=== PATIENT | female | born 1960 | race Caucasian/White ===

== ENCOUNTER → 2016-11-21 | Outpatient (CLI) | payer MEDICAID ==
[~2016-11-21] MED LIST: ALPRAZOLAM0.5 M3 PO; BENTYL10 M1 PO; CLARITHROMYCIN500 MG PO; KEFLEX500 M1 PO; MELOXICAM15 MG PO; MUCINEX600 M1 PO; NEURONTIN 300M300 MG PO; PANTOPRAZOLE SO40 MG PO; PERCOCET 10 MG1 EACH PO; PERCOCET 325 MG1 TA3 PO; PERCOCET 5/3251 EACH PO; PREDNISONE 10MG10 MG PO; PRILOSEC40 MG PO; VENTOLIN H0.09 MG/AC IH; VITAMIN D1000 IU PO; VOLTAREN75 MG OR; XANAX 1MG TABLET1 MG PO; ZANTAC 150150 MG PO; ZOFRAN ODT4 MG PO
--- NOTE | 2016-11-21 10:01 | RADIOLOGY REPORT PS360 ---
UGI SERIES W/ AIR HISTORY: Abdominal pain, left upper quadrant pain, history of ulcer, heartburn, chest pain, gastroesophageal reflux disease GERD ORDERING PHYSICIAN: ROHAN CORREIA PATIENT AGE: 56 years COMPARISON: None FINDINGS: The esophagus, stomach, and duodenum have an unremarkable appearance. There is no evidence of hiatal hernia. No ulcer or mass evident. No mucosal abnormalities apparent. There is normal peristalsis. The duodenal C-loop is nondisplaced. No hiatal hernia is evident. Reflux was not demonstrated during the exam. FLUOROSCOPY TIME : 1 minute and 34 seconds. IMPRESSION: Negative upper GI
== END ==
LOC: RAD 08:51
DX: K21.9 Gastro-esophageal reflux disease without esophagitis (principal)

== ENCOUNTER 2017-03-04 10:09 | Emergency (ER) | payer MEDICAID ==
[~2017-03-04] VITALS: Ht 177.8 cm; Wt 106.6 kg
[~2017-03-04 10:09] MED LIST changes: +NEXIUM20 MG PO; +TESSALON PERLE100 M1 PO
--- NOTE | 2017-03-04 10:38 | Emergency Room Report ---
History of Present Illness Time Seen by [id number] Presenting Problem in Triage Pt arrived:Walked Presenting Problem:PT C/O LEFT HEEL ,ANKLE AND LEG PAIN. DENIES ANY INJURY AND ADVISES IT HAS BEEN ONGOING FOR A COUPLE OF MONTHS Onset of symptoms date/time:/ or onset unknown for:MEDICAL HX UNKNOWN Treatment Prior to Arrival: TOEING STOCKINGS Provided by: Sepsis Risk Assessment: Temp: 98.2 B/P: MAP: Pulse: 73 Resp: 16 Recent fever? N Clinical Suspician of Infection? N Mental Status: 1 - Regular (Normal Baseline) Sepsis Risk:Low Sepsis Risk Have you (or family members/close friends) recently traveled outside the [place]? N If Yes, where/when: Have you had exposure to infectious disease within the past month? N TB? Other? Specify: Source patient, RN notes reviewed, RN/MD Exam Limitations no limitations Comment Patient presents to the emergency room with LEFT heel/LEFT foot pain for the past 2 months (December). Patient was unable to seek medical care over the past few months since her son has recently. ALLERGIES Coded Allergies: duloxetine (From CYMBALTA) (Mild, 06/08/15) pregabalin (From LYRICA) (Mild, 06/08/15) Home Medications Active Scripts Benzonatate (Tessalon Perle) 100 MG PO TID #15 SGL Prov: 01/20/17 Ondansetron (Zofran 4MG Odt) 4 MG PO Q6HP PRN NAUSEA AND VOMITING #10 ODT Prov: 10/08/16 DICYCLOMINE HCL (Bentyl) 10 MG PO TIDP PRN cramping #10 CAP Prov: 10/08/16 Oxycodone 10 Mg\[id number] (Oxycodone-Acetaminophen 10-325) 1 TAB PO QID PRN pain #120 TAB Prov: 06/05/15 Reported Medications Gabapentin (Neurontin 300MG) 300 MG PO BID Esomeprazole Magnesium (Nexium) 20 MG PO DAILY History Medical History General CAD? No Angina: No ID: No Hypertension? No Hyperlipidemia? No CHF? No DVT? No PE? No COPD? No Asthma? No Anemia? No GERD? No Gastric ulcers? No GI Bleed? No Hernia? No Thyroid Problems? No Hypothyroidism? No CVA? No Seizures? No Diabetes? No Renal Insuffiency? No End Stage Renal Disease? No UTI? No Stones? No BPH? No GB Disease: No Nephritic Syndrome? No Asplenia? No Hepatitis? No Sickle Cell Disease? No Arthritis? Yes Migraines? No Cataracts? No Glaucoma? No MRSA? No HIV? No TB? No Anxiety? No Depression? No Cancer? 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 No: respiratory distress. Lung Sounds bilateral: normal breath sounds, lungs clear. Cardiovascular normal exam, regular rate/rhythm, no peripheral edema, no gallop, no JVD, no murmur, no rub, normal peripheral pulses Extremities normal range of motion, normal inspection, left heel tender to palpation, left plantar web tender to palpation Neurologic alert, grape picker II-XII nml as tested, normal exam, oriented x 3 Skin intact, normal color, warm/dry Medical Decision Making LABS/Meds/Orders Pt receiving controlled substance in ED? No Comment Arrangements made for patient to see Dr. Russell today. Patient advised that she has a history of gastritis, refusing NSAIDs. Steroids would have the same risk with NSAIDs, prefer to refer patient to mds coordinator. Results/Orders Orders Procedure Date/time Status FOOT-RT-3 VIEWS 03/04 1019 Active FOOT-LT-3 VIEWS 03/04 101 Active ANKLE-RT-3 VIEWS 03/04 101 Active ANKLE-LT-3 VIEWS 03/04 101 Active XRAY/CT/US XRAY/CT/US XRAY x-rays LEFT foot negative, x-ray LEFT ankle negative exc left heel osteophite , x-ray LEFT ankle negative, x-ray RIGHT ankle negative Departure Departure Time of Disposition 1035 Disposition DC Home or Self Care(routine) Clinical Impression Primary Impression: Plantar fasciitis of left foot Condition STABLE Referrals AUGUSTIN RUSSELL DPM: Today after leaving ER at 3 pm Patient Instructions DI for Plantar Fasciitis Additional Instructions Please follow-up with Dr. Russell at 3pm, as scheduled from the emergency room. Discharge Counseling Counseled pt/family regarding diagnosis, test results, medications/RX, home care, follow up needs Comment Please follow-up with Dr. Russell at 3pm, as scheduled from the emergency room. ED Critical Care Critical Care No at 1106
--- NOTE | 2017-03-04 10:38 | Emergency Room Report ---
History of Present Illness Time Seen by [id number] Presenting Problem in Triage Pt arrived:Walked Presenting Problem:PT C/O LEFT HEEL ,ANKLE AND LEG PAIN. 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 N Clinical Suspician of Infection? N Mental Status: 1 - Regular (Normal Baseline) Sepsis Risk:Low Sepsis Risk Have you (or family members/close friends) recently traveled outside the [place]? N If Yes, where/when: Have you had exposure to infectious disease within the past month? N TB? Other? Specify: Source patient, RN notes reviewed, RN/MD Exam Limitations no limitations Comment Patient presents to the emergency room with LEFT heel/LEFT foot pain for the past 2 months (December). Patient was unable to seek medical care over the past few months since her son has recently. ALLERGIES Coded Allergies: duloxetine (From CYMBALTA) (Mild, 06/08/15) pregabalin (From LYRICA) (Mild, 06/08/15) Home Medications Active Scripts Benzonatate (Tessalon Perle) 100 MG PO TID #15 SGL Prov: 01/20/17 Ondansetron (Zofran 4MG Odt) 4 MG PO Q6HP PRN NAUSEA AND VOMITING #10 ODT Prov: 10/08/16 DICYCLOMINE HCL (Bentyl) 10 MG PO TIDP PRN cramping #10 CAP Prov: 10/08/16 Oxycodone 10 Mg\[id number] (Oxycodone-Acetaminophen 10-325) 1 TAB PO QID PRN pain #120 TAB Prov: 06/05/15 Reported Medications Gabapentin (Neurontin 300MG) 300 MG PO BID Esomeprazole Magnesium (Nexium) 20 MG PO DAILY History Medical History General CAD? No Angina: No [place]: No Hypertension? No Hyperlipidemia? No CHF? No DVT? No PE? No COPD? No Asthma? No Anemia? No GERD? No Gastric ulcers? No GI Bleed? No Hernia? No Thyroid Problems? No Hypothyroidism? No CVA? No Seizures? No Diabetes? No Renal Insuffiency? No End Stage Renal Disease? No UTI? No Stones? No BPH? No GB Disease: No Nephritic Syndrome? No Asplenia? No Hepatitis? No Sickle Cell Disease? No Arthritis? Yes Migraines? No Cataracts? No Glaucoma? No MRSA? No HIV? No TB? No Anxiety? No Depression? No Cancer? 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 No: respiratory distress. Lung Sounds bilateral: normal breath sounds, lungs clear. Cardiovascular normal exam, regular rate/rhythm, no peripheral edema, no gallop, no JVD, no murmur, no rub, normal peripheral pulses Extremities normal range of motion, normal inspection, left heel tender to palpation, left plantar web tender to palpation Neurologic alert, contact lens cutter II-XII nml as tested, normal exam, oriented x 3 Skin intact, normal color, warm/dry Medical Decision Making LABS/Meds/Orders Pt receiving controlled substance in ED? No Comment Arrangements made for patient to see Dr. Russell today. Patient advised that she has a history of gastritis, refusing NSAIDs. Steroids would have the same risk with NSAIDs, prefer to refer patient to leaf conditioner helper. Results/Orders Orders Procedure Date/time Status FOOT-RT-3 VIEWS 03/04 1019 Active FOOT-LT-3 VIEWS 03/04 101 Active ANKLE-RT-3 VIEWS 03/04 101 Active ANKLE-LT-3 VIEWS 03/04 101 Active XRAY/CT/US XRAY/CT/US XRAY x-rays LEFT foot negative, x-ray LEFT ankle negative exc left heel osteophite , x-ray LEFT ankle negative, x-ray RIGHT ankle negative Departure Departure Time of Disposition 1035 Disposition DC Home or Self Care(routine) Clinical Impression Primary Impression: Plantar fasciitis of left foot Condition STABLE Referrals AUGUSTIN RUSSELL DPM: Today after leaving ER at 3 pm Patient Instructions DI for Plantar Fasciitis Additional Instructions Please follow-up with Dr. Russell at 3pm, as scheduled from the emergency room. Discharge Counseling Counseled pt/family regarding diagnosis, test results, medications/RX, home care, follow up needs Comment Please follow-up with Dr. Russell at 3pm, as scheduled from the emergency room. ED Critical Care Critical Care No at 1102
--- OUTSIDE RECORDS SUMMARY | 2017-03-04 10:45 | External Medical Summary Rpt ---
Author Author , VERONICA Mccullough VERONICA Address Unknown Phone [email or web address] Care Team Providers Care Curer Foam Rubber Name Role Phone [employer] Unavailable Unavailable INC, [employer] Unavailable Unavailable INC, [employer] AFUSEH GÉNESIS, AFUSEH Unavailable Unavailable GÉNESIS DONNA OLVERA, Unavailable Unavailable ,PSC, DONNA OLVERA MD,PSC BESSON, BESSON Unavailable Unavailable HENSLEY, HENSLEY Unavailable Unavailable HENSLEY ALL, HENSLEY ALL Unavailable Unavailable BUX ANJ, BUX ANJ Unavailable Unavailable LEONARD, Unavailable Unavailable LEONARD COOK MARCOS, COOK MARCOS Unavailable Unavailable SCOTT JUDY, Unavailable Unavailable SCOTT JUDY DUFF JULIANNE, DUFF JULIANNE Unavailable Unavailable [facility] Unavailable Unavailable TRANSPORTATION SER, [facility] [employer] CHILO JUHI, CHILO Unavailable Unavailable JUHI GANZEL, GANZEL Unavailable Unavailable GANZEL SAMI, GANZEL Unavailable Unavailable SAMI SHRAVAN CRUZ MD, Unavailable Unavailable SHRAVAN CRUZ MD HARPEL PHILOMENA, HARPEL Unavailable Unavailable PHILOMENA [facility] Unavailable Unavailable INC, [facility] Unavailable Unavailable HOSPITAL P, [facility] P [facility], Unavailable Unavailable [facility] FELIX, FELIX Unavailable Unavailable [facility], [facility] MONISHA WOODS MD, MONISHA Unavailable Unavailable PEGGY SANCHEZ [facility]available [facility], [facility] PETTEY, PETTEY Unavailable Unavailable PETTEY JAM, PETTEY Unavailable Unavailable JAM PICKLYDIA JR IVY, Unavailable Unavailable PICKLYDIA JR IVY KASSI TOD, KASSI TOD Unavailable Unavailable [facility], [facility] MAKENNA SHE, Unavailable Unavailable MAKENNA SHE STONE, STONE Unavailable Unavailable STONE LALITA, STONE LALITA Unavailable Unavailable [facility], Unavailable Unavailable [facility] Purpose Continuity of Care Document - 11-18-2013 through 2016 Problems Code Diagnosis DOS Provider Status R0602 SHORTNESS 01-20-2017 [facility] M4726 OTH 12-20-2016 DONNA SPONDYLOSIS MD MAY,PSC W/RADICULOP ATHY LUMBAR REGION [id number] CORRECTION 12-20-2016 DONNA CURRENT USE MAY OF OPIATE ,PSC ANALGESIC M1712 UNILATERAL 11-28-2016 [facility] PRIMARY PHYSICIANS OSTEOARTHRI GROUP TIS LEFT KNEE K219 GASTRO-ESOP 11-21-2016 [facility] H RE[facility]UX [facility] DISEASE INC WITHOUT ESOPHAGITIS R1012 LEFT UPPER 11-21-2016 [facility] R12 HEARTBURN 11-21-2016 [facility] X61386 OTHER 11-15-2016 [facility] SPECIFIED [facility] ARTHRITIS INC LEFT SHOULDER M7542 IMPINGEMENT 11-15-2016 [facility] SYNDROME [facility] OF LEFT INC SHOULDER M170 BILATERAL 11-13-2016 [facility] PRIMARY PHYSICIANS OSTEOARTHRI GROUP TIS OF KNEE [id number] PRIMARY 11-13-2016 [facility] OSTEOARTHRI PHYSICIANS TIS GROUP UNSPECIFIED SHOULDER M129 ARTHROPATHY 11-07-2016 [facility] PHYSICIANS UNSPECIFIED GROUP R69 ILLNESS 10-28-2016 [facility] UNSPECIFIED TRANSPORTAT ION SER J80113 PRIMARY 10-24-2016 [facility] OSTEOAR[facility]ICAL TIS LEFT IMAGING ASS SHOULDER C02895 PAIN IN 10-24-2016 [facility] LEFT MEDICAL SHOULDER IMAGING ASS A084 VIRAL 10-08-2016 [facility] P UNSPECIFIED K529 NONINFECTIV 10-08-2016 [facility], GASTROENTER PLLC ITIS & COLITIS UNS K5790 DIVERTICULO 10-08-2016 [facility] SNYDER PART PHYSICIANS, UNS W/O PLLC PERF/ABSC W/O BLEED K6389 OTHER 10-08-2016 [facility] SPECIFIED [facility]ICAL DISEASES OF IMAGING ASS INTESTINE R0789 OTHER CHEST 10-08-2016 [facility]IN [facility] R1084 GENERALIZED 10-08-2016 [facility] ABDOMINAL [facility] PAIN [facility]ING [facility] R1110 VOMITING 10-08-2016 [facility] UNSPECIFIED [facility] IM[facility]ING ASS R911 SOLITARY 06-07-2016 [facility] PULMONARY [facility] NODULE INC R918 OTHER 06-07-2016 [facility] NONSPECIFIC MEDICAL ABNORMAL IMAGING ASS FINDING OF LUNG FIELD J40 BRONCHITIS 05-27-2016 [facility] NOT PHYSICIANS SPECIFIED GROUP ACUTE OR CHRONIC M5416 RADICULOPAT 04-30-[address] [facility] Z1231 ENCOUNTER 04-23-2016 [facility] SCREENING [facility]ICAL MAMMO MALIG IMAGING ASS NEOPLASM BREAST R05 COUGH 04-09-2016 [facility] M545 LOW BACK 04-05-2016 [facility]OM[facility]ON PAIN MD MAY,[facility] E06158 PAIN IN 03-22-2016 [facility] RIGHT KNEE PHYSICIANS GROUP W38850 PAIN IN 03-22-2016 [facility] LEFT KNEE [facility]ICAL [facility]ING [facility] J189 PNEUMONIA 12-04-2015 [facility] UNSPECIFIED [facility] ORGANISM INC R079 CHEST PAIN 12-04-2015 [facility] UNSPECIFIED [facility]ING ASS K828 OTHER 06-27-2015 [facility] SPECIFIED MEDICAL DISEASES OF IMAGING ASS GALLBLADDER N854 MALPOSITION 06-27-2015 [facility] OF [facility]US [facility]ICAL IM[facility] R102 PELVIC AND 06-27-2015 [facility] PERINEAL [facility] PAIN [facility] Z1212 ENCOUNTER 06-20-2015 SHRAVAN CRUZ MD MALIGNANT NEOPLASM RECTUM N926 IRREGULAR 06-14-2015 [facility] MENSTRUATIO [facility]ICAL N IMAGING ASS UNSPECIFIED R197 DIARRHEA 06-12-2015 [facility] UNSPECIFIED PHYSICIANS GROUP Z720 TOBACCO USE 06-08-2015 [facility] INC 7202 SACROILIITI 04-13-2015 [facility] S NOT [facility] ELSEWHERE INC CLASSIFIED 54701 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[facility] 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[facility] OSACRAL INC INTERVERTEB RAL DISC V571 OTHER 04-13-2015 [facility] PHYSICAL [facility] THERAPY INC 19771 PRIMARY 04-11-2015 [facility] LOCALIZED PHYSICIANS OSTEOARTHRO GROUP SIS LOWER LEG 8248 UNSPECIFIED 04-11-2015 [facility] CLOSED PHYSICIANS FRACTURE OF GROUP ANKLE V5416 AFTERCARE 04-11-2015 [facility] HEALING [facility] TRAUMATIC INC FRACTURE LOWER LEG V5419 AFTERCARE 04-11-2015 [facility] TRAUMATIC IMAGING ASS FRACTURE OTHER BONE 7213 LUMBOSACRAL 02-27-2015 [facility] SPONDYLOSIS IMAGING ASS WITHOUT MYELOPATHY 93800 DISPLCMT 02-27-2015 [facility] LUMBAR [facility]ICAL INTERVERT IMAGING ASS DISC W/O MYELOPATHY 68725 SPINAL STEN 02-27-2015 [facility] LUMB REG MEDICAL W/O IMAGING ASS NEUROGENIC CLAUDICATIO N 7243 SCIATICA 02-27-2015 [facility] INC 7265 ENTHESOPATH 11-14-2014 MONISHA Marsh OF HIP MD REGION 91039 11-03-2014 [facility] TRANSPORTAT ION SER 8240 CLOSED 11-03-2014 [facility] FRACTURE OF TECHNOLOGIE MEDIAL S INC MALLEOLUS 8242 CLOSED 11-03-2014 [facility] FRACTURE OF PHYSICIANS LATERAL GROUP MALLEOLUS 88600 PAIN IN 10-30-2014 [facility] JOINT, MEDICAL ANKLE AND IMAGING ASS FOOT 7295 PAIN IN 10-30-2014 [facility] SOFT MEDICAL TISSUES OF IMAGING ASS LIMB 08055 CLOSED 10-30-2014 [facility] FRACTURE OF TECHNOLOGIE S INC UNSPECIFIED PART OF FIBULA 490 BRONCHITIS 10-25-2014 [facility] NOT PHYSICIANS SPECIFIED GROUP ACUTE OR CHRONIC 7823 EDEMA 10-13-2014 [facility] PHYSICIANS GROUP 14975 PAIN IN 09-18-2014 [facility] JOINT [facility] PELVIC INC REGION AND THIGH 53412 PAIN IN 09-18-2014 [facility] JOINT, [facility] LOWER LEG INC 87395 OTHER ACUTE 09-09-2014 [facility] PAIN PHYSICIANS GROUP 69031 OTHER 09-09-2014 [facility] KERATOSIS 94037 OSTEOARTHRO 08-29-2014 [facility] S UNSPEC PHYSICIANS WHETHER GROUP GEN/LOC UNSPEC SITE 7242 LUMBAGO 08-29-2014 [facility] PHYSICIANS GROUP 82769 OSTEOARTHRO 08-17-2014 [facility] SIS UNSPEC [facility] WHETHER INC GEN/LOC LOWER LEG 72944 UNSPECIFIED 08-17-2014 [facility] PHYSICIANS ARTHROPATHY GROUP , LOWER LEG 24804 GENERALIZED 08-17-2014 [facility] PAIN [facility] INC 9233 CONTUSION 08-17-2014 [facility] PHYSICIANS GROUP 9599 INJURY 08-17-2014 [facility] OTHER AND MEM [facility]OS[facility] UNSPECIFIED INC UNSPECIFIED SITE 24488 DIVERTICULO 08-10-2014 [facility] SIS OF PHYSICIANS COLON GROUP 5641 IRRITABLE 08-10-2014 [facility] BOWEL PHYSICIANS SYNDROME GROUP 87236 ABDOMINAL 08-10-2014 [facility] PAIN OTHER PHYSICIANS SPECIFIED GROUP SITE V7651 SPECIAL 08-10-2014 [facility] SCREENING PHYSICIANS FOR GROUP MALIGNANT NEOPLASMS COLON V7231 ROUTINE 08-04-2014 [facility] AL EXAMINATION 51574 OTHER 07-28-2014 [facility] CHRONIC PHYSICIANS PAIN GROUP 5699 UNSPECIFIED 05-30-2014 [facility] DISORDER PHYSICIANS OF GROUP INTESTINE 7962 ELEVATED BP 05-30-2014 [facility] READING PHYSICIANS WITHOUT DX GROUP HYPERTENSIO N 8469 UNSPECIFIED 05-26-2014 [facility] SITE N EMERGENCY SACROILIAC PHYSI REGION SPRAIN&STRA IN E9288 OTHER 05-26-2014 [facility] ACCIDENT N EMERGENCY [facility] 67680 OTHER 03-24-2014 [facility] MALAISE AND [facility] FATIGUE INC 66696 ABDOMINAL 03-24-2014 [facility] PAIN RIGHT [facility] UPPER INC QUADRANT V7612 OTHER 03-24-2014 [facility] SCREENING [facility] MAMMOGRAM INC 23267 ESOPHAGEAL 03-15-2014 [facility] REFLUX PHYSICIANS GROUP 07409 SWELLING OF 03-01-2014 [facility] LIMB [facility] INC 462 ACUTE 01-24-2014 [facility] PHARYNGITIS N EMERGENCY PHYSI 71434 ACUTE 01-24-2014 [facility] LARYNGITIS, N EMERGENCY WITHOUT PHYSI MENTION OF OBSTRUCTIO 2689 UNSPECIFIED 11-23-2013 [facility] DEFICIENCY V5869 LONG-TERM 11-23-2013 [facility] USE OF OTHER MEDICATIONS Medications Na ND Rx Da Fi Fi Am Da Di Ph RX Ph St me C No te ll ll ou ys ag ar # ys at rm s nt no ma ic us Or Da si cy ia de te s n re d BE 67 07 08 15 5 00 CL Ac NZ 87 -0 -0 .0 00 IN ti ON 70 3- 4- 00 00 IC ve AT 10 20 20 43 AT 50 17 17 57 PH E 1 81 AR 10 MA 0 CY MG CA PS UL E AL 67 07 08 20 10 00 CL Ac DE 25 -0 -0 .0 00 IN ti AZ 30 5- 4- 00 00 IC ve OL 90 20 20 43 AM 11 17 17 59 PH 1 24 AR 0. MA 5 CY MG TA BL ET MU 63 07 08 20 10 00 CL Ac CI 82 -0 -0 .0 00 IN ti NE 40 5- 4- 00 00 IC ve X 05 20 20 43 DM 63 17 17 58 PH 2 09 AR ER MA CY 60 0- 30 MG TA BL ET OX 13 07 08 90 30 00 CL Ac YC 10 -1 -0 .0 00 IN ti OD 70 3- 4- 00 00 IC ve ON 04 20 20 43 E- 40 17 17 59 PH AC 1 28 AR ET MA AM CY IN OP HE N 5- 32 5 ME 59 07 08 21 6 00 CL Ac TH 74 -0 -0 .0 00 IN ti YL 60 5- 4- 00 00 IC ve DE 00 20 20 43 ED 10 17 17 58 PH NI 3 08 AR SO MA LO CY NE 4 MG DO SE PK AZ 59 07 08 3. 3 00 CL Ac IT 76 -0 -0 00 00 IN ti HR 23 5- 4- 0 00 IC ve OM 07 20 20 43 YC 00 17 17 58 PH IN 1 10 AR MA 50 CY 0 MG TA BL ET GA 68 07 08 12 30 00 CL Ac BA 38 -1 -0 0. 00 IN ti PE 20 0- 4- 00 00 IC ve NT 20 20 20 0 43 IN 40 17 17 32 PH 5 74 AR 60 MA 0 CY MG TA BL ET NE 00 07 08 28 28 00 CL Ac XI 57 -1 -0 .0 00 IN ti UM 32 0- 4- 00 00 IC ve 45 20 20 43 24 02 17 17 64 PH HR 8 98 AR MA 22 CY .3 MG CA PS UL E FL 68 07 08 3. 6 00 CL Ac UC 46 -1 -0 00 00 IN ti ON 20 4- 4- 0 00 IC ve AZ 10 20 20 43 OL 34 17 17 69 PH E 0 88 AR 15 MA 0 CY MG TA BL ET AL 67 06 07 30 10 00 CL Ac DE 25 -2 -2 .0 00 IN ti AZ 30 1- 1- 00 00 IC ve OL 90 20 20 43 AM 11 17 17 45 PH 1 96 AR 0. MA 5 CY MG TA BL ET TI 60 06 07 90 30 00 CL Ac ZA 50 -0 -0 .0 00 IN ti NI 50 7- 7- 00 00 IC ve DI 25 20 20 43 NE 20 17 17 32 PH 2 75 AR HC MA L CY 4 MG TA BL ET GA 68 06 07 12 30 00 CL Ac BA 38 -0 -0 0. 00 IN ti PE 20 7- 7- 00 00 IC ve NT 20 20 20 0 43 IN 40 17 17 32 PH 5 74 AR 60 MA 0 CY MG TA BL ET DI 00 06 07 12 30 00 CL Ac CY 59 -1 -0 0. 00 IN ti CL 10 3- 7- 00 00 IC ve OM 79 20 20 0 42 IN 51 17 17 80 PH E 0 27 AR 20 MA CY MG TA BL ET NE 00 06 07 28 28 00 CL Ac XI 57 -1 -0 .0 00 IN ti UM 32 3- 7- 00 00 IC ve 45 20 20 42 24 02 17 17 80 PH HR 8 24 AR MA 22 CY .3 MG CA PS UL E OX 13 06 07 90 30 00 CL Ac YC 10 -1 -0 .0 00 IN ti OD 70 3- 7- 00 00 IC ve ON 04 20 20 43 E- 40 17 17 32 PH AC 1 76 AR ET MA AM CY IN OP HE N 5- 32 5 OX 00 05 06 90 30 00 WA Ac YC 40 -1 -0 .0 00 L- ti OD 60 4- 2- 00 02 MA ve ON 51 20 20 24 RT E- 20 17 17 02 AC 1 77 PH ET AR AM MA IN CY OP HE #5 N 91 5- 32 5 NE 00 05 06 28 28 00 CL Ac XI 57 -1 -0 .0 00 IN ti UM 32 1- 2- 00 00 IC ve 45 20 20 42 24 02 17 17 80 PH HR 8 24 AR MA 22 CY .3 MG CA PS UL E DI 00 05 06 12 30 00 CL Ac CY 59 -1 -0 0. 00 IN ti CL 10 1- 2- 00 00 IC ve OM 79 20 20 0 42 IN 51 17 17 80 PH E 0 27 AR 20 MA CY MG TA BL ET GA 68 05 06 90 30 00 CL Ac BA 38 -1 -0 .0 00 IN ti PE 20 1- 2- 00 00 IC ve NT 20 20 20 42 IN 40 17 17 75 PH 5 98 AR 60 MA 0 CY MG TA BL ET TI 60 05 06 90 30 00 CL Ac ZA 50 -1 -0 .0 00 IN ti NI 50 1- 2- 00 00 IC ve DI 25 20 20 42 NE 20 17 17 75 PH 2 99 AR HC MA L CY 4 MG TA BL ET ON 00 04 05 24 8 00 CL Ac DA 78 -2 -1 .0 00 IN ti NS 15 7- 9- 00 00 IC ve ET 23 20 20 42 RO 96 17 17 94 PH N 4 49 AR OD MA T CY 8 MG TA BL ET NE 00 04 05 28 28 00 CL Ac XI 57 -1 -0 .0 00 IN ti UM 32 3- 5- 00 00 IC ve 45 20 20 42 24 02 17 17 80 PH HR 8 24 AR MA 22 CY .3 MG CA PS UL E BU 00 04 05 90 30 00 CL Ac SP 37 -1 -0 .0 00 IN ti IR 81 3- 5- 00 00 IC ve ON 20 20 42 E 00 17 17 80 PH HC 1 26 AR L MA 5 CY MG TA BL ET OX 13 04 05 90 30 00 CL Ac YC 10 -1 -0 .0 00 IN ti OD 70 4- 5- 00 00 IC ve ON 04 20 20 42 E- 40 17 17 80 PH AC 1 74 AR ET MA AM CY IN OP HE N 5- 32 5 GA 68 04 05 90 30 00 CL Ac BA 38 -1 -0 .0 00 IN ti PE 20 0- 5- 00 00 IC ve NT 20 20 20 42 IN 40 17 17 75 PH 5 98 AR 60 MA 0 CY MG TA BL ET TI 60 04 05 90 30 00 CL Ac ZA 50 -1 -0 .0 00 IN ti NI 50 0- 5- 00 00 IC ve DI 25 20 20 42 NE 20 17 17 75 PH 2 99 AR HC MA L CY 4 MG TA BL ET DI 00 04 05 12 30 00 CL Ac CY 59 -1 -0 0. 00 IN ti CL 10 3- 5- 00 00 IC ve OM 79 20 20 0 42 IN 51 17 17 80 PH E 0 27 AR 20 MA CY MG TA BL ET ON 00 03 04 10 3 00 CL Ac DA 78 -2 -1 .0 00 IN ti NS 15 1- 4- 00 00 IC ve ET 23 20 20 42 RO 86 17 17 59 PH N 4 04 AR OD MA T CY 4 MG TA BL ET DI 00 03 04 10 3 00 CL Ac CY 59 -2 -1 .0 00 IN ti CL 10 1- 4- 00 00 IC ve OM 79 20 20 42 IN 40 17 17 59 PH E 1 03 AR 10 MA CY MG CA PS UL E TI 60 03 04 90 30 00 CL Ac ZA 50 -1 -0 .0 00 IN ti NI 50 5- 7- 00 00 IC ve DI 25 20 20 42 NE 20 17 17 13 PH 2 20 AR HC MA L CY 4 MG TA BL ET OX 13 03 04 90 30 00 CL Ac YC 10 -1 -0 .0 00 IN ti OD 70 5- 7- 00 00 IC ve ON 04 20 20 42 E- 40 17 17 51 PH AC 1 94 AR ET MA AM CY IN OP HE N 5- 32 5 GA 68 03 04 90 30 00 CL Ac BA 38 -1 -0 .0 00 IN ti PE 20 5- 7- 00 00 IC ve NT 20 20 20 42 IN 40 17 17 13 PH 5 19 AR 60 MA 0 CY MG TA BL ET TI 60 02 03 90 30 00 CL Ac ZA 50 -1 -1 .0 00 IN ti NI 50 3- 0- 00 00 IC ve DI 25 20 20 42 NE 20 17 17 13 PH 2 20 AR HC MA L CY 4 MG TA BL ET GA 68 02 03 90 30 00 CL Ac BA 38 -1 -1 .0 00 IN ti PE 20 3- 0- 00 00 IC ve NT 20 20 20 42 IN 40 17 17 13 PH 5 19 AR 60 MA 0 CY MG TA BL ET OX 13 02 03 90 30 00 CL Ac YC 10 -1 -1 .0 00 IN ti OD 70 3- 0- 00 00 IC ve ON 04 20 20 42 E- 40 17 17 21 PH AC 1 06 AR ET MA AM CY IN OP HE N 5- 32 5 TI 57 01 02 90 30 00 CL Ac ZA 66 -1 -1 .0 00 IN ti NI 40 4- 0- 00 00 IC ve DI 50 20 20 41 NE 31 17 17 52 PH 8 86 AR HC MA L CY 4 MG TA BL ET GA 68 01 02 90 30 00 CL Ac BA 38 -1 -1 .0 00 IN ti PE 20 4- 0- 00 00 IC ve NT 20 20 20 41 IN 40 17 17 52 PH 5 85 AR 60 MA 0 CY MG TA BL ET OX 68 01 02 90 30 00 CL Ac YC 30 -1 -1 .0 00 IN ti OD 80 4- 0- 00 00 IC ve ON 84 20 20 41 E- 10 17 17 91 PH AC 1 60 AR ET MA AM CY IN OP HE N 5- 32 5 TI 57 12 01 90 30 00 CL Ac ZA 66 -1 -0 .0 00 IN ti NI 40 5- 9- 00 00 IC ve DI 50 20 20 41 NE 31 16 17 52 PH 8 86 AR HC MA L CY 4 MG TA BL ET GA 68 12 01 90 30 00 CL Ac BA 38 -1 -0 .0 00 IN ti PE 20 5- 9- 00 00 IC ve NT 20 20 20 41 IN 40 16 17 52 PH 5 85 AR 60 MA 0 CY MG TA BL ET OX 68 12 01 90 30 00 CL Ac YC 30 -1 -0 .0 00 IN ti OD 80 5- 9- 00 00 IC ve ON 84 20 20 41 E- 10 16 17 63 PH AC 1 74 AR ET MA AM CY IN OP HE N 5- 32 5 Procedures Procedure DOS Code Location Performer Comment RADIOLOGI 545[address] [facility] C EXAM 7 MEDICAL CHEST 2 IMAGING VIEWS ASS FRONTAL&L ATERAL DRUG TEST 06885 DONNA FARLEY PRSMV 7 SIOBHAN OLVERA MD,PSC CHEMISTRY ANALYZERS ARTHROCEN 67743 [facility] PETTEY TESIS 7 PHYSICIAN ASPIR&/IN S GROUP J MAJOR JT/BURSA W/O US HYALURONA J7321 [facility] PETTEY N/DERIV 7 PHYSICIAN HYALGAN/S S GROUP UPARTZ IA INJ PER DOSE RADEX 83522 [facility] UPPER GI 7 [facility] W/WO INC INC GLUCAGON/ DELAY IMAGES W/KUB RADEX 12317 OSMANJENNIFER AYDEN UPPER GI 7 MEDICAL W/WO IMAGING GLUCAGON/ ASS DELAY IMGES W/O KUB OCCUPATIO 62567 [facility] NAL 7 [facility] THERAPY INC INC EVAL LOW COMPLEX 30 MINS HYALURONA J7321 [facility] PETTEY N/DERIV 7 PHYSICIAN HYALGAN/S S GROUP UPARTZ IA INJ PER DOSE HYALURONA J7321 [facility] PETTEY N/DERIV 7 PHYSICIAN HYALGAN/S S GROUP UPARTZ IA INJ PER DOSE DRUG TEST 71009 DONNA ARNDT PRSMV 7 BLUE OLVERA MD,[facility] CHEMISTRY ANALYZERS NONEMER A0120 [facility] FED[facility]ATED TRNSPRT: 7 [facility] SER ATION SER AREA/OTH SYS ARTHROCEN 66507 [facility] PETTEY TESIS 7 PHYSICIAN ASPIR&/IN S GROUP J MAJOR JT/BURSA W/O US INJ J0702 [facility] PETTEY BETAMETHA 7 PHYSICIAN SONE S GROUP ACETATE & PHOSPHATE 3 MG RADEX 67232 [facility] SHOULDER 7 [facility] COMPLETE INC INC MINIMUM 2 VIEWS ECG 20739 [facility] HARRIS ROUTINE 7 [facility] W/LEAST P 12 LDS I&R ONLY RHYTHM 63583 [facility] ARCE ECG 1-3 7 [facility] LEADS INC INC TRACING ONLY W/O I&R RADIOLOGI 18676 [facility] C EXAM 7 [facility] CHEST 2 INC INC VIEWS FRONTAL&[place] [address] [facility] TROPONIN 7 [facility] QUANTITAT INC INC UZMA BLOOD 12470 [facility] COUNT 7 [facility] COMPLETE INC INC AUTO&AUTO DIFRNTL WBC CREATINE 63590 [facility] KINASE 7 [facility] TOTAL INC INC ECG 97657 [facility] ROUTINE 7 [facility] ECG INC INC W/LEAST 12 LDS TRCG ONLY W/O I&[place] [address] [facility] ABDOMEN & 7 [facility] PELVIS [place] [address] [facility] INFUSION 7 [facility] THERAPY/P INC INC ROPHYLAXI S /DX 1ST TO 1 HR THERAPEUT 49846 [facility] IC 7 [facility] INJECTION INC INC IV PUSH EACH NEW DRUG COMPREHEN 92963 [facility] SIVE 7 [facility] METABOLIC INC INC PANEL CREATINE 01055 [facility] KINASE MB 7 [facility] FRACTION INC INC ONLY DRUG TEST 51690 DONNA ARNDT PRSMV 7 BLUE OLVERA MD,PSC CHEMISTRY ANALYZERS NONEMERG A0120 FEDERATED FEDERATED TRNSPRT: 7 [facility] TRANSPORT TRANSPORT MTN ATION SER ATION SER AREA/OTH SYS NONEMERG A0120 FEDERATED FEDERATED TRNSPRT: 6 [facility] TRANSPORT TRANSPORT MTN ATION SER ATION SER AREA/OTH SYS DRUG TEST G0479 DONNA ARNDT 6 BLUE OLVERA PRESUMP;I ,PSC NSTRUMENT ED CHEMISTRY ANLYZER CT THORAX 30988 YAZ[facility] YAZMIN W/O 6 [facility] CONTRAST INC INC MATERIAL THERAPEUT 68180 [facility] STONE LALITA IC 6 PHYSICIAN PROPHYLAC S GROUP TIC/DX INJECTION SUBQ/IM INJECTION J1040 [facility] STONE LALITA 6 PHYSICIAN METHYLPRE S GROUP DNISOLONE ACETATE 80 MG INJECTION J0696 [facility] STONE LALITA 6 PHYSICIAN CEFTRIAXO S GROUP NE SODIUM PER 250 MG NJX 21359 DONNA FARLEY ANES&/STR 6 SAMI OLVERA W/LEONARDO SANCHEZ,PSC TFRML EDRL LMBR/SAC 1 LVL NJX 52110 DONNA FARLEY ANES&/STR 6 SAMI OLVERA W/LEONARDO SANCHEZ,[facility] TFRML EDRL LMBR/SAC EA LV DRUG TEST G0479 DONNA FRALEY 6 SAMI OLVERA;Svetlana SANCHEZ,[facility] NSTRUMENT ED CHEMISTRY ANLYZER NONEMERG A0120 FEDERATED FEDERATED TRNSPRT: 6 MINI-BUS TRANSPORT TRANSPORT [facility] SYS SCREENING G0202 [facility] ARCE 6 [facility] MAMMOGRAP INC INC HY PADMA INCL CAD WHEN PERFORMD COMPUTER- 44574 [facility] AIDED 6 [facility] DETECTION INC INC SCREENING MAMMOGRAP HY RADIOLOGI 23113 [facility] ARCE C EXAM 6 [facility] CHEST 2 INC INC VIEWS FRONTAL&L ATERAL NONEMERG A0120 FEDERATED FEDERATED TRNSPRT: 6 [facility]I-BUS TRANSPORT TRANSPORT [facility] SYS RADIOLOGI 87786 [facility] ALL C EXAM 6 MEDICAL KNEE IMAGING COMPLETE ASS 4/MORE VIEWS INJECTION J1885 [facility] CHILO 6 PHYSICIAN JUHI KETOROLAC S GROUP TROMETHAM INE PER 15 MG THERAPEUT 37528 [facility] CHILO IC 6 PHYSICIAN JUHI PROPHYLAC S GROUP TIC/DX INJECTION SUBQ/IM CV STRS 19743 [facility] KARISHMA MARCOS TST 6 PHYSICIAN XERS&/OR S GROUP RX CONT ECG W/O I&R CT THORAX 86719 Y[facility] ARCE W/O 6 [facility] CONTRAST INC INC MATERIAL RADIOLOGI 50176 [place] [facility] ALL C 6 MEDICAL EXAMINATI IMAGING ON CHEST ASS SINGLE VIEW FRONTAL RADIOLOGI 68673 YAZMIN ARCE C EXAM 6 [facility] CHEST 2 INC INC VIEWS FRONTAL&L ATERAL RADIOLOGI 01718 YAZMIN ARCE C EXAM 6 [facility] CHEST 2 INC INC VIEWS FRONTAL&L ATERAL THERAPEUT 70339 [facility] CHILO IC 6 PHYSICIAN JUHI PROPHYLAC S GROUP TIC/DX INJECTION SUBQ/IM INJECTION J0696 [facility] CHILO 6 PHYSICIAN JUHI CEFTRIAXO S GROUP NE SODIUM [place] [address] [place] [address] YAZMIN CALHOUNON ABDOMEN & 5 [facility] PELVIS INC INC W/CONTRAS T MATERIAL LOCM Q9967 YAZMIN ARCE 300-399 5 [facility] MG/ML INC INC IODINE CONCENTRA TION PER ML COLLECTIO 76908 YAZMIN CALHOUNON N VENOUS 5 [facility] BLOOD INC INC VENIPUNCT URE URINLS 84924 SHRAVAN CRUZ DIP 5 NANCY SANCHEZ PHILOMENA STICK/TAB LET REAGNT NON-AUTO MICRSCPY CARCINOEM 91785 YAZMIN ARCE BRYONIC 5 [facility] [place] [address] YAZMIN ARCE UREA 5 [facility] NITROGEN INC INC QUANTITAT UZMA IMMUNOASS 42672 YAZMIN ARCE AY TUMOR 5 [facility] ANTIGEN INC INC QUANTITAT UZMA CREATININ 61011 YAZMIN ARCE E BLOOD 5 [facility] INC INC BLOOD 98276 SHRAVAN CRUZ OCCULT 5 NANCY QUACH PEROXIDAS E ACTV QUAL FECES 1-3 [place] [address] YAZMIN ARCE TRANSVAGI 5 [facility] [place] [address] YAZMIN ARCE LIPASE 5 [facility] INC INC COMPREHEN 19488 [facility] SIVE 5 [facility] METABOLIC INC INC PANEL BLOOD 45835 [facility]MIN ARCE COUNT 5 [facility] COMPLETE INC INC AUTO&AUTO DIFRNTL WBC URNLS DIP 42690 [facility]CE 5 [facility] STICK/TAB INC INC [place] [address] YAZMIN ARCE AMYLASE 5 [facility] INC INC INJECTION J2405 [facility] ARCE 5 [facility] ONDANSETR INC INC ON HCL PER 1 [place] [address] YAZMIN ARCE INFUSION 5 [facility] THERAPY/P INC INC ROPHYLAXI S /DX 1ST TO 1 HR THERAPEUT 47105 [facility]MIN [facility]CE IC 5 [facility] INJECTION INC INC IV PUSH EACH NEW DRUG APPL 02942 YAZMIN ARCE MODALITY 5 [facility] 1/> AREAS INC INC ELEC STIMJ EA 15 MIN INJECTION J1030 [facility] ARCE 5 [facility] METHYLPRE INC INC DNISOL[place]ETATE 40 [place] IN[place] [address] DEENA JOSEPHMARK JULIANNE JOINT 5 MD PEGGY, ARTHRGRPH PSC Y&/ANES/S TEROID W/DICK AUTOLOGOU G0460 YAMZIN ARCE S 5 [facility] PLATELET- INC INC RICH PLASMA RADEX 16235 Y[facility]MIN [facility]CE ANKLE 5 [facility] COMPLETE INC INC MINIMUM 3 VIEWS RADEX 92736 [place] [facility] ALL ANKLE 5 MEDICAL COMPLETE IMAGING MINIMUM 3 [place] [address] YAZMIN ARCE SPINAL 5 [facility] CANAL INC INC LUMBAR W/O CONTRAST MATERIAL 3D 30415 [place]OTT RENDERING 5 MEDICAL JUDY W/INTERP IMAGING & ASS POSTPROCE SS SUPERVISI ON RADEX 57689 [facility]KLE 5 [facility] COMPLETE INC INC MINIMUM 3 VIEWS RADEX 73963 YAZMIN YAZMIN ANKLE 5 [facility] COMPLETE INC INC MINIMUM 3 VIEWS RADEX 95460 YAZMIN ARCE ANKLE 5 [facility] COMPLETE INC INC MINIMUM 3 VIEWS CLTX DSTL 77966 [facility] FIBULAR 5 PHYSICIAN SHARLENE FX LAT S GROUP MALLS W/O MANJ NONEMERG A0120 FEDERATED FEDERATED TRNSPRT: 5 MINI-BUS TRANSPORT TRANSPORT MTN ATION SER ATION SER AREA/OTH SYS WALKING L4360 ADVANCED ADVANCED BOOT 5 TECHNOLOG TECHNOLOG PNEUMATC IES INC IES INC &/ VACUUM PREFAB CUSTM FIT RADEX 74142 [place] [facility]OTT FOOT 5 MEDICAL JUDY COMPLETE IMAGING MINIMUM 3 ASS VIEWS RADEX 24350 [place] ANKLE 5 MEDICAL JUDY COMPLETE IMAGING MINIMUM 3 ASS VIEWS ANKLE L4350 ADVANCED ADVANCED CONTROL 5 TECHNOLOG TECHNOLOG ORTHOSIS IES INC IES INC STIRRUP STYL RIGID PREFAB FLUOR 20568 MADAR BUX BUX ANJ NEEDLE/CA 5 MD BIGGS SPINE/PAR ASPINAL DX/THER ADDON INJECTION J1030 [facility] ARCE 5 [facility] METHYLPRE INC INC DNISOLONE ACETATE 40 MG LOCM Q9967 YAZMIN ARCE 300-399 5 [facility] MG/ML INC INC IODINE CONCENTRA TION PER ML ARTHROCEN 10890 [facility] ARCE TESIS 5 [facility] ASPIR&/IN INC INC J MAJOR JT/[place] IN[place] [address] MADAR BUX BUX ANJ JOINT 5 ARTHRGRP Y&/ANES/S TEROID W/DICK INJ PROC G0260 [facility]CE SI 5 [facility] JNT;ANES INC INC STEROID&/ TX AGT&ARTHR OGRPH THERAPEUT 93803 YAZMIN ARCE IC PX 1/> 5 [facility] AREAS INC INC EACH 15 MIN EXERCISES APPLICATI 78854 [facility] ARCE ON 5 [facility] MODALITY INC INC 1/> AREAS HOT/COLD PACKS APPL 81120 Y[facility]MIN ARCE MODALITY 5 [facility] 1/> AREAS INC INC ULTRASOUN D EA 15 MIN MANUAL 00438 Y[facility] ARCE THERAPY 5 [facility] TQS 1/> INC INC REGIONS EACH 15 MINUTES APPL 61093 YAZMIN ARCE MODALITY 5 [facility] 1/> AREAS INC INC ELEC STIMJ UNATTENDE D THERAPEUT 61371 YAZMIN ARCE IC PX 1/> 5 [facility] AREAS INC INC EACH 15 MIN EXERCISES PHYSICAL 74899 Y[facility] ARCE THERAPY 5 [facility] [place] [address] [facility], PICKLESIM SURG 5 [facility] GROSS&JUHI ROSCOPIC EXAM EXC B9 30395 [facility] LESION 5 PHYSICIAN JUHI MRGN XCP S GROUP SK TG T/A/L 1.1-2.0 CM RADIOLOGI 52664 YAZMIN ARCE C EXAM 5 [facility] KNEE INC INC COMPLETE 4/MORE VIEWS RADEX 64581 YAZMIN ARCE FINGR 5 [facility] MINIMUM 2 INC INC VIEWS INJECTION J1040 [facility] CHILO 5 PHYSICIAN JUHI METHYLPRE S GROUP DNISOLONE ACETATE 80 MG INJECTION J1885 [facility] CHILO 5 PHYSICIAN JUHI KETOROLAC S GROUP TROMETHAM INE PER 15 MG THERAPEUT 91556 [facility] IC 5 PHYSICIAN JUHI PROPHYLAC S GROUP TIC/DX INJECTION SUBQ/IM CYTP C/V 18651 [facility], PICKLESIM AUTO THIN 5 LLC ER JR IVY LYR PREPJ SCR MNL RESCR PHYS SIGMOIDOS 91996 [facility] KASSI TOD COPY FLX 5 PHYSICIAN DX S GROUP W/COLLJ SPEC BR/WA IF PFRMD ANES 84120 [facility] 5 ANESTH SHE INTESTINE OF THE BLUE ENDOSCOPY DISTAL DUODENUM BASIC 70196 YAZMIN ARCE METABOLIC 5 [facility] PANEL INC INC CALCIUM TOTAL BLOOD 70062 YAZMIN ARCE COUNT 5 [facility] COMPLETE INC INC AUTO&AUTO DIFRNTL WBC THERAPEUT 36221 [facility] CH[facility] IC 4 PHYSICIAN JUHI PROPHYLAC S GROUP TIC/DX INJECTION SUBQ/IM INJECTION J1885 [facility] CHILO 4 PHYSICIAN JUHI KETOROLAC S GROUP TROMETHAM INE PER 15 MG THERAPEUT 55178 [facility] IC 4 PHYSICIAN JUHI PROPHYLAC S GROUP TIC/DX INJECTION SUBQ/IM INJECTION J1100 [facility] CHILO 4 PHYSICIAN JUHI DEXAMETHO S GROUP SONE SODIUM PHOSPHATE 1 MG HYALURONA J7325 [facility] N/DERIV 4 PHYSICIAN SHARLENE SYNVISC/S S GROUP YNVISC-ON E IA INJ 1 MG ARTHROCEN 44869 [facility] PETTESalma TESIS 4 PHYSICIAN SHARLENE ASPIR&/IN S GROUP J MAJOR JT/BUR[place] W/[place] [address] YAZMIN ARCE BLOOD/URI 4 [facility] C ACID INC INC ANTINUCLE 84090 Y[facility] ARCE AR 4 [facility] ANTIBODIE INC INC S MARIBELL GONADOTRO 85526 Y[facility]MIN ARCE PIN 4 [facility] FOLLICLE INC [place] [address] YAZMIN ARCE AMYLASE 4 [facility] [place] [address] YAZMIN ARCE ABDOMINAL 4 [facility] REAL INC INC TIME W/IMAGE LIMITED COMPUTER- 34656 YAZMIN ARCE AIDED 4 [facility] DETECTION INC INC SCREENING MAMMOGRAP HY GONADOTRO 82048 YAZMIN ARCE PIN 4 [facility] [place] [address] YAZMIN ARCE LIPASE 4 [facility] INC INC CYANOCOBA 66840 YAZMIN ARCE CARISA 4 [facility] VITAMIN INC INC B-12 HEPATITIS 54274 YAZMIN ARCE A 4 [facility] ANTIBODY INC INC HAAB RHEUMATOI 17575 YAZMIN Vivar FACTOR 4 [facility] QUANTITAT INC INC UZMA HEPATITIS 98867 Y[facility]MIN ARCE C 4 [facility] ANTIBODY INC INC SCREENING G0202 [facility]MIN ARCE 4 [facility] MAMMOGRAP INC INC HY PADMA INCL CAD WHEN PERFORMD SEDIMENTA 70175 YAZMIN ARCE TION RATE 4 [facility] RBC INC INC NON-AUTOM ATED IMMUNOASS 39243 YAZMIN ARCE AY NFCT 4 [facility] AGT ANTB INC INC QUAL/SEMI KATHY 1 STEP HEPATITIS 74123 YAZMIN ARCE B CORE 4 [facility] ANTIBODY INC INC HBCAB TOTAL HEPATITIS 19020 YAZMIN ARCE B SURF 4 [facility] [place] [address] YAZMIN ARCE HEPATITIS 4 [facility] B INC INC SURFACE ANTIGEN RADIOLOGI 98216 YAZMIN ARCE C EXAM 4 [facility] KNEE INC INC COMPLETE 4/MORE VIEWS GENERAL 56912 YAZMIN ARCE HEALTH 4 [facility] [place] [address] YAZMIN ARCE THYROXINE 4 [facility] TOTAL INC INC DUP-SCAN 25629 YAZMIN ARCE XTR VEINS 4 [facility] COMPLETE INC INC BILATERAL STUDY FIBRIN 92784 YAZMIN ARCE DGRADJ 4 [facility] PRODUCTS INC INC D-DIMER QUAL/SEMI KATHY HEMOGLOBI 01571 Y[facility]MIN ARCE N 4 [facility] GLYCOSYLA INC INC SHADY A1C URNLS DIP 65453 YAZMIN ARCE 4 [facility] STICK/TAB INC INC LET REAGENT AUTO MICROSCOP Y BLOOD 70431 YAZMIN ARCE COUNT 4 [facility] COMPLETE INC INC AUTO&AUTO DIFRNTL WBC RADIOLOGI 83948 YAZMIN ARCE C EXAM 4 [facility] CHEST 2 INC INC VIEWS FRONTAL&L ATERAL THERAPEUT 12205 YAZMIN YAZMIN IC 4 [facility] PROPHYLAC INC INC TIC/DX INJECTION SUBQ/[place] [address] [facility] THYROID 4 Y Y STIMULATI [facility] NG HORMONE TSH COMPREHEN 17625 [facility] SIVE 4 Y Y METABOLIC [facility] PANEL CYANOCOBA 94695 [facility] CARISA 4 Y Y VITAMIN [facility] B-12 25 04695 [facility] HYDROXY 4 Y Y INCLUDES HOSPITAL HOSPITAL FRACTIONS IF PERFORMED BLOOD 30863 [facility] COUNT 4 Y Y COMPLETE [facility] AUTOMATED HEMOGLOBI 75113 [facility] N 4 Y Y GLYCOSYLA [facility] SHADY A1C LIPID 67827 [facility] PANEL 4 Y Y HOSPITAL HOSPITAL Encounters Encounter Start End Date Code Location Performer Type Date OFFICE 17161 DONNA FARLEY OUTPATIEN 7 7 Elmira OLVERA MD,[facility] 25 MINUTES HOSPITAL YAZMIN - 7 7 [facility] OUTPATIEN [facility] YAZMIN - 7 7 [facility] OUTPATIEN INC T OFFICE 64619 DONNA ARNDT OUTPATIEN 7 7 BLUE OLVERA VISIT ,PSC 25 MINUTES OFFICE 40506 [facility] OUTPATIEN 7 7 PHYSICIAN T VISIT S GROUP 10 MINUTES HOSPITAL YAZMIN - 7 7 [facility] OUTPATIEN INC T [facility]OSP[facility] YAZMIN - 7 7 [facility] OUTPATIEN INC T OFFICE 78833 [facility] STONE OUTPATIEN 7 7 PHYSICIAN T VISIT S GROUP 25 MINUTES EMERGENCY 08219 ANDRA FELIX DEPT 7 7 PHYSICIAN VISIT S, [facility] HIGH SEVERITY& THREAT FUNJ EMERGENCY 00939 YAZMIN 7 7 [facility] DEPARTMEN INC T VISIT HIGH/URGE NT SEVERITY OFFICE 21362 DONNA ARNDT OUTPATIEN 6 6 BLUE OLVERA VISIT ,[facility] 25 MINUTES HOSPITAL YAZMIN - 6 6 [facility] OUTPATIEN INC T OFFICE 42617 [facility] STONE LALITA OUTPATIEN 6 6 PHYSICIAN T VISIT S GROUP 25 MINUTES HOSPITAL YAZMIN - 6 6 [facility] OUTPATIEN INC T OFFICE 01396 [facility] CHILO OUTPATIEN 6 6 PHYSICIAN JUHI T VISIT S GROUP 15 MINUTES HOSPITAL YAZMIN - 6 6 [facility] OUTPATIEN INC T OFFICE 07285 DONNA FARLEY OUTPATIEN 6 6 SAMI OLVERA MD,[facility] MINUTES OFFICE 86181 [facility] CHILO OUTPATIEN 6 6 PHYSICIAN JUHI T VISIT S GROUP 15 MINUTES OFFICE 16370 [facility] OUTPATIEN 6 6 PHYSICIAN JAM T VISIT S GROUP 15 MINUTES HOSPITAL YAZMIN - 6 6 [facility] OUTPATIEN INC T OFFICE 81148 [facility] OUTPATIEN 6 6 PHYSICIAN JUHI T VISIT S GROUP 15 MINUTES HOSPITAL YAZMIN - 6 6 [facility] OUTPATIEN INC T OFFICE 78815 [facility] OUTPATIEN 6 6 PHYSICIAN JUHI T VISIT S GROUP 10 MINUTES HOSPITAL YAZMIN - 6 6 [facility] OUTPATIEN INC T [facility]OSP[facility] YAZMIN - 6 6 [facility] OUTPATIEN INC T OFFICE 85500 [facility] CHILO OUTPATIEN 6 6 PHYSICIAN JUHI T VISIT S GROUP 10 MINUTES HOSPITAL YAZMIN - 5 5 [facility] OUTPATIEN INC T OFFICE 00221 [facility] OUTPATI[facility] 5 5 NANCY SANCHEZ [facility] 45 MINUTES [facility] YAZMIN - 5 5 [facility] OUTPATIEN INC T [facility]OSP[facility] YAZMIN - 5 5 [facility] OUTPATIEN INC T OFFICE 76824 [facility] 5 5 PHYSICIAN JUHI T VISIT S GROUP 15 MINUTES HOSPITAL YAZMIN - 5 5 [facility] OUTPATIEN INC T EMERGENCY 12598 YAZMIN 5 5 [facility] DEPARTMEN INC T VISIT HIGH/URGE NT SEVERITY [facility]OSPITAL Y[facility] - 5 5 [facility] OUTPATIEN INC T OFFICE 34708 [facility] OUTPATIEN 5 5 PHYSICIAN JAM T VISIT S GROUP 15 MINUTES HOSPITAL YAZMIN - 5 5 [facility] OUTPATIEN INC T OFFICE 04034 Y[facility]MIN OUTPATIEN 5 5 [facility] T VISIT INC 10 MINUTES [facility]OSPITAL YAZMIN - 5 5 [facility] OUTPATIEN INC T [facility] YAZMIN - 5 5 [facility] OUTPATIEN INC T OFFICE 54578 [facility] OUTPATIEN 5 5 PHYSICIAN JAM T VISIT S GROUP 10 MINUTES HOSPITAL YAZMIN - 5 5 [facility] OUTPATIEN INC [facility] Y[facility]MIN - 5 5 [facility] OUTPATIEN INC [facility] YAZMIN - 5 5 [facility] OUTPATIEN INC T OFFICE 09494 MONISHA BUX BUX ANJ OUTPATIEN 5 5 MD T VISIT 10 MINUTES HOSPITAL YAZMIN - 5 5 [facility] OUTPATIEN INC T OFFICE 94974 [facility] OUTPATIEN 5 5 PHYSICIAN JUHI T VISIT S GROUP 15 MINUTES OFFICE 09211 [facility] OUTPATIEN 5 5 PHYSICIAN JUHI T VISIT S GROUP 15 MINUTES OFFICE 84925 MONISHA GARCIAX BUX ANJ OUTPATIEN 5 5 MD T [facility] 30 MINUTES [facility] YAZMIN - 5 5 [facility] OUTPATIEN INC [facility] YAZMIN - 5 5 [facility] OUTPATIEN INC T OFFICE 87859 [facility]O OUTPATIEN 5 5 PHYSICIAN JUHI T VISIT S GROUP 10 MINUTES OFFICE 12800 [facility] OUTPATIEN 5 5 PHYSICIAN JAM T VISIT S GROUP 15 MINUTES HOSPITAL YAZMIN - 5 5 [facility] OUTPATIEN INC T OFFICE 27577 [facility] KASSI TOD OUTPATIEN 5 5 PHYSICIAN T VISIT S GROUP 15 MINUTES PERIODIC 16312 [facility] PREVENTIV 5 5 PHYSICIAN JUHI E MED EST S GROUP PATIENT 40-64YRS OFFICE 80079 [facility]ILO OUTPATIEN 5 5 PHYSICIAN JUHI T VISIT S GROUP 15 MINUTES HOSPITAL YAZMIN - 5 5 [facility] OUTPATIEN INC T OFFICE 92292 [facility] KASSI TOD CONSULTAT 4 4 PHYSICIAN ION S GROUP NEW/ESTAB PATIENT 40 MIN OFFICE 10197 [facility] OUTPATIEN 4 4 PHYSICIAN JUHI T VISIT S GROUP 10 MINUTES OFFICE 45348 [facility] OUTPATIEN 4 4 PHYSICIAN JUHI T VISIT S GROUP 15 MINUTES EMERGENCY 13085 [facility] 4 4 [facility] DEPART[facility] EMERGENCY T VISIT PHYSI HIGH/URGE NT SEVERITY [facility]OSPITAL Y[facility] - 4 4 [facility] OUTPATIEN [facility] T OFFICE 30292 [facility] OUTPATIEN 4 4 PHYSICIAN JAM T NEW 30 S GROUP MINUTES HOSPITAL YAZMIN - 4 4 [facility] OUTPATIEN [facility] T OFFICE 90179 [facility] OUTPATIEN 4 4 PHYSICIAN JUHI T VISIT S GROUP 15 MINUTES HOSPITAL YAZMIN - 4 4 [facility] OUTPATIEN INC T EMERGENCY 24164 [facility] 4 [address] [facility] LOW/MODER SEVERITY EMERGENCY 82576 [facility] 4 4 [facility] EMERGENCY T VISIT PHYSI PHYSI HIGH/URGE NT SEVERITY [facility]OSPITAL YAZMIN - 4 4 [facility] OUTPATIEN INC [facility] - 4 4 [facility] T OFFICE 00838 [facility] OUT[facility] 4 4 NURSE GÉNESIS T NEW 30 PRACTITIO MINUTES NER GR
--- OUTSIDE RECORDS SUMMARY | 2017-03-04 10:45 | External Medical Summary Rpt ---
Author Author , VERONICA Mccullough VERONICA Address Unknown Phone [email or web address] Care Team Providers Care Manager Of Program Name Role Phone [employer] Unavailable Unavailable [...] MD HARPEL PHILOMENA, HARPEL Unavailable Unavailable [facility] Unavailable Unavailable INC, [facility] Unavailable Unavailable HOSPITAL P, [facility], Unavailable Unavailable [facility] FELIX, FELIX Unavailable Unavailable [facility], [facility] MONISHA WOODS MD, MONISHA [...] [facility] Un[facility] Un[facility], [facility] MAKENNA SHE, Unavailable Unavailable MAKNENA SHE STONE, STONE Unavailable Unavailable [facility] LALITA, STONE LALITA Unavailable Unavailable [facility] Unavailable [facility], Unavailable Unavailable [facility] Purpose Continuity of Care Document - 11-18-2013 through 2016 Problems Code Diagnosis DOS Provider Status R0602 SHORTNESS 01-20-2017 [facility] [facility] M4726 OTH 12-20-2016 DONNA SPONDYLOSIS MD MAY,PSC W/RADICULOP ATHY LUMBAR REGION [id number] LONG-TERM 12-20-2016 DONNA CURRENT USE MAY OF OPIATE ,PSC ANALGESIC M1712 UNILATERAL 11-28-2016 [facility] PRIMARY [facility] OSTEOARTHRI GROUP TIS LEFT KNEE K219 GASTRO-ESOP 11-21-2016 [facility] H REFLUX [facility] DISEASE INC WITHOUT ESOPHAGITIS R1012 LEFT UPPER 11-21-2016 [facility] R12 HEARTBURN 11-21-2016 [facility] M21515 OTHER 11-15-2016 [facility] SPECIFIED [facility] ARTHRITIS INC LEFT SHOULDER M7542 IMPINGEMENT 11-15-2016 [facility] SYNDROME [facility] OF LEFT INC SHOULDER M170 BILATERAL 11-13-2016 [facility] PRIMARY [facility] OSTEOARTHRI GROUP TIS OF KNEE [id number] PRIMARY 11-13-2016 [facility] OSTEOARTHRI PHYSICIANS TIS GROUP UNSPECIFIED SHOULDER M129 ARTHROPATHY 11-07-2016 [facility] PHYSICIANS UNSPECIFIED GROUP R69 ILLNESS 10-28-2016 [facility] UNSPECIFIED TRANSPORTAT ION SER Q88669 PRIMARY 10-24-2016 [place] OSTEOARTHRI MEDICAL TIS LEFT IMAGING ASS SHOULDER J21839 PAIN IN 10-24-2016 [place] LEFT MEDICAL SHOULDER IMAGING ASS A084 VIRAL 10-08-2016 [facility] P UNSPECIFIED K529 NONINFECTIV 10-08-2016 [facility], GASTROENTER PLL[facility] ITIS & COLITIS UNS K5790 DIVERTICULO 10-08-2016 [facility] SNYDER PART PHYSICIANS, UNS W/O PLLC PERF/ABSC W/O BLEED K6389 OTHER 10-08-2016 [place] SPECIFIED MEDICAL DISEASES OF IMAGING ASS INTESTINE R0789 OTHER CHEST 10-08-2016 [facility] PAIN [facility] R1084 GENERALIZED 10-08-2016 [facility] ABDOMINAL [facility]ICAL PAIN [facility]ING [facility] R1110 VOMITING 10-08-2016 [facility] UNSPECIFIED [facility]ICAL IM[facility]ING ASS R911 SOLITARY 06-07-2016 [facility] PULMONARY [facility] NODULE INC R918 OTHER 06-07-2016 [place] NONSPECIFIC MEDICAL ABNORMAL IMAGING ASS FINDING OF LUNG FIELD J40 BRONCHITIS 05-27-2016 [facility] NOT PHYSICIANS SPECIFIED GROUP ACUTE OR CHRONIC M5416 RADICULOPAT 04-30-[address] [facility] Z1231 ENCOUNTER 04-23-2016 [place] SCREENING MEDICAL MAMMO MALIG IMAGING ASS NEOPLASM BREAST R05 COUGH 04-09-2016 [facility] M545 LOW BACK 04-05-2016 THOM[facility]ON PAIN MD MAY,[facility] M32891 PAIN IN 03-22-2016 [facility] RIGHT KNEE PHYSICIANS GROUP C16740 PAIN IN 03-22-2016 [facility] LEFT KNEE [facility]ICAL [facility]ING [facility] J189 PNEUMONIA 12-04-2015 [facility] UNSPECIFIED [facility] ORGANISM INC R079 CHEST PAIN 12-04-2015 [facility] UNSPECIFIED [facility]ICAL IMAGING ASS K828 OTHER 06-27-2015 [place] SPECIFIED MEDICAL DISEASES OF IMAGING ASS GALLBLADDER N854 MALPOSITION 06-27-2015 [place] OF UTERUS MEDICAL IMAGING ASS R102 PELVIC AND 06-27-2015 [facility] PERINEAL [facility]ICAL PAIN [facility]ING ASS Z1212 ENCOUNTER 06-20-2015 SHRAVAN CRUZ MD MALIGNANT NEOPLASM RECTUM N926 IRREGULAR 06-14-2015 [facility] MENSTRUATIO [facility] N IMAGING ASS UNSPECIFIED R197 DIARRHEA 06-12-2015 [facility] UNSPECIFIED PHYSICIANS GROUP Z720 TOBACCO USE 06-08-2015 [facility] INC 7202 SACROILIITI 04-13-2015 [facility] S NOT [facility] ELSEWHERE INC CLASSIFIED 84735 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[facility] 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[facility] OSACRAL INC INTERVERTEB RAL DISC V571 OTHER 04-13-2015 [facility] PHYSICAL [facility] THERAPY INC 25561 PRIMARY 04-11-2015 [facility] LOCALIZED PHYSICIANS OSTEOARTHRO GROUP SIS LOWER LEG 8248 UNSPECIFIED 04-11-2015 [facility] CLOSED PHYSICIANS FRACTURE OF GROUP ANKLE V5416 AFTERCARE 04-11-2015 [facility] HEALING [facility] TRAUMATIC INC FRACTURE LOWER LEG V5419 AFTERCARE 04-11-2015 [facility] TRAUMATIC IMAGING ASS FRACTURE OTHER BONE 7213 LUMBOSACRAL 02-27-2015 [facility] SPONDYLOSIS IMAGING ASS WITHOUT MYELOPATHY 13716 DISPLCMT 02-27-2015 [place] LUMBAR MEDICAL INTERVERT IMAGING ASS DISC W/O MYELOPATHY 77424 SPINAL STEN 02-27-2015 [place] LUMB REG MEDICAL W/O IMAGING ASS NEUROGENIC CLAUDICATIO N 7243 SCIATICA 02-27-2015 [facility] INC 7265 ENTHESOPATH 11-14-2014 MONISHA Marsh OF HIP MD REGION 19956 11-03-2014 [facility] TRANSPORTAT ION SER 8240 CLOSED 11-03-2014 [facility] FRACTURE OF TECHNOLOGIE MEDIAL S INC MALLEOLUS 8242 CLOSED 11-03-2014 [facility] FRACTURE OF PHYSICIANS LATERAL GROUP MALLEOLUS 49187 PAIN IN 10-30-2014 [place] JOINT, MEDICAL ANKLE AND IMAGING ASS FOOT 7295 PAIN IN 10-30-2014 [place] SOFT MEDICAL TISSUES OF IMAGING ASS LIMB 15417 CLOSED 10-30-2014 [facility] FRACTURE OF TECHNOLOGIE S INC UNSPECIFIED PART OF FIBULA 490 BRONCHITIS 10-25-2014 [facility] NOT PHYSICIANS SPECIFIED GROUP ACUTE OR CHRONIC 7823 EDEMA 10-13-2014 [facility] 63786 PAIN IN 09-18-2014 [facility] JOINT [facility] PELVIC INC REGION AND THIGH 88714 PAIN IN 09-18-2014 [facility] JOINT, [facility] LOWER LEG INC 25218 OTHER ACUTE 09-09-2014 [facility] PAIN PHYSICIANS GROUP 47078 OTHER 09-09-2014 [facility] KERATOSIS 15499 OSTEOARTHRO 08-29-2014 [facility] S UNSPEC PHYSICIANS WHETHER GROUP GEN/LOC UNSPEC SITE 7242 LUMBAGO 08-29-2014 [facility] 84285 OSTEOARTHRO 08-17-2014 [facility] SIS UNSPEC [facility] WHETHER INC GEN/LOC LOWER LEG 35562 UNSPECIFIED 08-17-2014 [facility] PHYSICIANS ARTHROPATHY GROUP , LOWER LEG 28512 GENERALIZED 08-17-2014 [facility] PAIN [facility] INC 9233 CONTUSION 08-17-2014 [facility] OF FINGER PHYSICIANS GROUP 9599 INJURY 08-17-2014 [facility] OTHER AND [facility] UNSPECIFIED INC UNSPECIFIED SITE 59281 DIVERTICULO 08-10-2014 [facility] SIS OF PHYSICIANS COLON GROUP 5641 IRRITABLE 08-10-2014 [facility] BOWEL PHYSICIANS SYNDROME GROUP 80112 ABDOMINAL 08-10-2014 [facility] PAIN OTHER PHYSICIANS SPECIFIED GROUP SITE V7651 SPECIAL 08-10-2014 [facility] SCREENING PHYSICIANS FOR GROUP MALIGNANT NEOPLASMS COLON V7231 ROUTINE 08-04-2014 [facility] AL EXAMINATION 20952 OTHER 07-28-2014 [facility] CHRONIC PHYSICIANS PAIN GROUP 5699 UNSPECIFIED 05-30-2014 [facility] DISORDER PHYSICIANS OF GROUP INTESTINE 7962 ELEVATED BP 05-30-2014 [facility] READING PHYSICIANS WITHOUT DX GROUP HYPERTENSIO N 8469 UNSPECIFIED 05-26-2014 [facility] S[facility] N EMERGENCY SACROILIAC PHYSI REGION SPRAIN&STRA IN E9288 OTHER 05-26-2014 [facility] ACCIDENT N EMERGENCY PHYSI 14161 OTHER 03-24-2014 [facility] MALAISE AND [facility] FATIGUE INC 49937 ABDOMINAL 03-24-2014 [facility] PAIN RIGHT [facility] UPPER INC QUADRANT V7612 OTHER 03-24-2014 [facility] SCREENING [facility] MAMMOGRAM INC 61911 ESOPHAGEAL 03-15-2014 [facility] REFLUX PHYSICIANS GROUP 70143 SWELLING OF 03-01-2014 [facility] LIMB [facility] INC 462 ACUTE 01-24-2014 [facility] PHARYNGITIS N EMERGENCY PHYSI 66144 ACUTE 01-24-2014 [facility] LARYNGITIS, N EMERGENCY WITHOUT PHYSI MENTION OF OBSTRUCTIO 2689 UNSPECIFIED 11-23-2013 [facility] DEFICIENCY V5869 LONG-TERM 11-23-2013 [place] (CURRENT) [facility] USE OF OTHER MEDICATIONS Medications Na ND [...] 07 08 20 10 00 CL Ac ND 25 -0 -0 .0 00 IN ti [...] 60 5- 4- 00 00 IC ve ND 00 20 20 43 ED 10 17 [...] 06 07 30 10 00 CL Ac ND 25 -2 -2 .0 00 IN ti [...] Procedure DOS Code Location Performer Comment RADIOLOGI 87725 [facility] C EXAM 7 MEDICAL CHEST 2 IMAGING VIEWS ASS FRONTAL&L ATERAL DRUG TEST 12777 DONNA FARLEY PRSMV 7 SIOBHAN OLVERA MD,PSC CHEMISTRY ANALYZERS ARTHROCEN 47620 [facility] TESIS 7 PHYSICIAN ASPIR&/IN S GROUP J MAJOR JT/BURSA W/O US HYALURONA J7321 [facility] N/DERIV 7 PHYSICIAN HYALGAN/S S GROUP UPARTZ IA INJ PER DOSE RADEX 13728 [facility] UPPER GI 7 [facility] W/WO INC INC GLUCAGON/ DELAY IMAGES W/KUB RADEX 41055 OSMANJENNIFER AYDEN UPPER GI 7 MEDICAL W/WO IMAGING GLUCAGON/ ASS DELAY IMGES W/O KUB OCCUPATIO 87290 [facility] NAL 7 [facility] THERAPY INC INC EVAL LOW COMPLEX 30 MINS HYALURONA J7321 [facility] N/DERIV 7 PHYSICIAN HYALGAN/S S GROUP UPARTZ IA INJ PER DOSE HYALURONA J7321 [facility] N/DERIV 7 PHYSICIAN HYALGAN/S S GROUP UPARTZ IA INJ PER DOSE DRUG TEST 58284 DONNA ARNDT PRSMV 7 BLUE OLVERA MD,[facility] CHEMISTRY ANALYZERS NONEMER A0120 [facility] FEDERATED TRNSPRT: 7 [facility] TRANSPORT TRANSPORT [facility] SER ATION SER AREA/OTH SYS ARTHROCEN 56134 [facility] TESIS 7 PHYSICIAN ASPIR&/IN S GROUP J MAJOR JT/BURSA W/O US INJ J0702 [facility] BETAMETHA 7 PHYSICIAN SONE S GROUP ACETATE & PHOSPHATE 3 MG RADEX 96953 [facility] ARCE SHOULDER 7 [facility] COMPLETE INC INC MINIMUM 2 VIEWS ECG 67592 [facility] [place] ROUTINE 7 [facility] W/LEAST P 12 LDS I&R ONLY RHYTHM 48240 [facility] ARCE ECG 1-3 7 [facility] LEADS INC INC TRACING ONLY W/O I&R RADIOLOGI 35413 [facility] ARCE C EXAM 7 [facility] CHEST 2 INC INC VIEWS FRONTAL&[place] [address] [facility] ARCE TROPONIN 7 [facility] QUANTITAT INC INC UZMA BLOOD 48146 [facility] AR[facility] COUNT 7 [facility] COMPLETE INC INC AUTO&AUTO DIFRNTL WBC CREATINE 72552 [facility] AR[facility] KINASE 7 [facility] TOTAL INC INC ECG 98904 [facility] AR[facility] ROUTINE 7 [facility] ECG INC INC W/LEAST 12 LDS TRCG ONLY W/O I&[place] [address] [facility] ARCE ABDOMEN & 7 [facility] PELVIS [place] [address] [facility] ARCE INFUSION 7 [facility] THERAPY/P INC INC ROPHYLAXI S /DX 1ST TO 1 HR THERAPEUT 19963 [facility] IC 7 [facility] INJECTION INC INC IV PUSH EACH NEW DRUG COMPREHEN 04099 [facility] SIVE 7 [facility] METABOLIC INC INC PANEL CREATINE 26721 [facility] AR[facility] KINASE MB 7 [facility] FRACTION INC INC ONLY DRUG TEST 82556 DONNA ARNDT PRSMV 7 BLUE OLVERA MD,PSC CHEMISTRY ANALYZERS NONEMERG A0120 FEDERATED FEDERATED TRNSPRT: 7 [facility]I-BUS TRANSPORT TRANSPORT MTN ATION SER ATION SER AREA/OTH SYS NONEMERG A0120 FED[facility] FEDERATED TRNSPRT: 6 [facility]I-BUS TRANSPORT TRANSPORT MTN ATION SER ATION SER AREA/OTH SYS DRUG TEST G0479 DONNA ARNDT 6 BLUE OLVERA PRESUMP;I ,PSC NSTRUMENT ED CHEMISTRY ANLYZER CT THORAX 72991 [facility] YAZMIN W/O 6 [facility] CONTRAST INC INC MATERIAL THERAPEUT 23239 [facility] STONE LALITA IC 6 PHYSICIAN PROPHYLAC S GROUP TIC/DX INJECTION SUBQ/IM INJECTION J1040 [facility] STONE LALITA 6 PHYSICIAN METHYLPRE S GROUP DNISOLONE ACETATE 80 MG INJECTION J0696 [facility] STONE LALITA 6 PHYSICIAN CEFTRIAXO S GROUP NE SODIUM PER 250 MG NJX 45725 DONNA FARLEY ANES&/STR 6 SAMI OLVERA W/LEONARDO SANCHEZ,PSC TFRML EDRL LMBR/SAC 1 LVL NJX 01539 DONNA FARLEY ANES&/STR 6 SAMI OLVERA W/LEONARDO SANCHEZ,[facility] TFRML EDRL LMBR/SAC EA LV DRUG TEST G0479 DONNA FARLEY 6 SAMI OLVERA;Svetlana SANCHEZ,[facility] NSTRUMENT ED CHEMISTRY ANLYZER NONEMERG A0120 FEDERATED FEDERATED TRNSPRT: 6 MINI-BUS TRANSPORT TRANSPORT [facility] SYS SCREENING G0202 [facility] ARCE 6 [facility] MAMMOGRAP INC INC HY PADMA INCL CAD WHEN PERFORMD COMPUTER- 69386 [facility] ARCE AIDED 6 [facility] DETECTION INC INC SCREENING MAMMOGRAP HY RADIOLOGI 89667 [facility] ARCE C EXAM 6 [facility] CHEST 2 INC INC VIEWS FRONTAL&L ATERAL NONEMERG A0120 [facility] FEDERATED TRNSPRT: 6 MINI-BUS TRANSPORT TRANSPORT [facility] SYS RADIOLOGI 74293 [facility] ALL C EXAM 6 MEDICAL KNEE IMAGING COMPLETE ASS 4/MORE VIEWS INJECTION J1885 [facility] CHILO 6 PHYSICIAN JUHI KETOROLAC S GROUP TROMETHAM INE PER 15 MG THERAPEUT 60886 [facility] CH[facility] IC 6 PHYSICIAN JUHI PROPHYLAC S GROUP TIC/DX INJECTION SUBQ/IM CV STRS 36031 [facility] KARISHMA MARCOS TST 6 PHYSICIAN XERS&/OR S GROUP RX CONT ECG W/O I&R CT THORAX 92915 [facility] AR[facility] W/O 6 [facility] CONTRAST INC INC MATERIAL RADIOLOGI 19361 [facility] ALL C 6 MEDICAL EXAMINATI IMAGING ON CHEST ASS SINGLE VIEW FRONTAL RADIOLOGI 70476 [facility] C EXAM 6 [facility] CHEST 2 INC INC VIEWS FRONTAL&L ATERAL RADIOLOGI 82370 [facility] ARCE C EXAM 6 [facility] CHEST 2 INC INC VIEWS FRONTAL&L ATERAL THERAPEUT 90237 [facility] CH[facility]O IC 6 PHYSICIAN JUHI PROPHYLAC S GROUP TIC/DX INJECTION SUBQ/IM INJECTION J0696 [facility] CHILO 6 PHYSICIAN JUHI CEFTRIAXO S GROUP NE SODIUM [place] [address] [place] [address] [facility] CALHOUNON ABDOMEN & 5 [facility] PELVIS INC INC W/CONTRAS T MATERIAL LOCM Q9967 [facility] ARCE 300-399 5 [facility] MG/ML INC INC IODINE CONCENTRA TION PER ML COLLECTIO 63962 [facility]IMN CALHOUNON N VENOUS 5 [facility] BLOOD INC INC VENIPUNCT URE URINLS 90819 SH[facility] CRUZ DIP 5 NANCY SANCHEZ PHILOMENA STICK/TAB LET REAGNT NON-AUTO MICRSCPY CARCINOEM 13044 [facility] ARCE BRYONIC 5 [facility] [address] [facility] ARCE UREA 5 [facility] NITROGEN INC INC QUANTITAT UZMA IMMUNOASS 81763 [facility] ARCE AY TUMOR 5 [facility] ANTIGEN INC INC QUANTITAT UZMA CREATININ 28498 [facility] E BLOOD 5 [facility] INC INC BLOOD 78579 SHRAVAN CRUZ OCCULT 5 NANCY QUACH PEROXIDAS E ACTV QUAL FECES 1-[place] [address] [facility] ARCE TRANSVAGI 5 [facility] [place] [place] [address] [facility] AR[facility] LIPASE 5 [facility] INC INC COMPREHEN 22723 [facility] SIVE 5 [facility] METABOLIC INC INC PANEL BLOOD 34592 [facility] COUNT 5 [facility] COMPLETE INC INC AUTO&AUTO DIFRNTL WBC URNLS DIP 46287 [facility] ARCE 5 [facility] STICK/TAB INC INC [place] [address] [facility] AR[facility] AMYLASE 5 [facility] INC INC INJECTION J2405 [facility] ARCE 5 [facility] ONDANSETR INC INC ON HCL PER 1 [place] [address] [facility] ARCE INFUSION 5 [facility] THERAPY/P INC INC ROPHYLAXI S /DX 1ST TO 1 HR THERAPEUT 05501 [facility] IC 5 [facility] INJECTION INC INC IV PUSH EACH NEW DRUG APPL 04743 [facility] AR[facility] MODALITY 5 [facility] 1/> AREAS INC INC ELEC STIMJ EA 15 MIN INJECTION J1030 [facility] ARCE 5 [facility] METHYLPRE INC INC DNISOLONE ACETATE 40 [place] IN[place] [address] DEENA JOSEPHMARK JULIANNE JOINT 5 MD PEGGY, ARTHRGRPH PSC Y&/ANES/S TEROID W/DICK AUTOLOGOU G0460 [facility] ARCE S 5 [facility] PLATELET- INC INC RICH PLASMA RADEX 64675 [facility] ANKLE 5 [facility] COMPLETE INC INC MINIMUM 3 VIEWS RADEX 26163 [facility] ALL ANKLE 5 MEDICAL COMPLETE IMAGING MINIMUM 3 ASS VIEWS MRI 49554 [facility] ARCE SPINAL 5 [facility] CANAL INC INC LUMBAR W/O CONTRAST MATERIAL 3D 44235 [facility] RENDERING 5 MEDICAL JUDY W/INTERP IMAGING & ASS POSTPROCE SS SUPERVISI ON RADEX 26667 [facility] ANKLE 5 [facility] COMPLETE INC INC MINIMUM 3 VIEWS RADEX 31179 [facility] YAZMIN ANKLE 5 [facility] COMPLETE INC INC MINIMUM 3 VIEWS RADEX 58934 [facility] ARCE ANKLE 5 [facility] COMPLETE INC INC MINIMUM 3 VIEWS CLTX DSTL 96249 [facility] FIBULAR 5 PHYSICIAN SHARLENE FX LAT S GROUP MALLS W/O MANJ NONEMERG A0120 [facility]ERATED FEDERATED TRNSPRT: 5 MINI-BUS TRANSPORT TRANSPORT MTN ATION SER ATION SER AREA/OTH SYS WALKING L4360 [facility] BOOT 5 TECHNOLOG TECHNOLOG PNEUMATC IES INC IES INC &/ VACUUM PREFAB CUSTM FIT RADEX 90600 [place] [facility] FOOT 5 MEDICAL JUDY COMPLETE IMAGING MINIMUM 3 ASS VIEWS RADEX 69363 [place] [facility] ANKLE 5 MEDICAL JUDY COMPLETE IMAGING MINIMUM 3 ASS VIEWS ANKLE L4350 [facility] CONTROL 5 TECHNOLOG TECHNOLOG ORTHOSIS IES INC IES INC STIRRUP STYL RIGID PREFAB FLUOR 46399 [facility]AD[facility] BUX BUX ANJ NEEDLE/CA 5 MD BIGGS SPINE/PAR ASPINAL DX/THER ADDON INJECTION J1030 [facility] ARCE 5 [facility] METHYLPRE INC INC DNISOLONE ACETATE 40 MG LOCM Q9967 [facility] ARCE 300-399 5 [facility] MG/ML INC INC IODINE CONCENTRA TION PER ML ARTHROCEN 15378 [facility] AR[facility] TESIS 5 [facility] ASPIR&/IN INC INC J MAJOR JT/BUR[place] [address] [facility] BUX BUX ANJ JOINT 5 ARTHRGRP Y&/ANES/S TEROID W/DICK INJ PROC G0260 [facility] SI 5 [facility] JNT;ANES INC INC STEROID&/ TX AGT&ARTHR OGRPH THERAPEUT 50364 [facility] ARCE IC PX 1/> 5 [facility] AREAS INC INC EACH 15 MIN EXERCISES APPLICATI 97568 [facility] AR[facility] ON 5 [facility] MODALITY INC INC 1/> AREAS HOT/COLD PACKS APPL 00315 [facility] ARCE MODALITY 5 [facility] 1/> AREAS INC INC ULTRASOUN D EA 15 MIN MANUAL 69329 [facility] AR[facility] THERAPY 5 [facility] TQS 1/> INC INC REGIONS EACH 15 MINUTES APPL 87902 [facility] AR[facility] MODALITY 5 [facility] 1/> AREAS INC INC ELEC STIMJ UNATTENDE D THERAPEUT 37770 [facility] ARCE IC PX 1/> 5 [facility] AREAS INC INC EACH 15 MIN EXERCISES PHYSICAL 14813 [facility] AR[facility] THERAPY 5 [facility] [place] [address] [facility]G [facility] ER [facility] PATHOLOGY GROSS&JUHI ROSCOPIC EXAM EXC B9 98453 [facility] LESION 5 PHYSICIAN JUHI MRGN XCP S GROUP SK TG T/A/L 1.1-2.0 CM RADIOLOGI 92475 [facility] ARCE C EXAM 5 [facility] KNEE INC INC COMPLETE 4/MORE VIEWS RADEX 64417 [facility] ARCE FINGR 5 [facility] MINIMUM 2 INC INC VIEWS INJECTION J1040 [facility] CHILO 5 PHYSICIAN JUHI METHYLPRE S GROUP DNISOLONE ACETATE 80 MG INJECTION J1885 [facility] CHILO 5 PHYSICIAN JUHI KETOROLAC S GROUP TROMETHAM INE PER 15 MG THERAPEUT 41953 [facility] CH[facility] IC 5 PHYSICIAN JUHI PROPHYLAC S GROUP TIC/DX INJECTION SUBQ/IM CYTP C/V 20625 [facility] AUTO THIN [facility] ER JR IVY LYR PREPJ SCR MNL RESCR PHYS SIGMOIDOS 91408 [facility] KASSI TOD COPY FLX 5 PHYSICIAN DX S GROUP W/COLLJ SPEC BR/WA IF PFRMD ANES 60021 [facility] 5 ANESTH SHE INTESTINE OF THE BLUE ENDOSCOPY DISTAL DUODENUM BASIC 83582 [facility] ARCE METABOLIC 5 [facility] PANEL INC INC CALCIUM TOTAL BLOOD 85429 [facility] ARCE COUNT 5 [facility] COMPLETE INC INC AUTO&AUTO DIFRNTL WBC THERAPEUT 05690 [facility] CH[facility] IC 4 PHYSICIAN JUHI PROPHYLAC S GROUP TIC/DX INJECTION SUBQ/IM INJECTION J1885 [facility] CHILO 4 PHYSICIAN JUHI KETOROLAC S GROUP TROMETHAM INE PER 15 MG THERAPEUT 79778 [facility] IC 4 PHYSICIAN JUHI PROPHYLAC S GROUP TIC/DX INJECTION SUBQ/IM INJECTION J1100 [facility] CHILO 4 PHYSICIAN JUHI DEXAMETHO S GROUP SONE SODIUM PHOSPHATE 1 MG HYALURONA J7325 [facility] N/DERIV 4 PHYSICIAN SHARLENE SYNVISC/S S GROUP YNVISC-ON E IA INJ 1 MG ARTHROCEN 81975 [facility] PETTESalma TESIS 4 PHYSICIAN SHARLENE ASPIR&/IN S GROUP J MAJOR JT/BUR[place] W/[place] [address] Y[facility] ARCE BLOOD/URI 4 [facility] C ACID INC INC ANTINUCLE 58007 [facility] ARCE AR 4 [facility] ANTIBODIE INC INC S MARIBELL GONADOTRO 19909 Y[facility] ARCE PIN 4 [facility] FOLLICLE [place] [address] Y[facility] ARCE AMYLASE 4 [facility] [place] [place] [address] [facility] AR[facility] ABDOMINAL 4 [facility] REAL INC INC TIME W/IMAGE LIMITED COMPUTER- 12405 YAZMIN ARCE AIDED 4 [facility] DETECTION INC INC SCREENING MAMMOGRAP HY GONADOTRO 18937 YAZMIN ARCE PIN 4 [facility] [place] [address] Y[facility]MIN ARCE LIPASE 4 [facility] INC INC CYANOCOBA 02634 YAZMIN ARCE CARISA 4 [facility] VITAMIN INC INC B-12 HEPATITIS 77181 [facility]MIN ARCE A 4 [facility] ANTIBODY INC INC HAAB RHEUMATOI 85656 YAZMIN Vivar FACTOR 4 [facility] QUANTITAT INC INC UZMA HEPATITIS 62841 YAZMIN ARCE C 4 [facility] ANTIBODY INC INC SCREENING G0202 [facility] ARCE 4 [facility] MAMMOGRAP INC INC HY PADMA INCL CAD WHEN PERFORMD SEDIMENTA 30328 YAZMIN [facility]CE TION RATE 4 [facility] RBC INC INC NON-AUTOM ATED IMMUNOASS 67016 Y[facility]CE AY NFCT 4 [facility] AGT ANTB INC INC QUAL/SEMI KATHY 1 STEP HEPATITIS 56436 Y[facility]CE B CORE 4 [facility] ANTIBODY INC INC HBCAB TOTAL HEPATITIS 38982 YAZMIN [facility]CE B SURF 4 [facility] [address] Y[facility]MIN [facility]CE HEPATITIS 4 [facility] B INC INC SURFACE ANTIGEN RADIOLOGI 11617 Y[facility]MIN [facility] C EXAM 4 [facility] KNEE INC INC COMPLETE 4/MORE VIEWS GENERAL 97926 YAZMIN [facility]CE HEALTH 4 [facility] [place] [address] YAZMIN ARCE THYROXINE 4 [facility] TOTAL INC INC DUP-SCAN 17695 YAZMIN ARCE XTR VEINS 4 [facility] COMPLETE INC INC BILATERAL STUDY FIBRIN 03919 Y[facility]CE DGRADJ 4 [facility] PRODUCTS INC INC D-DIMER QUAL/SEMI KATHY HEMOGLOBI 69587 [facility]CE N 4 [facility] GLYCOSYLA INC INC SHADY A1C URNLS DIP 75725 YAZMIN ARCE 4 [facility] STICK/TAB INC INC LET REAGENT AUTO MICROSCOP Y BLOOD 31807 YAZMIN ARCE COUNT 4 [facility] COMPLETE INC INC AUTO&AUTO DIFRNTL WBC RADIOLOGI 43677 YAZMIN ARCE C EXAM 4 [facility] CHEST 2 INC INC VIEWS FRONTAL&L ATERAL THERAPEUT 81119 YAZMIN YAZMIN IC 4 [facility] PROPHYLAC INC INC TIC/DX INJECTION SUBQ/[place] [address] [facility] THYROID 4 Y Y STIMULATI [facility] NG HORMONE TSH COMPREHEN [address] [facility] SIVE 4 Y Y METABOLIC [facility] PANEL CYANOCOBA 61222 [facility] UNIVERSIT CARISA 4 Y Y VITAMIN [facility] B-12 25 14313 [facility] UNIVERS HYDROXY 4 Y Y INCLUDES HOSPITAL HOSPITAL FRACTIONS IF PERFORMED BLOOD 66441 [facility] UNIVERSIT COUNT 4 Y Y COMPLETE [facility] AUTOMATED HEMOGLOBI 91709 [facility] UNIVERSIT N 4 Y Y GLYCOSYLA [facility] SHADY A1C LIPID [address] [facility] PANEL 4 Y Y HOSPITAL HOSPITAL Encounters Encounter Start End Date Code Location Performer Type Date OFFICE 33518 DONNA FARLEY OUTPATIEN 7 7 [place]ira OLVERA MD,[facility] 25 MINUTES [facility] YAZMIN - 7 7 [facility] OUTPATIEN [facility] YAZMIN - 7 7 [facility] OUTPATIEN INC T OFFICE 85411 DONNA ARNDT OUTPATIEN 7 7 BLUE [facility]A VISIT ,[facility] 25 MINUTES OFFICE [id number] [facility] OUTPATIEN 7 7 PHYSICIAN T VISIT S GROUP 10 MINUTES [facility] - [facility] 7 [facility] - 7 7 [facility] T OFFICE 12329 [facility] OUTPATIEN 7 7 PHYSICIAN T VISIT S GROUP 25 MINUTES EMERGENCY [id number] ANDRA FELIX DEPT 7 7 PHYSICIAN VISIT S, [facility] HIGH SEVERITY& THREAT FUNJ EMERGENCY 36609 [facility] 7 7 [facility] DEPARTMEN INC T VISIT HIGH/URGE NT SEVERITY OFFICE 47796 DONNA ARNDT OUTPATIEN 6 6 BLUE OLVERA VISIT ,[facility] 25 MINUTES [facility] - 6 6 [facility] T OFFICE 14948 [facility] LALITA OUTPATIEN 6 6 PHYSICIAN T VISIT S GROUP 25 MINUTES [facility] - 6 6 [facility] T OFFICE 84788 [facility] OUTPATIEN 6 6 PHYSICIAN JUHI T VISIT S GROUP 15 MINUTES [facility] - 6 6 [facility] T OFFICE 76846 DONNA FARLEY OUTPATIEN 6 6 SAMI OLVERA MD,[facility] MINUTES OFFICE 57703 [facility] OUTPATIEN 6 6 PHYSICIAN JUHI T VISIT S GROUP 15 MINUTES OFFICE 54668 [facility] OUTPATIEN 6 6 PHYSICIAN JAM T VISIT S GROUP 15 MINUTES [facility] - 6 6 [facility] INC T OFFICE 99101 [facility] OUTPATIEN 6 6 PHYSICIAN JUHI T VISIT S GROUP 15 MINUTES [facility] - 6 6 [facility] INC T OFFICE 88822 [facility] OUTPATIEN 6 6 PHYSICIAN JUHI T VISIT S GROUP 10 MINUTES [facility] - 6 6 [facility] T [facility] - 6 6 [facility] INC T OFFICE 87994 [facility] OUTPATIEN 6 6 PHYSICIAN JUHI T VISIT S GROUP 10 MINUTES [facility] - 5 5 [facility] T OFFICE 50219 [facility] CRUZ OUTPATIEN 5 5 [facility]ANCY SANCHE[facility] 45 MINUTES [facility] 5 [facility] T [facility] 5 5 [facility] 37143 [facility] PHYSICIAN JUHI T VISIT S GROUP 15 MINUTES [facility] 5 5 [facility] T EMERGENCY 42166 [facility] 5 5 [facility] DEPARTMEN INC T VISIT HIGH/URGE NT SEVERITY [facility] 5 5 [facility] T OFFICE 53815 [facility] OUTPATIEN 5 5 PHYSICIAN JAM T VISIT S GROUP 15 MINUTES [facility] - 5 5 [facility] T OFFICE 03727 [facility]IEN 5 5 [facility] T VISIT INC 10 MINUTES [facility] 5 5 [facility] 5 5 [facility] T OFFICE 97856 [facility] OUTPATIEN 5 5 PHYSICIAN JAM T VISIT S GROUP 10 MINUTES [facility] - 5 5 [facility] - 5 5 [facility] INC [facility] - 5 5 [facility] INC T OFFICE 92586 MONISHA BUX BUX ANJ OUTPATIEN 5 5 MD T VISIT 10 MINUTES [facility] - 5 5 [facility] T OFFICE 92349 [facility] OUTPATIEN 5 5 PHYSICIAN JUHI T VISIT S GROUP 15 MINUTES OFFICE 14413 [facility] OUTPATIEN 5 5 PHYSICIAN JUHI T VISIT S GROUP 15 MINUTES OFFICE 05917 MONISHA GARCIAX BUX ANJ OUTPATIEN 5 5 MD T [facility]ANNER 30 MINUTES [facility] 5 [facility] 5 5 [facility] T OFFICE 70786 [facility] OUTPATIEN 5 5 PHYSICIAN JUHI T VISIT S GROUP 10 MINUTES OFFICE 94035 [facility] OUTPATIEN 5 5 PHYSICIAN JAM T VISIT S GROUP 15 MINUTES [facility] 5 5 [facility] INC T OFFICE 43292 [facility] KASSI TOD OUTPATIEN 5 5 PHYSICIAN T VISIT S GROUP 15 MINUTES PERIODIC 76889 [facility] PREVENTIV 5 5 PHYSICIAN JUHI E MED EST S GROUP PATIENT 40-64YRS OFFICE 42179 [facility] OUTPATIEN 5 5 PHYSICIAN JUHI T VISIT S GROUP 15 MINUTES [facility] - 5 5 [facility] INC T OFFICE 09480 [facility] KASSI TOD CONSULTAT 4 4 PHYSICIAN ION S GROUP NEW/ESTAB PATIENT 40 MIN OFFICE 76288 [facility] OUTPATIEN 4 4 PHYSICIAN JUHI T VISIT S GROUP 10 MINUTES OFFICE 80375 [facility] OUTPATIEN 4 4 PHYSICIAN JUHI T VISIT S GROUP 15 MINUTES EMERGENCY 64724 [facility] 4 4 [facility] DEPARTMEN EMERGENCY T VISIT PHYSI HIGH/URGE NT SEVERITY [facility] - 4 4 [facility] T OFF[facility] 52696 [facility] OUTPATIEN 4 4 PHYSICIAN JAM T NEW 30 S GROUP MINUTES [facility] 4 4 [facility] T OFFICE 03976 [facility] OUTPATIEN 4 4 PHYSICIAN JUHI T VISIT S GROUP 15 MINUTES [facility] - 4 4 [facility] OUT[facility] INC T EMERGENCY 78779 [facility] 4 4 [facility] LOW/MODER SEVERITY EMERGENCY 68249 [facility] 4 4 [facility] EMERGENCY EMERGENCY T VISIT PHYSI PHYSI HIGH/URGE NT SEVERITY [facility] - 4 4 [facility] - 4 4 [facility] T OFF[facility] 41739 [facility] 4 4 NURSE GÉNESIS T NEW 30 PRACTITIO MINUTES NER GR
--- OUTSIDE RECORDS SUMMARY | 2017-03-04 10:51 | External Medical Summary Rpt ---
Author Author , VERONICA Organization VERONICA Address Unknown Phone [email or web address] Care Team Providers Care Scaffold Setter Name Role Phone [employer] Unavailable Unavailable INC, [employer] Unavailable Unavailable INC, [employer] AFUSEH GÉNESIS, AFUSEH Unavailable Unavailable GÉNESIS DONNA OLVERA, Unavailable Unavailable MD,PSC, DONNA OLVERA MD,PSC BEINEKE, BEINEKE Unavailable Unavailable BEINEKE D, BEINEKE D Unavailable Unavailable BEINEKE BERNADETTE, BEINEKE Unavailable Unavailable BERNADETTE BESSON, BESSON Unavailable Unavailable HENSLEY, HENSLEY Unavailable Unavailable HENSLEY ALL, HENSLEY ALL Unavailable Unavailable BUX ANJ, BUX ANJ Unavailable Unavailable LEONARD, Unavailable Unavailable LEONARD COOK MARCOS, COOK MARCOS Unavailable Unavailable SCOTT, SCOTT Unavailable Unavailable SCOTT JUDY, Unavailable Unavailable SCOTT JUDY DUFF JULIANNE, DUFF JULIANNE Unavailable Unavailable [facility] Unavailable Unavailable TRANSPORTATION SER, [facility] CHILO JUHI, CHLIO Unavailable Unavailable JUHI GANZEL, GANZEL Unavailable Unavailable GANZEL SAMI, GANZEL Unavailable Unavailable SAMI SHRAVAN CRUZ MD, Unavailable Unavailable SHRAVAN CRUZ PHILOMENA, HARPEL Unavailable Unavailable [facility] Unavailable Unavailable INC, [facility] Unavailable Unavailable HOSPITAL P, [facility], Unavailable Unavailable [facility] FLEIX, FELIX Unavailable Unavailable [facility], [facility] MONISHA WOODS MD, MONISHA Unavailable Unavailable PEGGY SANCHEZ [facility]available [facility], [facility] PETTEY, PETTEY Unavailable Unavailable PETTEY JAM, PETTEY Unavailable Unavailable JAM DENNYS HAYNES, Unavailable Unavailable DENNYS HAYNES KASSI TOD, KASSI TOD Unavailable Unavailable SOTINGEANU BERNADETTE, Unavailable Unavailable SOTINGEANU BERNADETTE [facility] Un[facility], [facility] MAKENNA SHE, Unavailable Unavailable MAKENNA SHE STONE, STONE Unavailable Unavailable STONE LALITA, STONE LALITA Unavailable Unavailable [facility], [facility], Unavailable Unavailable [facility] Purpose Continuity of Care Document - 11-18-2013 through 2016 Problems Code Diagnosis DOS Provider Status R0602 SHORTNESS 01-20-2017 [place] [facility] M4726 OTH 12-20-2016 DONNA SPONDYLOSIS MD MAY,PSC W/RADICULOP ATHY LUMBAR REGION H17513 MCC 12-20-2016 DONNA CURRENT USE JULIANA OLVERA OPIATE ,PSC ANALGESIC M1712 UNILATERAL 11-28-2016 [facility] OSTEOARTHRI GROUP TIS LEFT KNEE K219 GASTRO-ESOP 11-21-2016 [facility] H [facility]UX [facility] DISEASE INC WITHOUT ESOPHAGITIS R1012 LEFT UPPER 11-21-2016 [place] [facility] R12 HEARTBURN 11-21-2016 [facility] [id number] OTHER 11-15-2016 [facility] SPECIFIED [facility] ARTHRITIS INC LEFT SHOULDER M7542 IMPINGEMENT 11-15-2016 [facility] SYNDROME [facility] OF LEFT INC SHOULDER M170 BILATERAL 11-13-2016 [facility] OSTEOARTHRI GROUP TIS OF KNEE [id number] PRIMARY 11-13-2016 [facility] OSTEOARTHRI PHYSICIANS TIS GROUP UNSPECIFIED SHOULDER M129 ARTHROPATHY 11-07-2016 [facility] PHYSICIANS UNSPECIFIED GROUP R69 ILLNESS 10-28-2016 [facility] UNSPECIFIED TRANSPORTAT ION SER K05500 PRIMARY 10-24-2016 [place] OSTEOARTHRI MEDICAL TIS LEFT IMAGING ASS SHOULDER R15749 PAIN IN 10-24-2016 [place] LEFT MEDICAL SHOULDER IMAGING ASS A084 VIRAL 10-08-2016 [facility] P UNSPECIFIED K529 NONINFECTIV 10-08-2016 [facility], GASTROENTER PLLC ITIS & COLITIS UNS K5790 DIVERTICULO 10-08-2016 [facility] SNYDER PART PHYSICIANS, UNS W/O PLLC PERF/ABSC W/O BLEED K6389 OTHER 10-08-2016 [place] SPECIFIED MEDICAL DISEASES OF IMAGING ASS INTESTINE R0789 OTHER CHEST 10-08-2016 [place] PAIN [facility]ICAL [facility] R1084 GENERALIZED 10-08-2016 [place] ABDOMINAL MEDICAL PAIN IMAGING ASS R1110 VOMITING 10-08-2016 [place] UNSPECIFIED [facility]ICAL IMAGING ASS R911 SOLITARY 06-07-2016 [facility] PULMONARY [facility] NODULE INC R918 OTHER 06-07-2016 [place] NONSPECIFIC MEDICAL ABNORMAL IMAGING ASS FINDING OF LUNG FIELD J40 BRONCHITIS 05-27-2016 [facility] NOT PHYSICIANS SPECIFIED GROUP ACUTE OR CHRONIC M5416 RADICULOPAT 04-30-2016 [facility] Z1231 ENCOUNTER 04-23-2016 [place] SCREENING MEDICAL MAMMO MALIG IMAGING ASS NEOPLASM BREAST R05 COUGH 04-09-2016 [facility] M545 LOW BACK 04-05-2016 [facility] PAIN MD MAY,PSC [id number] PAIN IN 03-22-2016 [facility] RIGHT KNEE PHYSICIANS GROUP S76421 PAIN IN 03-22-2016 [place] LEFT KNEE MEDICAL IMAGING ASS J189 PNEUMONIA 12-04-2015 [facility] UNSPECIFIED [facility] ORGANISM INC R079 CHEST PAIN 12-04-2015 [place] UNSPECIFIED [facility]ICAL IMAGING ASS K828 OTHER 06-27-2015 [place] SPECIFIED MEDICAL DISEASES OF IMAGING ASS GALLBLADDER N854 MALPOSITION 06-27-2015 [place] OF UTERUS MEDICAL IMAGING ASS R102 PELVIC AND 06-27-2015 [place] PERINEAL MEDICAL PAIN IMAGING ASS Z1212 ENCOUNTER 06-20-2015 SHRAVAN CRUZ MD MALIGNANT NEOPLASM RECTUM N926 IRREGULAR 06-14-2015 [place] MENSTRUATIO MEDICAL N IMAGING ASS UNSPECIFIED R197 DIARRHEA 06-12-2015 [facility] UNSPECIFIED PHYSICIANS GROUP Z720 TOBACCO USE 06-08-2015 [facility] INC 7202 SACROILIITI 04-13-2015 [facility] S NOT [facility] ELSEWHERE INC CLASSIFIED 38256 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[facility] 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[facility] OSACRAL INC INTERVERTEB RAL DISC V571 OTHER 04-13-2015 [facility] PHYSICAL [facility] THERAPY INC 92433 PRIMARY 04-11-2015 [facility] LOCALIZED PHYSICIANS OSTEOARTHRO GROUP SIS LOWER LEG 8248 UNSPECIFIED 04-11-2015 [facility] CLOSED PHYSICIANS FRACTURE OF GROUP ANKLE V5416 AFTERCARE 04-11-2015 [facility] TRAUMATIC INC FRACTURE LOWER LEG V5419 AFTERCARE 04-11-2015 [place] [facility] TRAUMATIC IMAGING ASS FRACTURE OTHER BONE 7213 LUMBOSACRAL 02-27-2015 [place] [facility] SPONDYLOSIS IMAGING ASS WITHOUT MYELOPATHY 29254 DISPLCMT 02-27-2015 [place] LUMBAR MEDICAL INTERVERT IMAGING ASS DISC W/O MYELOPATHY 37632 SPINAL STEN 02-27-2015 [place] LUMB REG MEDICAL W/O IMAGING ASS NEUROGENIC CLAUDICATIO N 7243 SCIATICA 02-27-2015 [facility] INC 7265 ENTHESOPATH 11-14-2014 MONISHA WOODS Y OF HIP MD REGION 40363 11-03-2014 [facility] TRANSPORTAT ION SER 8240 CLOSED 11-03-2014 [facility] FRACTURE OF TECHNOLOGIE MEDIAL S INC MALLEOLUS 8242 CLOSED 11-03-2014 [facility] FRACTURE OF PHYSICIANS LATERAL GROUP MALLEOLUS 19214 PAIN IN 10-30-2014 [place] JOINT, MEDICAL ANKLE AND IMAGING ASS FOOT 7295 PAIN IN 10-30-2014 [place] SOFT MEDICAL TISSUES OF IMAGING ASS LIMB 32040 CLOSED 10-30-2014 [facility] FRACTURE OF TECHNOLOGIE S INC UNSPECIFIED PART OF FIBULA 490 BRONCHITIS 10-25-2014 [facility] NOT PHYSICIANS SPECIFIED GROUP ACUTE OR CHRONIC 7823 EDEMA 10-13-2014 [facility] PHYSICIANS GROUP 80176 PAIN IN 09-18-2014 [facility] JOINT [facility] PELVIC INC REGION AND THIGH 35377 PAIN IN 09-18-2014 [facility] JOINT, [facility] LOWER LEG INC 42008 OTHER ACUTE 09-09-2014 [facility] PAIN PHYSICIANS GROUP 10430 OTHER 09-09-2014 [facility] KERATOSIS 97340 OSTEOARTHRO 08-29-2014 [facility] S UNSPEC PHYSICIANS WHETHER GROUP GEN/LOC UNSPEC SITE 7242 LUMBAGO 08-29-2014 [facility] 17840 OSTEOARTHRO 08-17-2014 [facility] SIS UNSPEC [facility] WHETHER INC GEN/LOC LOWER LEG 89971 UNSPECIFIED 08-17-2014 [facility] PHYSICIANS ARTHROPATHY GROUP , LOWER LEG 92022 GENERALIZED 08-17-2014 [facility] PAIN [facility] INC 9233 CONTUSION 08-17-2014 [facility] GROUP 9599 INJURY 08-17-2014 [facility] OTHER AND [facility] UNSPECIFIED INC UNSPECIFIED SITE 25400 DIVERTICULO 08-10-2014 [facility] SIS OF PHYSICIANS COLON GROUP 5641 IRRITABLE 08-10-2014 [facility] BOWEL PHYSICIANS SYNDROME GROUP 54672 ABDOMINAL 08-10-2014 [facility] PAIN OTHER PHYSICIANS SPECIFIED GROUP SITE V7651 SPECIAL 08-10-2014 [facility] SCREENING PHYSICIANS FOR GROUP MALIGNANT NEOPLASMS COLON V7231 ROUTINE 08-04-2014 [facility] AL EXAMINATION 18598 OTHER 07-28-2014 [facility] CHRONIC PHYSICIANS PAIN GROUP 5699 UNSPECIFIED 05-30-2014 [facility] DISORDER PHYSICIANS OF GROUP INTESTINE 7962 ELEVATED BP 05-30-2014 [facility] READING PHYSICIANS WITHOUT DX GROUP HYPERTENSIO N 8469 UNSPECIFIED 05-26-2014 [facility] SITE N EMERGENCY SACROILIAC PHYSI REGION SPRAIN&STRA IN E9288 OTHER 05-26-2014 [facility] ACCIDENT N EMERGENCY PHYSI 73117 OTHER 03-24-2014 [facility] AND [facility] FATIGUE INC 05816 ABDOMINAL 03-24-2014 [facility] PAIN RIGHT [facility] UPPER INC QUADRANT V7612 OTHER 03-24-2014 [facility] SCREENING [facility] MAMMOGRAM INC 05059 ESOPHAGEAL 03-15-2014 [facility] REFLUX PHYSICIANS GROUP 25129 SWELLING OF 03-01-2014 [facility] LIMB [facility] INC 462 ACUTE 01-24-2014 [facility] PHARYNGITIS N EMERGENCY PHYSI 22634 ACUTE 01-24-2014 [facility] LARYNGITIS, N EMERGENCY WITHOUT PHYSI MENTION OF OBSTRUCTIO 2689 UNSPECIFIED 11-23-2013 [facility] DEFICIENCY V5869 LONG-TERM 11-23-2013 [facility] USE OF OTHER MEDICATIONS Medications Na ND Rx Da Fi Fi Am Da Di Ph RX Ph St me C No te ll ll ou ys ag ar # ys at rm s nt no ma ic us Or Da si cy ia de te s n re d ME 59 07 08 21 6 00 CL Ac TH 74 -0 -0 .0 00 IN ti YL 60 5- 4- 00 00 IC ve SD 00 20 20 43 ED 10 17 [...] 50 CY 0 MG TA BL ET BE 67 07 08 15 5 00 CL Ac NZ 87 -0 -0 .0 00 IN ti ON 70 3- 4- 00 00 IC ve AT 10 20 20 43 AT 50 17 17 57 PH E 1 81 AR 10 MA 0 CY MG CA PS UL E AL 67 07 08 20 10 00 CL Ac SD 25 -0 -0 .0 00 IN ti [...] 60 0- 30 MG TA BL ET GA 68 07 [...] CY MG TA BL ET OX 13 07 08 90 30 00 CL Ac YC 10 -1 -0 .0 00 IN ti OD 70 3- 4- 00 00 IC ve ON 04 20 20 43 E- 40 17 17 59 PH AC 1 28 AR ET MA AM CY IN OP HE N 5- 32 5 AL 67 06 07 30 10 00 CL Ac SD 25 -2 -2 .0 00 IN ti [...] T CY 8 MG TA BL ET GA 68 04 05 90 30 00 [...] CY MG TA BL ET NE 00 04 [...] 3- 5- 00 00 IC ve ON 14 20 20 42 E 00 17 17 80 PH HC 1 26 AR L MA 5 CY MG TA BL ET OX 13 04 05 90 30 00 CL Ac YC 10 -1 -0 .0 00 IN ti OD 70 4- 5- 00 00 IC ve ON 20 20 42 E- 40 17 17 80 PH AC 1 74 AR ET MA AM CY IN OP HE N 5- 32 5 ON 00 03 04 10 3 00 [...] 5- 7- 00 00 IC ve ON 20 20 42 E- 40 17 17 [...] OP HE N 5- 32 5 OX 68 12 01 90 30 00 CL Ac YC 30 -1 -0 .0 00 IN ti OD 80 5- 9- 00 00 IC ve ON 84 20 20 41 E- 10 16 17 63 PH AC 1 74 AR ET MA AM CY IN OP HE N 5- 32 5 GA 68 12 01 90 30 00 CL Ac BA 38 -1 -0 .0 00 IN ti PE 20 5- 9- 00 00 IC ve NT 20 20 20 41 IN 40 16 17 52 PH 5 85 AR 60 MA 0 CY MG TA BL ET TI 57 12 01 90 30 00 CL Ac ZA 66 -1 -0 .0 00 IN ti NI 40 5- 9- 00 00 IC ve DI 50 20 20 41 NE 31 16 17 52 PH 8 86 AR HC MA L CY 4 MG TA BL ET Procedures Procedure DOS Code Location Performer Comment RADIOLOGI 39327 [facility] EXAM 7 MEDICAL CHEST 2 IMAGING VIEWS ASS FRONTAL&L ATERAL DRUG TEST 62008 DONNA FARLEY PRSMV 7 SIOBHAN OLVERA MD,[facility] CHEMISTRY ANALYZERS HYALURONA J7321 [facility] N/DERIV 7 PHYSICIAN HYALGAN/S S GROUP UPARTZ IA INJ PER DOSE ARTHROCEN 06778 [facility] TESIS 7 PHYSICIAN ASPIR&/IN S GROUP J MAJOR JT/BURSA W/O US RADEX 50826 [facility] UPPER GI 7 [facility] W/WO INC INC GLUCAGON/ DELAY IMAGES W/KUB RADEX 19057 [facility] UPPER GI 7 MEDICAL W/WO IMAGING GLUCAGON/ ASS DELAY IMGES W/O KUB OCCUPATIO 65794 [facility] ARCE NAL 7 [facility] THERAPY INC INC EVAL LOW COMPLEX 30 MINS HYALURONA J7321 [facility] N/DERIV 7 PHYSICIAN HYALGAN/S S GROUP UPARTZ IA INJ PER DOSE HYALURONA J7321 [facility] N/DERIV 7 PHYSICIAN HYALGAN/S S GROUP UPARTZ IA INJ PER DOSE DRUG TEST 49760 DONNA ARNDT PRSMV 7 BLUE OLVERA MD,[facility] CHEMISTRY ANALYZERS NONEMER A0120 [facility] FEDERATED TRNSPRT: 7 MINI-BUS TRANSPORT TRANSPORT MTN [facility]/OTH SYS RADEX 84273 [place] [facility]OTT SHOULDER 7 MEDICAL COMPLETE IMAGING MINIMUM 2 ASS VIEWS INJ J0702 [facility] BETAMETHA 7 PHYSICIAN SONE S GROUP ACETATE & PHOSPHATE 3 MG ARTHROCEN 72735 [facility] TESIS 7 PHYSICIAN ASPIR&/IN S GROUP J MAJOR JT/BUR[place] W/[place] [address] [facility] ARCE TROPONIN 7 [facility] QUANTITAT INC INC UZMA BLOOD 48724 [facility] COUNT 7 [facility] COMPLETE INC INC AUTO&AUTO DIFRNTL WBC RADIOLOGI 93925 [place] [facility] EXAM 7 MEDICAL CHEST 2 IMAGING VIEWS ASS FRONTAL&[place] [address] GREGORY VASQUEZUTCHER ABDOMEN & 7 MEDICAL PELVIS IMAGING W/O ASS CONTRAST MATERIAL ECG 80830 [facility] ARCE ROUTINE 7 [facility] ECG INC INC W/LEAST 12 LDS TRCG ONLY W/O I&R CREATINE 78835 [facility] KINASE 7 [facility] TOTAL INC INC COMPREHEN 56711 [facility] SIVE 7 [facility] METABOLIC INC INC PANEL CREATINE 07513 [facility] ARCE KINASE MB 7 [facility] FRACTION INC INC ONLY ECG 43233 [facility] ROUTINE 7 [facility] W/LEAST P 12 LDS I&R ONLY RHYTHM 51886 [facility] ARCE ECG 1-3 7 [facility] LEADS INC INC TRACING ONLY W/[place] [address] [facility] ARCE INFUSION 7 [facility] THERAPY/P INC INC ROPHYLAXI S /DX 1ST TO 1 HR THERAPEUT 96119 [facility] ARCE IC 7 [facility] INJECTION INC INC IV PUSH EACH NEW DRUG DRUG TEST 36152 DONNA ARNDT PRSMV 7 BLUE OLVERA INSTRMNElmira SANCHEZ,PSC CHEMISTRY ANALYZERS NONEMERG A0120 FEDERATED FEDERATED TRNSPRT: 7 MINI-BUS TRANSPORT TRANSPORT MTN ATION SER ATION SER AREA/OTH SYS NONEMERG A0120 FEDERATED FEDERATED TRNSPRT: 6 MINI-BUS TRANSPORT TRANSPORT MTN ATION SER ATION SER AREA/OTH SYS DRUG TEST G0479 DONNA ARNDT 6 BLUE OLVERA PRESUMP;I ,PSC NSTRUMENT ED CHEMISTRY ANLYZER CT THORAX 60903 GREGORY CINTRON W/O 6 MEDICAL CONTRAST IMAGING MATERIAL ASS INJECTION J0696 [facility] STONE LALITA 6 PHYSICIAN CEFTRIAXO S GROUP NE SODIUM PER 250 MG INJECTION J1040 [facility] STONE LALITA 6 PHYSICIAN METHYLPRE S GROUP DNISOLONE ACETATE 80 MG THERAPEUT 75984 [facility] STONE LALITA IC 6 PHYSICIAN PROPHYLAC S GROUP TIC/DX INJECTION SUBQ/IM NJX 94094 DONNA FARLEY ANES&/STR 6 SAMI OLVERA W/LEONARDO SANCHEZ,[facility] TFRML EDRL LMBR/SAC 1 LVL NJX 26217 DONNA FARLEY ANES&/STR 6 SAMI OLVERA W/LEONARDO SANCHEZ,PSC TFRML EDRL LMBR/SAC EA LV DRUG TEST G0479 DONNA FARLEY 6 SAMI OLVERA;Svetlana SANCHEZ,[facility] NSTRUMENT ED CHEMISTRY ANLYZER NONEMERG A0120 FEDERATED FEDERATED TRNSPRT: 6 MINI-BUS TRANSPORT TRANSPORT MTN ATION SER ATION SER AREA/OT SYS SCREENING G0202 [facility] 6 MEDICAL MAMMOGRAP IMAGING HY PADMA ASS INCL CAD WHEN PERFORMD COMPUTER- 15186 [facility] AIDED 6 MEDICAL DETECTION IMAGING ASS SCREENING MAMMOGRAP HY RADIOLOGI 94643 [facility] ARCE C EXAM 6 [facility] CHEST 2 INC INC VIEWS FRONTAL&L ATERAL NONEMERG A0120 [facility]ATED FEDERATED TRNSPRT: 6 MINI-BUS TRANSPORT TRANSPORT MTN ATION SER ATION SER AREA/OT SYS RADIOLOGI 57613 [facility] ARCE C EXAM 6 [facility] KNEE INC INC COMPLETE 4/MORE VIEWS INJECTION J1885 [facility] CHILO 6 PHYSICIAN JUHI KETOROLAC S GROUP TROMETHAM INE PER 15 MG THERAPEUT 21107 [facility] CH[facility]O IC 6 PHYSICIAN JUHI PROPHYLAC S GROUP TIC/DX INJECTION SUBQ/IM CV STRS 09677 [facility] KARISHMA MARCOS TST 6 PHYSICIAN XERS&/OR S GROUP RX CONT ECG W/O I&R CT THORAX 19366 [place] [facility] ALL W/O 6 MEDICAL CONTRAST IMAGING MATERIAL ASS RADIOLOGI 07826 [place] [facility] C 6 MEDICAL EXAMINATI IMAGING ON CHEST ASS SINGLE VIEW FRONTAL RADIOLOGI 63712 [place] SCOTT C EXAM 6 MEDICAL JUDY CHEST 2 IMAGING VIEWS ASS FRONTAL&L ATERAL RADIOLOGI 44074 [facility] ARCE C EXAM 6 [facility] CHEST 2 INC INC VIEWS FRONTAL&L ATERAL THERAPEUT 05272 [facility] CHILO IC 6 PHYSICIAN JUHI PROPHYLAC S GROUP TIC/DX INJECTION SUBQ/IM INJECTION J0696 [facility] CHILO 6 PHYSICIAN JUHI CEFTRIAXO S GROUP NE SODIUM PER 250 MG LOCM Q9967 Y[facility] ARCE 300-399 5 [facility] MG/ML INC [place] [address] [facility] ABDOMEN & 5 MEDICAL BERNADETTE PELVIS IMAGING W/CONTRAS ASS T MATERIAL BLOOD 56171 SHRAVAN CRUZ OCCULT 5 NANCY SANCHEZ PHILOMENA PEROXIDAS E ACTV QUAL FECES 1-3 SPEC COLLECTIO 29929 [facility] AREC N VENOUS 5 [facility] BLOOD INC INC VENIPUNCT URE CREATININ 46104 [facility] ARCE E BLOOD 5 [facility] INC INC URINLS 40227 SHRAVAN CRUZ DIP 5 NANCY SANCHEZ PHILOMENA STICK/TAB LET REAGNT NON-AUTO MICRSCPY CARCINOEM 16833 [facility] ARCE BRYONIC 5 [facility] [place] [address] [facility] ARCE UREA 5 [facility] NITROGEN INC INC QUANTITAT UZMA IMMUNOASS 29731 [facility] ARCE AY TUMOR 5 [facility] [address] [place] [facility] TRANSVAGI 5 [place] [address] [facility] ARCE AMYLASE 5 [facility] INC INC URNLS DIP 06010 [facility] ARCE 5 [facility] STICK/TAB INC [place] [address] [facility] ARCE INFUSION 5 [facility] THERAPY/P INC INC ROPHYLAXI S /DX 1ST TO 1 HR THERAPEUT 06494 [facility]CE IC 5 [facility] INJECTION INC INC IV PUSH EACH NEW DRUG COMPREHEN 19986 [facility] SIVE 5 [facility] [address] [facility] ARCE LIPASE 5 [facility] INC INC BLOOD 22789 [facility] ARCE COUNT 5 [facility] COMPLETE INC INC AUTO&AUTO DIFRNTL WBC INJECTION J2405 [facility] ARCE 5 [facility] ONDANSETR INC INC ON HCL PER 1 MG INJECTION J1030 [facility] ARCE 5 [facility] METHYLPRE INC INC DNISOLONE ACETATE 40 MG AUTOLOGOU G0460 [facility] S 5 [facility] PLATELET- [place] [address] DEENA CHILDERS JULIANNE JOINT 5 MD PEGGY, ARTHRGRP PSC Y&/ANES/S TEROID W/DCIK APPL 27453 [facility] ARCE MODALITY 5 [facility] 1/> AREAS INC INC ELEC STIMJ EA 15 MIN RADEX 24392 [place] BEINEKE ANKLE 5 MEDICAL BERNADETTE COMPLETE IMAGING MINIMUM 3 ASS VIEWS RADEX 08660 [place] [facility] ALL ANKLE 5 MEDICAL COMPLETE IMAGING MINIMUM 3 ASS VIEWS MRI 01639 [place] [facility] SPINAL 5 MEDICAL JUDY CANAL IMAGING LUMBAR ASS W/O CONTRAST MATERIAL 3D 77159 [place] [facility] RENDERING 5 MEDICAL JUDY W/INTERP IMAGING & ASS POSTPROCE SS SUPERVISI ON RADEX 73614 [place] [facility] ANKLE 5 MEDICAL JUDY COMPLETE IMAGING MINIMUM 3 ASS VIEWS RADEX 25674 [place] [facility] ALL ANKLE 5 MEDICAL COMPLETE IMAGING MINIMUM 3 ASS VIEWS RADEX 68920 [place] [facility] ANKLE 5 MEDICAL JUDY COMPLETE IMAGING MINIMUM 3 ASS VIEWS WALKING L4360 [facility] BOOT 5 TECHNOLOG TECHNOLOG PNEUMATC IES INC IES INC &/ VACUUM PREFAB CUSTM FIT CLTX DSTL 93152 [facility] FIBULAR 5 PHYSICIAN JAM FX LAT S GROUP MALLS W/O MANJ NONEMERG A0120 FEDERATED FEDERATED TRNSPRT: 5 MINI-BUS TRANSPORT TRANSPORT MTN ATION SER ATION SER AREA/OTH SYS ANKLE L4350 [facility] CONTROL 5 TECHNOLOG TECHNOLOG ORTHOSIS IES INC IES INC STIRRUP STYL RIGID PREFAB RADEX 77198 [facility] SCOTT ANKLE 5 MEDICAL JUDY COMPLETE IMAGING MINIMUM 3 ASS VIEWS RADEX 22658 [facility] FOOT 5 MEDICAL JUDY COMPLETE IMAGING MINIMUM 3 [place] [address] MADAR BUX BUX ANJ JOINT 5 MD ARTHRGRPH Y&/ANES/S TEROID W/DICK INJECTION J1030 [facility] ARCE 5 [facility] METHYLPRE INC INC DNISOLONE ACETATE 40 MG LOCM Q9967 [facility] ARCE 300-399 5 [facility] MG/ML INC INC IODINE CONCENTRA TION PER ML INJ PROC G0260 [facility] SI 5 [facility] JNT;ANES INC INC STEROID&/ TX AGT&ARTHR OGRPH FLUOR 09300 MADAR BUX BUX ANJ NEEDLE/CA 5 SPINE/PAR ASPINAL DX/THER ADDON ARTHROCEN 22359 MAD[facility] BUX BUX ANJ TESIS 5 ASPIR&/IN J MAJOR JT/BURSA W/O US APPL 87567 [facility] ARCE MODALITY 5 [facility] 1/> AREAS INC INC ELEC STIMJ UNATTENDE D APPLICATI 07926 [facility] ARCE ON 5 [facility] MODALITY INC INC /> AREAS HOT/COLD PACKS APPL 29017 [facility] MODALITY 5 [facility] 1/> AREAS INC INC ULTRASOUN D EA 15 MIN MANUAL 60734 [facility] ARCE THERAPY 5 [facility] TQS 1/> INC INC REGIONS EACH 15 MINUTES THERAPEUT 89916 [facility] ARCE IC PX 1/> 5 [facility] AREAS INC INC EACH 15 MIN EXERCISES THERAPEUT 19195 [facility] ARCE IC PX 1/> 5 [facility] AREAS INC INC EACH 15 MIN EXERCISES PHYSICAL 86588 [facility] ARCE THERAPY 5 [facility] EVALUATIO INC INC N EXC B9 49059 [facility] CHILO LESION 5 PHYSICIAN JUHI MRGN XCP S GROUP SK TG T/A/L 1.1-2[place] [address] [facility], [facility] SURG 5 [facility] PATHOLOGY GROSS&JUHI ROSCOPIC EXAM RADEX 31602 [facility] FINGR 5 [facility] MINIMUM 2 INC INC VIEWS RADIOLOGI 20840 [facility] C EXAM 5 [facility] KNEE INC INC COMPLETE 4/MORE VIEWS THERAPEUT 16699 [facility] IC 5 PHYSICIAN JUHI PROPHYLAC S GROUP TIC/DX INJECTION SUBQ/IM INJECTION J1885 [facility] 5 PHYSICIAN JUHI KETOROLAC S GROUP TROMETHAM INE PER 15 MG CYTP C/V 47713 [facility], [facility] AUTO THIN 5 [facility] LYR PREPJ SCR MNL RESCR PHYS INJECTION J1040 [facility] 5 PHYSICIAN JUHI METHYLPRE S GROUP DNISOLONE ACETATE 80 MG ANES 99477 [facility] 5 ANESTH SHE INTESTINE OF THE BLUE ENDOSCOPY DISTAL DUODENUM SIGMOIDOS 51292 [facility] KASSI TOD COPY FLX 5 PHYSICIAN DX S GROUP W/COLLJ SPEC BR/WA IF PFRMD BASIC 41533 [facility] METABOLIC 5 [facility] PANEL INC INC CALCIUM TOTAL BLOOD 16737 [facility] COUNT 5 [facility] COMPLETE INC INC AUTO&AUTO DIFRNTL WBC INJECTION J1885 [facility] 4 PHYSICIAN JUHI KETOROLAC S GROUP TROMETHAM INE PER 15 MG THERAPEUT 27468 [facility] IC 4 PHYSICIAN JUHI PROPHYLAC S GROUP TIC/DX INJECTION SUBQ/IM THERAPEUT 91888 [facility] IC 4 PHYSICIAN JUHI PROPHYLAC S GROUP TIC/DX INJECTION SUBQ/IM INJECTION J1100 [facility] 4 PHYSICIAN JUHI DEXAMETHO S GROUP SONE SODIUM PHOSPHATE 1 MG HYALURONA J7325 [facility] PETTEY N/DERIV 4 PHYSICIAN JAM SYNVISC/S S GROUP YNVISC-ON E IA INJ 1 MG ARTHROCEN 45528 [facility] HIRAL COLLIER 4 PHYSICIAN JAM ASPIR&/IN S GROUP J MAJOR JT/BURSA W/O US HEPATITIS 50418 [facility] A 4 [facility] ANTIBODY INC INC HAAB RHEUMATOI 51123 [facility] AR[facility] D FACTOR 4 [facility] QUANTITAT INC INC UZMA HEPATITIS 79749 [facility] C 4 [facility] [place] [address] [facility] BLOOD/URI 4 [facility] C ACID INC INC ANTINUCLE 35203 [facility] AR 4 [facility] ANTIBODIE INC INC S MARIBELL SEDIMENTA 39280 [facility] TION RATE 4 [facility] RBC INC INC NON-AUTOM ATED IMMUNOASS 38336 [facility] AY NFCT 4 [facility] AGT ANTB INC INC QUAL/SEMI KATHY 1 STEP HEPATITIS 39169 [facility] Briones CORE 4 [facility] ANTIBODY INC INC HBCAB TOTAL HEPATITIS 69721 [facility] B SURF 4 [facility] [place] [address] [facility] ARCE HEPATITIS 4 [facility] B INC INC SURFACE ANTIGEN GONADOTRO 41216 [facility] PIN [facility] [place] [address] [facility] ABDOMINAL 4 [facility] REAL INC [place] TIME W/[place] [address] [facility] AMYLASE 4 [facility] INC INC SCREENING G0202 BEINEKE D BEINEKE D 4 MAMMOGRAP HY PADMA INCL CAD WHEN PERFORMD COMPUTER- 30256 [facility] AIDED 4 [facility] DETECTION INC INC SCREENING MAMMOGRAP HY GONADOTRO 21852 [facility] AR[facility] PIN 4 [facility] LUTEINIZI INC INC NG HORMONE [place] OF [id number] [facility] INC INC CYANOCOBA 17564 [facility]CE CARISA 4 [facility] VITAMIN INC INC B-12 RADIOLOGI 88530 Y[facility] C EXAM 4 [facility] KNEE INC INC COMPLETE 4/MORE VIEWS URNLS DIP 32090 [facility]CE [facility] ST[facility]/TAB INC INC LET REAGENT AUTO MICROSCOP Y HEMOGLOBI 50027 [facility]CE N 4 [facility] GLYCOSYLA INC INC SHADY A1C GENERAL 75516 [facility]CE HEALTH 4 [facility] PANEL INC INC DUP-SCAN 65471 SCOTT SCOTT XTR VEINS 4 JUDY [place] [address] [facility] THYROXINE 4 [facility] TOTAL INC INC FIBRIN 24745 [facility]CE DGRADJ 4 [facility] PRODUCTS INC INC D-DIMER QUAL/SEMI KATHY THERAPEUT 59674 [facility] IC 4 [facility] PROPHYLAC INC INC TIC/DX INJECTION SUBQ/IM BLOOD 20519 [facility] COUNT 4 [facility] COMPLETE INC INC AUTO&AUTO DIFRNTL WBC RADIOLOGI 92043 Y[facility]MIN C EXAM 4 [facility] CHEST 2 INC INC VIEWS FRONTAL&L ATERAL CYANOCOBA 18487 [facility] UNIVERSIT CARISA 4 Y Y VITAMIN [facility] B-12 25 95838 [facility] HYDROXY 4 Y Y INCLUDES HOSPITAL HOSPITAL FRACTIONS IF PERFORMED HEMOGLOBI 21244 [facility] UNIVERSIT N 4 Y Y GLYCOSYLA [facility] SAHDY A1C LIPID 68131 [facility] UNIVERSIT PANEL 4 Y Y HOSPITAL [facility] COMPREHEN 81835 [facility] SIVE 4 Y Y METABOLIC [facility] PANEL BLOOD 88153 [facility] UNIVERSIT COUNT 4 Y Y COMPLETE [facility] [place] [address] [facility] THYROID 4 Y Y [facility] Encounters Encounter Start End Date Code Location Performer Type Date OFFICE 43055 DONNA FARLEY OUTPATIEN 7 7 Elmira OLVERA MD,[facility] 25 MINUTES [facility] - [facility] 7 7 [facility] T OFFICE 64030 DONNA ARNDT OUTPATIEN 7 7 BLUE OLVERA VISIT ,[facility] 25 MINUTES [facility] - 7 7 [facility] T OFFICE 04855 [facility] 7 7 PHYSICIAN T VISIT S GROUP 10 MINUTES EMERGENCY 20988 [facility] 7 7 [facility] HIGH/URGE NT SEVERITY EMERGENCY 30078 ANDRA FELIX DEPT 7 7 PHYSICIAN VISIT S, [facility] HIGH SEVERITY& THREAT FUNJ OFFICE 30680 [facility] OUTPATIEN 7 7 PHYSICIAN T VISIT S GROUP 25 MINUTES [facility]OSPITAL [facility] - 7 7 [facility] INC T OFFICE 63456 DONNA ARNDT OUTPATIEN 6 6 BLUE OLVERA VISIT ,[facility] 25 MINUTES HOSPITAL [facility] - 6 6 [facility] INC T OFFICE 02803 [facility] LALITA OUTPATIEN 6 6 PHYSICIAN T VISIT S GROUP 25 MINUTES [facility] - 6 6 [facility] INC [facility] - 6 6 [facility] INC T OFFICE 82828 [facility] OUTPATIEN 6 6 PHYSICIAN JUHI T VISIT S GROUP 15 MINUTES OFFICE 51381 DONNA FARLEY OUTPATIEN 6 6 SAMI OLVERA MD,[facility] MINUTES OFFICE 58236 [facility] OUTPATIEN 6 6 PHYSICIAN JUHI T VISIT S GROUP 15 MINUTES [facility] - 6 6 [facility] T OFFICE 36837 [facility] OUTPAT[facility] 6 6 PHYSICIAN JAM T VISIT S GROUP 15 MINUTES OFFICE 75363 [facility] OUTPAT[facility] 6 6 PHYSICIAN JUHI T VISIT S GROUP 15 MINUTES [facility]PITAL [facility] - 6 6 [facility] INC T OFFICE 57227 [facility] OUTPATI[facility] 6 6 PHYSICIAN JUHI T VISIT S GROUP 10 MINUTES [facility] - 6 6 [facility] T [facility] - 6 6 [facility] INC T OFFICE 35435 [facility] OUT[facility] 6 6 PHYSICIAN JUHI T VISIT S GROUP 10 MINUTES [facility]OSPITAL [facility] - 5 5 [facility] YAZMIN - 5 5 [facility] OUTPAT[facility] INC T OFFICE 16827 [facility] OUTPATIEN 5 5 [facility] 45 MINUTES [facility] - 5 5 [facility] INC T OFFICE 81557 [facility] OUTPAT[facility] 5 5 PHYSICIAN JUHI T VISIT S GROUP 15 MINUTES [facility]PITAL [facility] - 5 5 [facility] INC T EMERGENCY 58872 ANDRA JOYNER 5 5 PHYSICIAN Shima LACY S, [facility] T VISIT HIGH/URGE NT SEVERITY [facility]OSP[facility] - 5 5 [facility] - 5 5 [facility] INC T OFFICE 67670 [facility] 5 5 PHYSICIAN JAM T VISIT S GROUP 15 MINUTES [facility] - 5 5 [facility]PAT[facility] INC T OFFICE 03588 [facility] OUTPATIEN 5 5 [facility] T VISIT INC 10 MINUTES HOSPITAL [facility] - 5 5 [facility] INC T OFFICE 17809 [facility] OUT[facility] 5 5 PHYSICIAN JAM T VISIT S GROUP 10 MINUTES [facility]OSPITAL [facility] - 5 5 [facility] T [facility] - 5 5 [facility] - 5 5 [facility] INC T OFFICE 67002 [facility] ANJ OUTPATIEN 5 5 MD T VISIT 10 MINUTES [facility]OSP[facility] - 5 5 [facility] T OFFICE 20676 [facility] OUTPAT[facility] 5 5 PHYSICIAN JUHI T VISIT S GROUP 15 MINUTES OFFICE 19767 [facility] 5 5 PHYSICIAN JUHI T VISIT S GROUP 15 MINUTES OFFICE 62996 MONISHA [facility] ANJ OUTPATIEN 5 5 MD T [facility] - 5 5 [facility]PAT[facility] INC [facility] - 5 5 [facility] INC T OFFICE 58898 [facility] 5 5 PHYSICIAN JUHI T VISIT S GROUP 10 MINUTES [facility]PITAL [facility] - 5 5 [facility] INC T OFFICE 71281 [facility] OUT[facility] 5 5 PHYSICIAN JAM T VISIT S GROUP 15 MINUTES OFFICE 39541 [facility] K[facility] TOD OUTPATIEN 5 5 PHYSICIAN T VISIT S GROUP 15 MINUTES PERIODIC 29418 [facility] PREVENTIV 5 5 PHYSICIAN JUHI E MED EST S GROUP PATIENT 40-64YRS OFFICE 30685 [facility] OUTPATIEN 5 5 PHYSICIAN JUHI T VISIT S GROUP 15 MINUTES [facility] - 5 5 [facility] INC T OFFICE 86323 [facility] KASSI TOD CONSULTAT 4 4 PHYSICIAN ION S GROUP NEW/ESTAB PATIENT 40 MIN OFFICE 56566 [facility] OUT[facility] 4 4 PHYSICIAN JUHI T VISIT S GROUP 10 MINUTES OFFICE 24288 [facility] 4 4 PHYSICIAN JUHI T VISIT S GROUP 15 MINUTES EMERGENCY 43861 [facility] 4 4 RAMU JUHI DEPARTMEN EMERGENCY T VISIT PHYSI HIGH/URGE NT SEVERITY [facility] - 4 4 [facility] OUTPATIEN [facility] T OFFICE 49899 [facility] OUTPAT[facility] 4 4 PHYSICIAN JAM T NEW 30 S GROUP MINUTES [facility]OSPITAL [facility] - 4 4 [facility] OUTPAT[facility]EN [facility] T OFFICE 64318 [facility] 4 4 PHYSICIAN JUHI T VISIT S GROUP 15 MINUT[facility] HOSPITAL Y[facility] - 4 4 [facility]EN [facility] YAZMIN - 4 4 [facility] OUTPATIEN [facility] T EMERGENCY 09674 [facility] 4 4 RAMU RAMU DEPARTMEN EMERGENCY EMERGENCY T VISIT PHYSI PHYSI HIGH/URGE NT SEVERITY EMERGENCY 34965 [facility] 4 4 [facility] DEPARTMEN INC T VISIT LOW/MODER SEVERITY [facility]OSPITAL UNIVERSIT - 4 4 [facility] T OFFICE 14361 [facility] OUTPATIEN 4 4 NURSE GÉNESIS T NEW 30 PRACTITIO MINUTES NER GR
--- OUTSIDE RECORDS SUMMARY | 2017-03-04 10:51 | External Medical Summary Rpt ---
Author Author , VERONICA Organization VERONICA Address Unknown Phone [email or web address] Care Team Providers Care [employer] Foreman Name Role Phone [employer] Unavailable Unavailable [...] SHRAVAN CRUZ PHILOMENA, HARPEL Unavailable Unavailable [facility]OMENA [facility] Unavailable Unavailable INC, [facility] Unavailable Unavailable [facility] P, [facility], Unavailable Unavailable [facility] FELIX, FELIX Unavailable Unavailable [facility] Un[facility] Un[facility] MONISHA WOODS MD, MONISHA [...] [facility], [facility] MAKENNA SHE, Unavailable Unavailable MAKENNA SHE STONE, STONE Unavailable Unavailable ST[facility] LALITA, STONE LALITA Unavailable Unavailable [facility], Unavailable Unavailable [facility] Purpose Continuity of Care Document - 11-18-2013 through 2016 Problems Code Diagnosis DOS Provider Status R0602 SHORTNESS 01-20-2017 [facility] OF [facility] M4726 OTH 12-20-2016 DONNA SPONDYLOSIS MD MAY,PSC W/RADICULOP ATHY LUMBAR REGION L54204 FCI 12-20-2016 DONNA CURRENT USE JULIANA OLVERA OPIATE ,PSC ANALGESIC M1712 UNILATERAL 11-28-2016 [facility] OSTEOARTHRI GROUP TIS LEFT KNEE K219 GASTRO-ESOP 11-21-2016 [facility] H [facility]UX [facility] DISEASE INC WITHOUT ESOPHAGITIS R1012 LEFT UPPER 11-21-2016 [facility] QUADRANT [facility] PAIN IMAGING ASS R12 HEARTBURN 11-21-2016 [facility] A16770 OTHER 11-15-2016 [facility] SPECIFIED [facility] ARTHRITIS INC LEFT SHOULDER M7542 IMPINGEMENT 11-15-2016 [facility] SYNDROME [facility] OF LEFT INC SHOULDER M170 BILATERAL 11-13-2016 [facility]YS[facility]ANS OSTEOARTHRI GROUP TIS OF KNEE [id number] PRIMARY 11-13-2016 [facility] OSTEOARTHRI PHYSICIANS TIS GROUP UNSPECIFIED SHOULDER M129 ARTHROPATHY 11-07-2016 [facility] PHYSICIANS UNSPECIFIED GROUP R69 ILLNESS 10-28-2016 [facility] UNSPECIFIED TRANSPORTAT ION SER P86427 PRIMARY 10-24-2016 [facility] OSTEOARTHRI MEDICAL TIS LEFT IMAGING ASS SHOULDER [id number] PAIN IN 10-24-2016 [facility] LEFT MEDICAL SHOULDER IMAGING ASS A084 VIRAL 10-08-2016 [facility] P UNSPECIFIED K529 NONINFECTIV 10-08-2016 [facility], GASTROENTER PLLC ITIS & COLITIS UNS K5790 DIVERTICULO 10-08-2016 [facility] SNYDER PART PHYSICIANS, UNS W/O PLLC PERF/ABSC W/O BLEED K6389 OTHER 10-08-2016 [facility] SPECIFIED MEDICAL DISEASES OF IMAGING ASS INTESTINE R0789 OTHER CHEST 10-08-2016 [facility] PAIN [facility] R1084 GENERALIZED 10-08-2016 [facility] ABDOMINAL [facility]ICAL PAIN [facility]ING ASS R1110 VOMITING 10-08-2016 [facility] UNSPECIFIED [facility]ICAL IMAGING ASS R911 SOLITARY 06-07-2016 [facility] PULMONARY [facility] NODULE INC R918 OTHER 06-07-2016 [facility] NONSPECIFIC MEDICAL ABNORMAL IMAGING ASS FINDING OF LUNG FIELD J40 BRONCHITIS 05-27-2016 [facility] NOT PHYSICIANS SPECIFIED GROUP ACUTE OR CHRONIC M5416 RADICULOPAT 04-30-2016 [facility] Z1231 ENCOUNTER 04-23-2016 [facility] SCREENING MEDICAL MAMMO MALIG IMAGING ASS NEOPLASM BREAST R05 COUGH 04-09-2016 [facility] M545 LOW BACK 04-05-2016 THOMPSON PAIN MD MAY,PSC I76191 PAIN IN 03-22-2016 [facility] RIGHT KNEE PHYSICIANS GROUP S31037 PAIN IN 03-22-2016 [facility] LEFT KNEE MEDICAL IMAGING ASS J189 PNEUMONIA 12-04-2015 [facility] UNSPECIFIED [facility] ORGANISM INC R079 CHEST PAIN 12-04-2015 [facility] UNSPECIFIED [facility]ICAL IMAGING ASS K828 OTHER 06-27-2015 [facility] SPECIFIED MEDICAL DISEASES OF IMAGING ASS GALLBLADDER N854 MALPOSITION 06-27-2015 [facility] OF UTERUS MEDICAL IMAGING ASS R102 PELVIC AND 06-27-2015 [facility] PERINEAL [facility]ICAL PAIN IMAGING ASS Z1212 ENCOUNTER 06-20-2015 SHRAVAN CRUZ MD MALIGNANT NEOPLASM RECTUM N926 IRREGULAR 06-14-2015 [facility] MENSTRUATIO MEDICAL N IMAGING ASS UNSPECIFIED R197 DIARRHEA 06-12-2015 [facility] UNSPECIFIED PHYSICIANS GROUP Z720 TOBACCO USE 06-08-2015 [facility] INC 7202 SACROILIITI 04-13-2015 [facility] S NOT [facility] ELSEWHERE INC CLASSIFIED 16192 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[facility] 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[facility] OSACRAL INC INTERVERTEB RAL DISC V571 OTHER 04-13-2015 [facility] PHYSICAL [facility] THERAPY INC 05889 PRIMARY 04-11-2015 [facility] LOCALIZED PHYSICIANS OSTEOARTHRO GROUP SIS LOWER LEG 8248 UNSPECIFIED 04-11-2015 [facility] CLOSED PHYSICIANS FRACTURE OF GROUP ANKLE V5416 AFTERCARE 04-11-2015 [facility] TRAUMATIC INC FRACTURE LOWER LEG V5419 AFTERCARE 04-11-2015 [facility] TRAUMATIC IMAGING ASS FRACTURE OTHER BONE 7213 LUMBOSACRAL 02-27-2015 [facility] SPONDYLOSIS IMAGING ASS WITHOUT MYELOPATHY 24214 DISPLCMT 02-27-2015 [facility] LUMBAR MEDICAL INTERVERT IMAGING ASS DISC W/O MYELOPATHY 82335 SPINAL STEN 02-27-2015 [facility] LUMB REG MEDICAL W/O IMAGING ASS NEUROGENIC CLAUDICATIO N 7243 SCIATICA 02-27-2015 [facility] INC 7265 ENTHESOPATH 11-14-2014 MONISHA WOODS Y OF HIP MD REGION 13352 11-03-2014 [facility] TRANSPORTAT ION SER 8240 CLOSED 11-03-2014 [facility] FRACTURE OF TECHNOLOGIE MEDIAL S INC MALLEOLUS 8242 CLOSED 11-03-2014 [facility] FRACTURE OF PHYSICIANS LATERAL GROUP MALLEOLUS 45793 PAIN IN 10-30-2014 [facility] JOINT, MEDICAL ANKLE AND IMAGING ASS FOOT 7295 PAIN IN 10-30-2014 [facility] SOFT MEDICAL TISSUES OF IMAGING ASS LIMB 33374 CLOSED 10-30-2014 [facility] FRACTURE OF TECHNOLOGIE S INC UNSPECIFIED PART OF FIBULA 490 BRONCHITIS 10-25-2014 [facility] NOT PHYSICIANS SPECIFIED GROUP ACUTE OR CHRONIC 7823 EDEMA 10-13-2014 [facility] PHYSICIANS GROUP 96972 PAIN IN 09-18-2014 [facility] JOINT [facility] PELVIC INC REGION AND THIGH 54227 PAIN IN 09-18-2014 [facility] JOINT, [facility] LOWER LEG INC 79276 OTHER ACUTE 09-09-2014 [facility] PAIN PHYSICIANS GROUP 01686 OTHER 09-09-2014 [facility] KERATOSIS 15561 OSTEOARTHRO 08-29-2014 [facility] S UNSPEC PHYSICIANS WHETHER GROUP GEN/LOC UNSPEC SITE 7242 LUMBAGO 08-29-2014 [facility] PHYSICIANS GROUP 85170 OSTEOARTHRO 08-17-2014 [facility] SIS UNSPEC [facility] WHETHER INC GEN/LOC LOWER LEG 75680 UNSPECIFIED 08-17-2014 [facility] PHYSICIANS ARTHROPATHY GROUP , LOWER LEG 89528 GENERALIZED 08-17-2014 [facility] PAIN [facility] INC 9233 CONTUSION 08-17-2014 [facility] OF FINGER PHYSICIANS GROUP 9599 INJURY 08-17-2014 [facility] OTHER AND [facility] UNSPECIFIED INC UNSPECIFIED SITE 85555 DIVERTICULO 08-10-2014 [facility] SIS OF PHYSICIANS COLON GROUP 5641 IRRITABLE 08-10-2014 [facility] BOWEL PHYSICIANS SYNDROME GROUP 87788 ABDOMINAL 08-10-2014 [facility] PAIN OTHER PHYSICIANS SPECIFIED GROUP SITE V7651 SPECIAL 08-10-2014 [facility] SCREENING PHYSICIANS FOR GROUP MALIGNANT NEOPLASMS COLON V7231 ROUTINE 08-04-2014 [facility] AL EXAMINATION 45705 OTHER 07-28-2014 [facility] CHRONIC PHYSICIANS PAIN GROUP 5699 UNSPECIFIED 05-30-2014 [facility] DISORDER PHYSICIANS OF GROUP INTESTINE 7962 ELEVATED BP 05-30-2014 [facility] READING PHYSICIANS WITHOUT DX GROUP HYPERTENSIO N 8469 UNSPECIFIED 05-26-2014 [facility] SITE N EMERGENCY SACROILIAC PHYSI REGION SPRAIN&STRA IN E9288 OTHER 05-26-2014 [facility] ACCIDENT N EMERGENCY PHYSI 68858 OTHER 03-24-2014 [facility] MALAISE AND [facility] FATIGUE INC 92621 ABDOMINAL 03-24-2014 [facility] PAIN RIGHT [facility] UPPER INC QUADRANT V7612 OTHER 03-24-2014 [facility] SCREENING [facility] MAMMOGRAM INC 79842 ESOPHAGEAL 03-15-2014 [facility] REFLUX PHYSICIANS GROUP 05701 SWELLING OF 03-01-2014 [facility] LIMB [facility] INC 462 ACUTE 01-24-2014 [facility] PHARYNGITIS N EMERGENCY PHYSI 20484 ACUTE 01-24-2014 [facility] LARYNGITIS, N EMERGENCY WITHOUT PHYSI MENTION OF OBSTRUCTIO 2689 UNSPECIFIED 11-23-2013 [facility] DEFICIENCY V5869 LONG-TERM 11-23-2013 [facility] USE OF OTHER MEDICATIONS Medications [...] 60 5- 4- 00 00 IC ve CO 00 20 20 43 ED 10 17 [...] 07 08 20 10 00 CL Ac CO 25 -0 -0 .0 00 IN ti [...] 06 07 30 10 00 CL Ac CO 25 -2 -2 .0 00 IN ti [...] Procedure DOS Code Location Performer Comment RADIOLOGI 85871 [facility] EXAM 7 MEDICAL CHEST 2 IMAGING VIEWS ASS FRONTAL&L ATERAL DRUG TEST 21556 DONNA FARLEY PRSMV 7 SIOBHAN OLVERA MD,[facility] CHEMISTRY ANALYZERS HYALURONA J7321 [facility] N/DERIV 7 PHYSICIAN HYALGAN/S S GROUP UPARTZ IA INJ PER DOSE ARTHROCEN 78524 [facility] TESIS 7 PHYSICIAN ASPIR&/IN S GROUP J MAJOR JT/BURSA W/O US RADEX 30376 [facility] UPPER GI 7 [facility] W/WO INC INC GLUCAGON/ DELAY IMAGES W/KUB RADEX 68937 [facility] UPPER GI 7 MEDICAL W/WO IMAGING GLUCAGON/ ASS DELAY IMGES W/O KUB OCCUPATIO 68333 [facility] ARCE NAL 7 [facility] THERAPY INC INC EVAL LOW COMPLEX 30 MINS HYALURONA J7321 [facility] N/DERIV 7 PHYSICIAN HYALGAN/S S GROUP UPARTZ IA INJ PER DOSE HYALURONA J7321 [facility] N/DERIV 7 PHYSICIAN HYALGAN/S S GROUP UPARTZ IA INJ PER DOSE DRUG TEST 12497 DONNA ARNDT PRSMV 7 BLUE OLVERA MD,[facility] CHEMISTRY ANALYZERS NONEMER A0120 [facility] FEDERATED TRNSPRT: 7 MINI-BUS TRANSPORT TRANSPORT MTN [facility] SER ATFORMERLY [facility] SER AREA/OTH SYS RADEX 95746 [facility] [facility] SHOULDER 7 MEDICAL COMPLETE IMAGING MINIMUM 2 ASS VIEWS INJ J0702 [facility] BETAMETHA 7 PHYSICIAN SONE S GROUP ACETATE & PHOSPHATE 3 MG ARTHROCEN 23723 [facility] TESIS 7 PHYSICIAN ASPIR&/IN S GROUP J MAJOR JT/BUR[place] W/[place] [address] [facility] ARCE TROPONIN 7 [facility] QUANTITAT INC INC UZMA BLOOD 36109 [facility] ARCE COUNT 7 [facility] COMPLETE INC INC AUTO&AUTO DIFRNTL WBC RADIOLOGI 13083 [place] [facility] EXAM 7 MEDICAL CHEST 2 IMAGING VIEWS ASS FRONTAL&[place] [address] GREGORY VASQUEZUTCHER ABDOMEN & 7 MEDICAL PELVIS IMAGING W/O ASS CONTRAST MATERIAL ECG 56822 [facility] ROUTINE 7 [facility] ECG INC INC W/LEAST 12 LDS TRCG ONLY W/O I&R CREATINE 72042 [facility] KINASE 7 [facility] TOTAL INC INC COMPREHEN 67664 [facility] SIVE 7 [facility] METABOLIC INC INC PANEL CREATINE 44416 [facility] ARCE KINASE MB 7 [facility] FRACTION INC INC ONLY ECG 65241 [facility]ARRIS ROUTINE 7 [facility], INC W/LEAST P 12 LDS I&R ONLY RHYTHM 40916 [facility] ARCE ECG 1-3 7 [facility] LEADS INC INC TRACING ONLY W/O [place] [address] [facility] ARCE INFUSION 7 [facility] THERAPY/P INC INC ROPHYLAXI S /DX 1ST TO 1 HR THERAPEUT 96523 [facility] IC 7 [facility] INJECTION INC INC IV PUSH EACH NEW DRUG DRUG TEST 14061 DONNA ARNDT PRSMV 7 BLUE OLVERA INSTRMNElmira SANCHEZ,PSC CHEMISTRY ANALYZERS NONEMERG A0120 FEDERATED FEDERATED TRNSPRT: 7 MINI-BUS TRANSPORT TRANSPORT MTN ATION SER ATION SER AREA/OTH SYS NONEMERG A0120 FEDERATED FEDERATED TRNSPRT: 6 MINI-BUS TRANSPORT TRANSPORT MTN ATION SER ATION SER AREA/OTH SYS DRUG TEST G0479 DONNA ARNDT 6 BLUE OLVERA PRESUMP;I ,PSC NSTRUMENT ED CHEMISTRY ANLYZER CT THORAX 56142 GREGORY CINTRON W/O 6 MEDICAL CONTRAST IMAGING MATERIAL ASS INJECTION J0696 [facility] STONE LALITA 6 PHYSICIAN CEFTRIAXO S GROUP NE SODIUM PER 250 MG INJECTION J1040 [facility] STONE LALITA 6 PHYSICIAN METHYLPRE S GROUP DNISOLONE ACETATE 80 MG THERAPEUT 50577 [facility] STONE LALITA IC 6 PHYSICIAN PROPHYLAC S GROUP TIC/DX INJECTION SUBQ/IM NJX 73922 DONNA FARLEY ANES&/STR 6 SAMI OLVERA W/LEONARDO SANCHEZ,[facility] TFRML EDRL LMBR/SAC 1 LVL NJX 15981 DONNA FARLEY ANES&/STR 6 SAMI OLVERA W/LEONARDO SANCHEZ,PSC TFRML EDRL LMBR/SAC EA LV DRUG TEST G0479 DONNA FALREY 6 SAMI OLVERA;Svetlana SANCHEZ,[facility] NSTRUMENT ED CHEMISTRY ANLYZER NONEMERG A0120 FEDERATED FEDERATED TRNSPRT: 6 MINI-BUS TRANSPORT TRANSPORT MTN ATION SER ATION SER AREA/OT SYS SCREENING G0202 [facility] 6 MEDICAL MAMMOGRAP IMAGING HY PADMA ASS INCL CAD WHEN PERFORMD COMPUTER- 06530 [facility] AIDED 6 MEDICAL DETECTION IMAGING ASS SCREENING MAMMOGRAP HY RADIOLOGI 07430 [facility] ARCE C EXAM 6 [facility] CHEST 2 INC INC VIEWS FRONTAL&L ATERAL NONEMERG A0120 FEDERATED FEDERATED TRNSPRT: 6 MINI-BUS TRANSPORT TRANSPORT MTN ATION SER ATION SER AREA/OT SYS RADIOLOGI 93098 [facility] ARCE C EXAM 6 [facility] KNEE INC INC COMPLETE 4/MORE VIEWS INJECTION J1885 [facility] CHILO 6 PHYSICIAN JUHI KETOROLAC S GROUP TROMETHAM INE PER 15 MG THERAPEUT 89070 [facility] CHILO IC 6 PHYSICIAN JUHI PROPHYLAC S GROUP TIC/DX INJECTION SUBQ/IM CV STRS 14159 [facility] KARISHMA MARCOS TST 6 PHYSICIAN XERS&/OR S GROUP RX CONT ECG W/O I&R CT THORAX 10410 [facility] W/O 6 MEDICAL CONTRAST IMAGING MATERIAL ASS RADIOLOGI 13440 [facility] C 6 MEDICAL EXAMINATI IMAGING ON CHEST ASS SINGLE VIEW FRONTAL RADIOLOGI 34479 [facility] SCOTT C EXAM 6 MEDICAL JUDY CHEST 2 IMAGING VIEWS ASS FRONTAL&L ATERAL RADIOLOGI 62600 [facility] ARCE C EXAM 6 [facility] CHEST 2 INC INC VIEWS FRONTAL&L ATERAL THERAPEUT 38751 [facility] CHILO IC 6 PHYSICIAN JUHI PROPHYLAC S GROUP TIC/DX INJECTION SUBQ/IM INJECTION J0696 [facility] CHILO 6 PHYSICIAN JUHI CEFTRIAXO S GROUP NE SODIUM PER 250 MG LOCM Q9967 [facility] ARCE 300-399 5 [facility] MG/ML INC [place] [address] [facility] ABDOMEN & 5 MEDICAL BERNADETTE PELVIS IMAGING W/CONTRAS ASS T MATERIAL BLOOD 53148 SHRAVAN CRUZ OCCULT 5 NANCY SANCHEZ PHILOMENA PEROXIDAS E ACTV QUAL FECES 1-3 SPEC COLLECTIO 32569 [facility] ARCE N VENOUS 5 [facility] BLOOD INC INC VENIPUNCT URE CREATININ 04215 [facility] ARCE E BLOOD 5 [facility] INC INC URINLS 49615 SHRAVAN CRUZ DIP 5 NANCY SANCHEZ PHILOMENA STICK/TAB LET REAGNT NON-AUTO MICRSCPY CARCINOEM 06045 [facility] BRYONIC 5 [facility] [place] [address] [facility] ARCE UREA 5 [facility] NITROGEN INC INC QUANTITAT UZMA IMMUNOASS 69850 [facility] ARCE AY TUMOR 5 [facility] [place] [address] [facility] TRANSVAGI 5 [place] [address] [facility] ARCE AMYLASE 5 [facility] INC INC URNLS DIP 42600 [facility] ARCE 5 [facility] STICK/TAB INC [place] [address] [facility] ARCE INFUSION 5 [facility] THERAPY/P INC INC ROPHYLAXI S /DX 1ST TO 1 HR THERAPEUT 10181 [facility]CE IC 5 [facility] INJECTION INC INC IV PUSH EACH NEW DRUG COMPREHEN 03934 [facility] SIVE 5 [facility] [address] [facility] ARCE LIPASE 5 [facility] INC INC BLOOD 38272 [facility] ARCE COUNT 5 [facility] MEM [...] PLATELET- [place] IN[place] [address] DEENA CHILDERS JULIANNE JOINT 5 MD PEGGY, ARTHRGRP PSC Y&/ANES/S TEROID W/DICK APPL 86674 [facility] ARCE MODALITY 5 [facility] 1/> AREAS INC INC ELEC STIMJ EA 15 MIN RADEX 54382 [place] BEINEKE ANKLE 5 MEDICAL BERNADETTE COMPLETE IMAGING MINIMUM 3 ASS VIEWS RADEX 54485 [facility] ALL ANKLE 5 MEDICAL COMPLETE IMAGING MINIMUM 3 ASS VIEWS MRI 57197 [facility] SPINAL 5 MEDICAL JUDY CANAL IMAGING LUMBAR ASS W/O CONTRAST MATERIAL 3D 09068 [facility] RENDERING 5 MEDICAL JUDY W/INTERP IMAGING & ASS POSTPROCE SS SUPERVISI ON RADEX 19625 [facility] [facility] ANKLE 5 MEDICAL JUDY COMPLETE IMAGING MINIMUM 3 ASS VIEWS RADEX 54678 [facility] ALL ANKLE 5 MEDICAL COMPLETE IMAGING MINIMUM 3 ASS VIEWS RADEX 37162 [place] [facility] ANKLE 5 MEDICAL JUDY COMPLETE IMAGING MINIMUM 3 ASS VIEWS WALKING L4360 [facility] AD[facility]ANCED BOOT 5 TECHNOLOG TECHNOLOG PNEUMATC IES INC IES INC &/ VACUUM PREFAB CUSTM FIT CLTX DSTL 66522 [facility] FIBULAR 5 PHYSICIAN JAM FX LAT S GROUP MALLS W/O MANJ NONEMERG A0120 FEDERATED FEDERATED TRNSPRT: 5 MINI-BUS TRANSPORT TRANSPORT MTN ATION SER ATION SER AREA/OTH SYS ANKLE L4350 [facility] ADVANCED CONTROL 5 TECHNOLOG TECHNOLOG ORTHOSIS IES INC IES INC STIRRUP STYL RIGID PREFAB RADEX 75117 [facility] SCOTT ANKLE 5 MEDICAL JUDY COMPLETE IMAGING MINIMUM 3 ASS VIEWS RADEX 39726 [facility] FOOT 5 MEDICAL JUDY COMPLETE IMAGING MINIMUM 3 [place] [address] MADAR BUX BUX ANJ JOINT 5 MD [...] INC INC STEROID&/ TX AGT&ARTHR OGRPH FLUOR 51547 [facility] BUX BUX ANJ NEEDLE/CA 5 SPINE/PAR ASPINAL DX/THER ADDON ARTHROCEN 96608 [facility] BUX BUX ANJ TESIS 5 ASPIR&/IN J MAJOR JT/BURSA W/O US APPL 47527 [facility] ARCE MODALITY 5 [facility] 1/> AREAS INC INC ELEC STIMJ UNATTENDE D APPLICATI 75733 [facility] ARCE ON 5 [facility] MODALITY INC INC /> AREAS HOT/COLD PACKS APPL 00321 [facility] ARCE MODALITY 5 [facility] 1/> AREAS INC INC ULTRASOUN D EA 15 MIN MANUAL 61084 [facility] ARCE THERAPY 5 [facility] TQS 1/> INC INC REGIONS EACH 15 MINUTES THERAPEUT 01773 [facility] ARCE IC PX 1/> 5 [facility] AREAS INC INC EACH 15 MIN EXERCISES THERAPEUT 67851 [facility] ARCE IC PX 1/> 5 [facility] AREAS INC INC EACH 15 MIN EXERCISES PHYSICAL 66223 [facility] ARCE THERAPY 5 [facility] EVALUATIO INC INC N EXC B9 50908 [facility] CHILO LESION 5 PHYSICIAN JUHI MRGN XCP S GROUP SK TG T/A/L 1.1-2[place] [address] [facility] SURG 5 [facility] ER [facility] PATHOLOGY GROSS&JUHI ROSCOPIC EXAM RADEX 08876 [facility] ARCE FINGR 5 [facility] MINIMUM 2 INC INC VIEWS RADIOLOGI 93103 [facility] ARCE C EXAM 5 [facility] KNEE INC INC COMPLETE 4/MORE VIEWS THERAPEUT 03960 [facility] CHILO IC 5 PHYSICIAN JUHI PROPHYLAC S GROUP TIC/DX INJECTION SUBQ/IM INJECTION J1885 [facility] CHILO 5 PHYSICIAN JUHI KETOROLAC S GROUP TROMETHAM INE PER 15 MG CYTP C/V 60294 [facility], PICKLESIM AUTO THIN 5 [facility] ER [facility] LYR PREPJ SCR MNL RESCR PHYS INJECTION J1040 [facility] CHILO 5 PHYSICIAN JUHI METHYLPRE S GROUP DNISOLONE ACETATE 80 MG ANES 29502 [facility] 5 ANESTH SHE INTESTINE OF THE BLUE ENDOSCOPY DISTAL DUODENUM SIGMOIDOS 18645 [facility] KASSI TOD COPY FLX 5 PHYSICIAN DX S GROUP W/COLLJ SPEC BR/WA IF PFRMD BASIC 29094 [facility] ARCE METABOLIC 5 [facility] PANEL INC INC CALCIUM TOTAL BLOOD 19441 [facility] AR[facility] COUNT 5 [facility] COMPLETE INC INC AUTO&AUTO DIFRNTL WBC INJECTION J1885 [facility] CHILO 4 PHYSICIAN JUHI KETOROLAC S GROUP TROMETHAM INE PER 15 MG THERAPEUT 13627 [facility] CHILO IC 4 PHYSICIAN JUHI PROPHYLAC S GROUP TIC/DX INJECTION SUBQ/IM THERAPEUT 59247 [facility] CHILO IC 4 PHYSICIAN JUHI PROPHYLAC S GROUP TIC/DX INJECTION SUBQ/IM INJECTION J1100 [facility] CHILO 4 PHYSICIAN JUHI DEXAMETHO S GROUP SONE SODIUM PHOSPHATE 1 MG HYALURONA J7325 [facility] PETTEY N/DERIV 4 PHYSICIAN JAM SYNVISC/S S GROUP YNVISC-ON E IA INJ 1 MG ARTHROCEN 75659 [facility] HIRAL COLLIER 4 PHYSICIAN JAM ASPIR&/IN S GROUP J MAJOR JT/BURSA W/O US HEPATITIS 21902 [facility] ARCE A 4 [facility] ANTIBODY INC INC HAAB RHEUMATOI 35531 [facility] ARCE D FACTOR 4 [facility] QUANTITAT INC INC UZMA HEPATITIS 25171 [facility] C 4 [facility] [place] [address] Y[facility] ARCE BLOOD/URI 4 [facility] C ACID INC INC ANTINUCLE 46211 [facility] AR 4 [facility] ANTIBODIE INC INC S MARIBELL SEDIMENTA 37840 [facility]CE TION RATE 4 [facility] RBC INC INC NON-AUTOM ATED IMMUNOASS 34122 [facility]CE AY NFCT 4 [facility] AGT ANTB INC INC QUAL/SEMI KATHY 1 STEP HEPATITIS 78728 [facility] Briones CORE 4 [facility] ANTIBODY INC INC HBCAB TOTAL HEPATITIS 87937 [facility] B SURF 4 [facility] [address] [facility]CE HEPATITIS 4 [facility] B INC INC SURFACE ANTIGEN GONADOTRO 32389 [facility] PIN [facility] [place] [address] [facility] ABDOMINAL 4 [facility] REAL INC [place] TIME W/[place] [address] [facility] ARCE AMYLASE 4 [facility] INC INC SCREENING G0202 BEINEKE D BEINEKE D 4 MAMMOGRAP HY PADMA INCL CAD WHEN PERFORMD COMPUTER- 00837 [facility] AIDED 4 [facility] DETECTION INC INC SCREENING MAMMOGRAP HY GONADOTRO 38166 [facility] AREC PIN 4 [facility] [place] [address] [facility]CE LIPASE 4 [facility] INC INC CYANOCOBA 60581 Y[facility] ARCE CARISA 4 [facility] VITAMIN INC INC B-12 RADIOLOGI 49300 Y[facility]MIN YAZMIN C EXAM 4 [facility] KNEE INC INC COMPLETE 4/MORE VIEWS URNLS DIP 24799 [facility]CE [facility] STICK/TAB INC INC LET REAGENT AUTO MICROSCOP Y HEMOGLOBI 98243 [facility]CE N 4 [facility] GLYCOSYLA INC INC SHADY A1C GENERAL 00480 [facility]CE HEALTH 4 [facility] PANEL INC INC DUP-SCAN 52595 SCOTT SCOTT XTR VEINS 4 JUDY [place] [address] YAZMIN ARCE THYROXINE 4 [facility] TOTAL INC INC FIBRIN 70448 [facility]CE DGRADJ 4 [facility] PRODUCTS INC INC D-DIMER QUAL/SEMI KATHY THERAPEUT 47697 [facility]CE IC 4 [facility] PROPHYLAC INC INC TIC/DX INJECTION SUBQ/IM BLOOD 71517 [facility]CE COUNT 4 [facility] COMPLETE INC INC AUTO&AUTO DIFRNTL WBC RADIOLOGI 09855 Y[facility]MIN YAZMIN C EXAM 4 [facility] CHEST 2 INC INC VIEWS FRONTAL&L ATERAL CYANOCOBA [address]1032 [facility] CARISA 4 Y Y VITAMIN [facility] B-12 25 87634 [facility] HYDROXY 4 Y Y INCLUDES HOSPITAL HOSPITAL FRACTIONS IF PERFORMED HEMOGLOBI 91628 [facility] N 4 Y Y GLYCOSYLA [facility] SHADY A1C LIPID [address] [facility] PAN[facility] 4 Y Y [facility] COMPREHEN [id number] [facility] SIVE 4 Y Y METABOLIC [facility] PANEL BLOOD 84767 UNIVERS UNIVERSIT COUNT 4 Y Y COMPLETE [facility] [place] [address] [facility] THYROID 4 Y Y [facility] Encounters Encounter Start End Date Code Location Performer Type Date OFFICE 46570 DONNA FARLEY OUTPATIEN 7 7 [place] OLVERA MD,[facility] 25 MINUTES [facility] - 7 7 [facility] - 7 7 [facility] T OFFICE 08099 DONNA ARNDT OUTPATIEN 7 7 BLUE OLVERA VISIT ,[facility] 25 MINUTES [facility]OSP[facility] - 7 7 [facility] T OFFICE 63703 [facility] PETTEY OUTPATIEN 7 7 PHYSICIAN T VISIT S GROUP 10 MINUTES EMERGENCY 38304 [facility] 7 7 [facility] HIGH/URGE NT SEVERITY EMERGENCY 26302 ANDRA FELIX DEPT 7 7 PHYSICIAN VISIT S, [facility] HIGH SEVERITY& THREAT FUNJ OFFICE 17982 [facility] STONE OUTPATIEN 7 7 PHYSICIAN T VISIT S GROUP 25 MINUTES HOSPITAL [facility] - 7 7 [facility] OUT[facility] INC T OFFICE 87052 DONNA ARNDT OUTPATIEN 6 6 BLUE OLVERA VISIT ,[facility] 25 MINUTES HOSPITAL YAZMIN - 6 6 [facility] OUT[facility] INC T OFFICE 82547 [facility] STONE LALITA OUTPATIEN 6 6 PHYSICIAN T VISIT S GROUP 25 MINUTES HOSPITAL [facility] - 6 6 [facility] - 6 6 [facility] INC T OFFICE 86702 [facility] CHILO OUTPATIEN 6 6 PHYSICIAN JUHI T VISIT S GROUP 15 MINUTES OFFICE 23201 DONNA FARLEY OUTPATIEN 6 6 SAMI OLVERA MD,[facility] MINUTES OFFICE 77251 [facility] CHILO OUTPATIEN 6 6 PHYSICIAN JUHI T VISIT S GROUP 15 MINUTES HOSPITAL [facility] - 6 6 [facility] INC T OFFICE 42502 [facility] PETTEY OUTPATIEN 6 6 PHYSICIAN JAM T VISIT S GROUP 15 MINUTES OFFICE 38005 [facility] CHILO OUTPATIEN 6 6 PHYSICIAN JUHI T VISIT S GROUP 15 MINUTES HOSPITAL Y[facility] - 6 6 [facility] OUT[facility] INC T OFFICE 48124 [facility] CHILO OUTPATIEN 6 6 PHYSICIAN JUHI T VISIT S GROUP 10 MINUTES [facility]OSPITAL [facility] - 6 6 [facility] INC T [facility]OSPITAL Y[facility] - 6 6 [facility] OUT[facility] INC T OFFICE 27564 [facility] CHILO OUTPATIEN 6 6 PHYSICIAN JUHI T VISIT S GROUP 10 MINUTES HOSPITAL Y[facility] - 5 5 [facility] OUTPAT[facility] INC [facility] YAZMIN - 5 5 [facility] OUTPATI[facility] INC T OFFICE 58122 SHRAVAN CRUZ OUTPATIEN 5 5 NANCY SANCHEZ [facility] 45 MINUTES [facility] YAZMIN - 5 5 [facility] OUTPATIEN INC T OFFICE 62562 [facility] CHILO OUTPATIEN 5 5 PHYSICIAN JUHI T VISIT S GROUP 15 MINUTES HOSPITAL [facility] - 5 5 [facility] OUT[facility] INC T EMERGENCY 19748 ANDRA JOYNER 5 5 PHYSICIAN Shima LACY S, [facility] T VISIT HIGH/URGE NT SEVERITY [facility]OSP[facility] - 5 5 [facility] - 5 5 [facility] OUT[facility] INC T OFFICE 63719 [facility] PETTEY OUTPATIEN 5 5 PHYSICIAN JAM T VISIT S GROUP 15 MINUTES HOSPITAL [facility] - 5 5 [facility] OUTPATIEN INC T OFFICE 09915 Y[facility]MIN OUTPATIEN 5 5 [facility] T VISIT INC 10 MINUTES HOSPITAL [facility] - 5 5 [facility] OUTPAT[facility] INC T OFFICE 46403 [facility] PETTEY OUTPATIEN 5 5 PHYSICIAN JAM T VISIT S GROUP 10 MINUTES HOSPITAL Y[facility] - 5 5 [facility] OUTPAT[facility] INC T [facility]OSP[facility] - 5 5 [facility] - 5 5 [facility] OUTPATIEN INC T OFFICE 96926 MADAR BUX BUX ANJ OUTPATIEN 5 5 MD T VISIT 10 MINUTES HOSPITAL [facility] - 5 5 [facility] INC T OFFICE 71622 [facility] CHILO OUTPATIEN 5 5 PHYSICIAN JUHI T VISIT S GROUP 15 MINUTES OFFICE 74123 [facility] CHILO OUTPATIEN 5 5 PHYSICIAN JUHI T VISIT S GROUP 15 MINUTES OFFICE 28384 MONISHA BUX BUX ANJ OUTPATIEN 5 5 MD T [facility] YAZMIN - 5 5 [facility] OUTPATIEN INC [facility]OSPITAL [facility] - 5 5 [facility] OUTPATIEN INC T OFFICE 76237 [facility] CHILO OUTPATIEN 5 5 PHYSICIAN JUHI T VISIT S GROUP 10 MINUTES HOSPITAL [facility] - 5 5 [facility] OUTPATIEN INC T OFFICE 42802 [facility] OUTPATIEN 5 5 PHYSICIAN JAM T VISIT S GROUP 15 MINUTES OFFICE 41903 [facility] KASSI TOD OUTPATIEN 5 5 PHYSICIAN T VISIT S GROUP 15 MINUTES PERIODIC 45478 [facility] CHILO PREVENTIV 5 5 PHYSICIAN JUHI E MED EST S GROUP PATIENT 40-64YRS OFFICE 57594 [facility]ILO OUTPATIEN 5 5 PHYSICIAN JUHI T VISIT S GROUP 15 MINUTES HOSPITAL YAZ[facility] - 5 5 [facility] OUTPATIEN INC T OFFICE 55872 [facility] KASSI TOD CONSULTAT 4 4 PHYSICIAN ION S GROUP NEW/ESTAB PATIENT 40 MIN OFFICE 35850 [facility] CHILO OUTPATIEN 4 4 PHYSICIAN JUHI T VISIT S GROUP 10 MINUTES OFFICE 67709 [facility] CHILO OUTPATIEN 4 4 PHYSICIAN JUHI T VISIT S GROUP 15 MINUTES EMERGENCY 19549 [facility] 4 4 RAMU JUHI DEPARTMEN EMERGENCY T VISIT PHYSI HIGH/URGE NT SEVERITY [facility]OSPITAL [facility] - 4 4 [facility] OUTPATIEN [facility] T OFFICE 80915 [facility] PETTEY OUTPATIEN 4 4 PHYSICIAN JAM T NEW 30 S GROUP MINUTES HOSPITAL Y[facility] - 4 4 [facility] OUTPATIEN [facility] T OFFICE 29670 [facility] CHILO OUTPATIEN 4 4 PHYSICIAN JUHI T VISIT S GROUP 15 MINUTES HOSPITAL Y[facility] - 4 4 [facility] OUTPATIEN [facility] YAZMIN - 4 4 [facility] OUTPATIEN [facility] T EMERGENCY 92105 [facility] 4 4 RAMU RAMU DEPARTMEN EMERGENCY EMERGENCY T VISIT PHYSI PHYSI HIGH/URGE NT SEVERITY EMERGENCY 21073 [facility] 4 4 [facility] DEPARTMEN INC T VISIT LOW/MODER SEVERITY HOSPITAL UNIVERSIT - 4 4 [facility] T OFFICE 77802 [facility] OUTPATIEN 4 4 NURSE GÉNESIS T NEW 30 PRACTITIO MINUTES NER GR
--- OUTSIDE RECORDS SUMMARY | 2017-03-04 10:52 | External Medical Summary Rpt ---
Author Author VERONICA Jose, VERONICA Jose Organization [employer] Address Unknown Phone Unavailable
--- OUTSIDE RECORDS SUMMARY | 2017-03-04 10:52 | External Medical Summary Rpt ---
Demographics Preferred Language Bahraini Marital Status Unknown Pentecostalism Affiliation Unknown Race Unknown Ethnic Group Unknown Author Author VERONICA Address Unknown Phone Immunization No patient found.
--- OUTSIDE RECORDS SUMMARY | 2017-03-04 10:52 | External Medical Summary Rpt ---
Demographics Preferred Language Canadian Marital Status Unknown Latter-Day Affiliation Unknown Race Unknown Ethnic Group Unknown Author Author VERONICA Address Unknown Phone Immunization No patient found.
[2017-03-04 11:05] VITALS: BP 160/74
--- NOTE | 2017-03-04 11:36 | RADIOLOGY REPORT PS360 ---
ANKLE-LT-3 VIEWS HISTORY: pain ORDERING PHYSICIAN: Riley Joy MD PATIENT AGE: 56 years COMPARISON: None FINDINGS: No fracture or dislocation. No lytic or blastic change. There is normal mineralization.. The joint spaces are well-preserved. No significant degenerative/arthritic changes. No erosive changes evident. IMPRESSION: Negative right ankle, no acute finding
[2017-03-04] MEDS ORDERED: Oxycodone5 MG (11:38)
--- NOTE | 2017-03-04 11:39 | RADIOLOGY REPORT PS360 ---
ANKLE-RT-3 VIEWS HISTORY: pain ORDERING PHYSICIAN: Riley Joy MD PATIENT AGE: 56 years COMPARISON: 04/11/2015 FINDINGS: There are mild hypertrophic changes along the anterior aspect of the distal tibia and the distal aspect of the lateral malleolus No acute fracture or dislocation. No lytic or blastic change. There is normal mineralization.. The joint spaces are well-preserved. IMPRESSION: 1. Mild degenerative changes with minimal hypertrophic change otherwise negative
--- NOTE | 2017-03-04 11:41 | RADIOLOGY REPORT PS360 ---
FOOT-RT-3 VIEWS HISTORY: pain ORDERING PHYSICIAN: Riley Joy MD PATIENT AGE: 56 years COMPARISON: 10/30/2014 FINDINGS: Weightbearing views are performed No fracture or dislocation. No lytic or blastic change. There is normal mineralization.. The joint spaces are well-preserved. No significant degenerative/arthritic changes. No erosive changes evident. There is minimal hallux valgus with first metatarsophalangeal angle of 16 degrees with minimal osteoarthritic change of the first metatarsophalangeal joint IMPRESSION: Minimal hallux valgus otherwise negative. No significant change
--- NOTE | 2017-03-04 11:43 | RADIOLOGY REPORT PS360 ---
FOOT-LT-3 VIEWS HISTORY: pain ORDERING PHYSICIAN: Riley Joy MD PATIENT AGE: 56 years COMPARISON: None FINDINGS: Weightbearing views are performed No fracture or dislocation. No lytic or blastic change. There is normal mineralization.. The joint spaces are well-preserved. No significant degenerative/arthritic changes. No erosive changes evident. There is a small calcaneal spur millimeters without erosive change. There is minimal hallux valgus of 16 degrees first metatarsophalangeal angle IMPRESSION: Minimal hallux valgus otherwise negative
== END 2017-03-04 11:06 | disposition home or self-care (01) ==
LOC: ER 10:09
DX: M72.2 Plantar fascial fibromatosis (principal); Z72.0 Tobacco use

== ENCOUNTER → 2017-05-06 | Outpatient (CLI) | payer MEDICAID ==
[~2017-05-06] MED LIST changes: +Oxycodone5 MG
--- NOTE | 2017-05-08 05:52 | RADIOLOGY REPORT PS360 ---
MRI-L-SPINE W/O, MRI-3D RENDERING/MYELOGRAM HISTORY: Worsening low back pain LONG STANDING HISTORY OF LBP WORSENING ORDERING PHYSICIAN: IRAIS FARLEY PATIENT AGE: 56 years COMPARISON: 02/27/2015 TECHNIQUE: Standard multiplanar multiecho sequences are performed without contrast. 3-D MIP and myelographic images are also rendered and reviewed FINDINGS: There is normal alignment. The spinal cord ends at the T12-L1 level. Mild levoscoliosis not significantly changed. L1-L2: Unremarkable. L2-L3: Minimal bulging disc eccentric towards the left with minimal left lateral recess narrowing. L3-L4: Mild degenerative disc disease with bulging disc slightly eccentric towards the left along with facet and ligamentum flavum hypertrophy with bilateral lateral recess narrowing greater on the left and mild bilateral foraminal narrowing. Small annular tear suspected posterior aspect of the disc slightly toward the left unchanged. L4-5: Degenerative disc disease with bulging disc along with facet and ligamentum flavum hypertrophy with moderate bilateral lateral recess and mild bilateral foraminal narrowing and with borderline canal stenosis not significantly changed. L5-S1: Mild bulging disc along with mild degenerative disc disease. The disc is slightly eccentric toward the left with mild left lateral recess narrowing at moderate bilateral foraminal narrowing. No disc herniation evident. IMPRESSION: 1. Multilevel lumbar spondylosis with degenerative disc disease, bulging disc, and facet and ligamentum flavum hypertrophy as detailed above. Please see above for detailed description 2. Suspect small annular tear L3-L4 and the left paracentral region. 3. Borderline canal stenosis at L4-5. 4. Overall no significant change. No extruded herniated disc evident
== END ==
LOC: RAD 13:00
DX: M54.5 Low back pain (principal)

== ENCOUNTER 2017-06-03 16:02 | Emergency (ER) | payer MEDICAID ==
[~2017-06-03] VITALS: Ht 177.8 cm; Wt 104.3 kg
[2017-06-03 16:24] LABS: HEMOGLOBIN 14.6 g/dL (12.2-16.2); LYMPH # 1.3 K/mm3 (0.7-4.5); LYMPH % 15.1 % (10-50.0)
--- OUTSIDE RECORDS SUMMARY | 2017-06-03 16:38 | External Medical Summary Rpt | CCD ---
Demographics Preferred Language Greenlandic Marital Status Unknown Congregational Affiliation Unknown Race Unknown Ethnic Group Unknown Author Author VERONICA Address Unknown Phone [email or web address] Purpose Continuity of Care Document - through 2016
--- OUTSIDE RECORDS SUMMARY | 2017-06-03 16:38 | External Medical Summary Rpt | CCD ---
Author Author , VERONICA MARTIN Address Unknown Phone [email or web address] Purpose Continuity of Care Document - 06-03-2017 through 2016 Problems Code Diagnosis DOS Provider Status J02.9 ACUTE PHARYNGITIS , UNSPECIFIED J04.0 ACUTE LARYNGITIS K52.9 NONINFECTIV E GASTROENTER ITIS AND COLITIS, UNSPECIFIED K57.90 DVRTCLOS OF INTEST, PART UNSP, W/O PERF OR ABSCESS W/O BLEED M72.2 PLANTAR FASCIAL FIBROMATOSI S S90.30XA CONTUSION OF UNSPECIFIED FOOT, INITIAL ENCOUNTER T14.8 OTHER INJURY OF UNSPECIFIED BODY REGION T14.8XXA OTHER INJURY OF UNSPECIFIED BODY REGION, INITIAL ENCOUNTER
--- OUTSIDE RECORDS SUMMARY | 2017-06-03 16:38 | External Medical Summary Rpt ---
Author Author [employer], [employer] Organization [employer] Address Unknown Phone Unavailable Results CBC W Auto Differential panel in Blood Observa Value Referen Units Interpr Notes Date tion ce etation Range Basophils 0 - 0.2 K/MM3 Normal No Jun 03 informati 2016 4:15 [#/volume on in PM ] in source Blood by data Automated count Basophils 0.1 - 2.0 % Normal No Jun 03 informati 2016 4:15 leukocyte on in PM s in source Blood by data Automated count Eosinophi 0.0 - 0.4 K/mm3 Normal No Jun 03 ls informati 2016 4:15 [#/volume on in PM ] in source Blood by data Automated count Eosinophi 0.1 - % Normal No Jun 03 ls/100 12.0 informati 2016 4:15 leukocyte on in PM s in source Blood by data Automated count Granulocy 1.8 - 7.8 K/mm3 Normal No Jun 03 domingo informati 2016 4:15 [#/volume on in PM ] in source Blood by data Automated count Granulocy 37.0 - % Normal No Jun 03 domingo/100 80.0 informati 2016 4:15 leukocyte on in PM s in source Blood by data Automated count Hematocri 37.0 - % Normal No Jun 03 t [Volume 47.0 informati 2016 4:15 on in PM Fraction] source of Blood data Hemoglobi 12.2 - g/dL Normal No Jun 03 n 16.2 informati 2016 4:15 [Mass/vol on in PM ume] in source Blood data Lymphocyt 0.7 - 4.5 K/mm3 Normal No Jun 03 es informati 2016 4:15 [#/volume on in PM ] in source Unspecifi data ed specimen by Automated count Lymphocyt 10 - 50.0 % Normal No Jun 03 es informati 2016 4:15 [#/volume on in PM ] in source Unspecifi data ed specimen by Automated count Erythrocy 27 - 31.2 pg Normal No Jun 03 te mean informati 2017 4:15 corpuscul on in PM ar source hemoglobi data n [Entitic mass] Erythrocy 31.8 - g/dl Normal No Jun 03 te mean 35.4 informati 2017 4:15 corpuscul on in PM ar source hemoglobi data n concentra tion [Mass/vol ume] by Automated count Erythrocy 82.2 - fl Normal No Jun 03 te mean 97.8 informati 2017 4:15 corpuscul on in PM ar volume source [Entitic data volume] by Automated count Monocytes 0.1 - 1.0 K/mm3 Normal No Jun 03 informati 2016 4:15 [#/volume on in PM ] in source Blood by data Automated count Monocytes 1.7 - 9.3 % Normal No Jun 03 /100 informati 2017 4:15 leukocyte on in PM s in source Blood by data Automated count Platelet 7.4 - fl Normal No Jun 03 mean 10.4 informati 2017 4:15 volume on in PM [Entitic source volume] data in Blood by Automated count Platelets 142 - 424 K/mm3 Normal No Jun 03 informati 2016 4:15 [#/volume on in PM ] in source Blood data Erythrocy 4.2 - 5.4 M/mm3 Normal No Jun 03 domingo informati 2017 4:15 [#/volume on in PM ] in source Amniotic data fluid Erythrocy 11.5 - % Normal No Jun 03 te 17.5 informati 2016 4:15 distribut on in PM ion width source [Entitic data volume] by Automated count Leukocyte 4.8 - K/MM3 Normal No Jun 03 s 10.8 informati 2016 4:15 [#/volume on in PM ] in source Blood data
--- OUTSIDE RECORDS SUMMARY | 2017-06-03 16:38 | External Medical Summary Rpt | CCD ---
Author Author , VERONICA MARTIN Address Unknown Phone [email or web address] Immunization Name Date Rout CVX Reac Dose Comm Prov Is Faci e tion ent ider Refu lity Give sed n Infl 09-1 999 Hist GSHA No GSHA uenz 3-20 oric NE NE a 11 al Quad Info rmat W/Pr ion es - Sour ce Unsp ecif ied
--- OUTSIDE RECORDS SUMMARY | 2017-06-03 16:38 | External Medical Summary Rpt | CCD ---
Author Author , VERONICA MARTIN Address Unknown Phone [email or web address] Purpose Continuity of Care Document - 06-03-2017 [...]
--- OUTSIDE RECORDS SUMMARY | 2017-06-03 16:38 | External Medical Summary Rpt | CCD ---
Author Author , VERONICA MARTIN Address Unknown Phone [email or web address] Immunization Name Date Rout CVX Reac Dose Comm Prov Is Faci e tion ent ider Refu lity Give sed n Infl 09-1 999 Hist GSHA No GSHA uenz 3-20 oric NE NE a 11 al Quad Info rmat W/Pr ion es - Sour ce Unsp ecif ied
--- OUTSIDE RECORDS SUMMARY | 2017-06-03 16:38 | External Medical Summary Rpt | CCD ---
Demographics Preferred Language Khmer Marital Status Unknown Jew Affiliation Unknown Race Unknown Ethnic Group Unknown Author Author VERONICA Address Unknown Phone [email or web address] Purpose Continuity of Care Document - through 2016
--- NOTE | 2017-06-03 17:46 | Emergency Room Report ---
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 N Clinical Suspician of Infection? N Mental Status: 1 - Regular (Normal Baseline) Sepsis Risk:Low Sepsis Risk Have you (or family members/close friends) recently traveled outside the [place]? N If Yes, where/when: Have you had exposure to infectious disease within the past month? N TB? Other? Specify: 56 years old white female with history of peptic ulcer disease and irritable bowel syndrome. She developed abdominal pain for the last week and started vomiting yesterday mixed with blood. She denies coffee-ground emesis she denies having black stool or bleeding.. Source patient, RN notes reviewed, family Exam Limitations no limitations ALLERGIES Coded Allergies: duloxetine (From CYMBALTA) (Mild, 06/08/15) pregabalin (From LYRICA) (Mild, 06/08/15) Home Medications Active Scripts DICYCLOMINE HCL (Bentyl) 10 MG PO TIDP PRN cramping #10 CAP Prov: 10/08/16 Reported Medications Gabapentin (Neurontin 300MG) 300 MG PO BID OXYCODONE HCL (Oxycodone) Esomeprazole Magnesium (Nexium) 20 MG PO DAILY History Medical History General CAD? No Angina: No [place]: No Hypertension? No Hyperlipidemia? No CHF? No DVT? No PE? No COPD? No Asthma? No Anemia? No GERD? No Gastric ulcers? No GI Bleed? No Hernia? No Thyroid Problems? No Hypothyroidism? No CVA? No Seizures? No Diabetes? No Renal Insuffiency? No End Stage Renal Disease? No UTI? No Stones? No BPH? No GB Disease: No Nephritic Syndrome? No Asplenia? No Hepatitis? No Sickle Cell Disease? No Arthritis? Yes Migraines? No Cataracts? No Glaucoma? No MRSA? No HIV? No TB? No Anxiety? No Depression? No Cancer? 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 Respiratory no symptoms reported Cardiovascular no symptoms reported Gastrointestinal see HPI, abdominal pain, vomiting (hematemesis) Genitourinary no symptoms reported. Musculoskeletal no symptoms reported Skin no symptoms reported Psychiatric/Neurological no symptoms reported Physical Exam Vital Signs Vital Signs Date Time Temp Pulse Resp B/P Pulse O2 O2 Flow FiO2 Ox Delivery Rate 06/03 1834 98.3 83 14 135/87 95 06/03 1817 83 14 135/87 95 06/03 1752 85 122/91 06/03 1752 89 141/91 06/03 1751 83 137/85 06/03 1608 98.3 88 18 147/77 98 - WBC >12,000 or <4,000 or 10% bands? 2 or more SIRS Criteria Met? B/P:147/77 MAP:100 Creatinine >2.0? UA output<0.5ml/kg/hr for 2 hrs? Platelet count >100,000? Lactate >2.0mmol/1? INR >1.2 or PTT > than 60 sec? Evidence of Organ Dysfunction? Provider documented clinical suspician of infection? N Sepsis Criteria Count: 0 Sepsis Risk: Low Sepsis Risk General Appearance normal appearance, WD/WN Eye Exam - bilateral eye normal exam, bilateral eye PERRL, bilateral eye EOMI Ear, Nose, Throat hearing grossly normal, normal ENT inspection Neck normal inspection, non-tender, supple, full range of motion Respiratory Status Yes: trachea midline, chest symmetrical, non tender chest. No: respiratory distress. Lung Sounds bilateral: normal breath sounds, lungs clear. Cardiovascular normal exam, regular rate/rhythm, no peripheral edema, no gallop, no JVD, no murmur, no rub, normal peripheral pulses Peripheral Pulses Pulses normal Yes Gastrointestinal normal bowel sounds, soft, tenderness, abdomen soft diffuse abdominal tenderness no rebound no cross tenderness positive bowel sounds Back normal inspection, no CVA tenderness, no vertebral tenderness Rectal normal exam Neurologic alert, data specialist II-XII nml as tested, normal exam, oriented x 3 Reflexes Reflexes normal Yes Mental status normal mood/affect Skin intact, normal color, warm/dry Medical Decision Making LABS/Meds/Orders Pt receiving controlled substance in ED? No Results/Orders Laboratory Tests 06/03/17 1745: Stool Occult Blood NEGATIVE 06/03/17 1725: Urine Color YELLOW, Urine Appearance SL CLOUDY, Urine pH 8.5, Ur Specific [place] 1.010, Urine Protein NEGATIVE, Urine Ketones NEGATIVE, Urine Blood NEGATIVE, Urine Nitrate NEGATIVE, Urine Bilirubin NEGATIVE, Urine Urobilinogen 0.2, Ur Leukocyte Esterase NEGATIVE, Urine Glucose NEGATIVE 06/03/17 1615: Sodium 141, Potassium 4.2, Chloride 100, Carbon Dioxide 33 H, BUN 11, Creatinine 0.9, Estimated Creat Clear 112, Estimated GFR (MDRD) 64, Glucose 100, Calcium 9.3, Total Bilirubin 1.0, AST 16, ALT 16, Alkaline Phosphatase 120 H, Total Protein 7.3, Albumin 3.8, Globulin 3.5 H, Albumin/Globulin Ratio 1.1, Amylase 42, Lipase 95, WBC 8.4, RBC 4.93, Hgb 14.6, Hct 44.2, MCV 89.7, RDW 13.3 , Plt Count 278, MPV 8.7, Gran % 78.0, Gran # 6.5, Lymphocytes % 15.1, Monocytes % 5.7, Eosinophils % 0.8, Basophils % 0.5, Lymphocytes # 1.3, Monocytes # 0.5, Eosinophils # 0.1, Basophils # 0.0, PUBS MCHC 33.1, MCH 29.7 Current Medication Orders Sig/Ellis Start time Last Medication Dose Route Stop Time Status Admin Famotidine 20 MG ONCE ONE 06/03 1745 DC 06/03 IV 06/03 1746 174 Famotidine 0 .STK-MED ONE 06/03 1745 DC IV Pantoprazole Sodium 40 MG ONCE ONE 06/03 1745 DC 06/03 IV 06/03 1746 1746 Sodium Chloride 8 ML ONCE ONE 06/03 1745 DC 06/03 IV 06/03 174 1747 Sodium Chloride 10 ML ONCE ONE 06/03 1745 DC 06/03 IV 06/03 174 1747 Ondansetron HCl 4 MG ONCE ONE 06/03 1645 DC 06/03 IV 06/03 164 1716 Sodium Chloride 1,000 ML .Q1H1M 06/03 1645 DC 06/03 IV 06/03 1745 171 Sodium Chloride 10 ML PRN PRN 06/03 1645 DCD 06/03 IV 06/04 1632 1747 Ondansetron HCl 0 .STK-MED ONE 06/03 1617 DC .ROUTE Pantoprazole Sodium 0 .STK-MED ONE 06/03 1617 DC IV Sodium Chloride 1,000 ML .STK-MED ONE 06/03 161 DC IV Orders Procedure Date/time Status DIET-NOTHING BY MOUTH 06/03 D Active ORTHOSTATIC B/P 06/03 1741 Active STOOL OCCULT BLOOD 06/03 1741 Complete URINALYSIS/COMPLETE 06/[address] ABD REQUEST 06/03 1618 Complete LIPASE 06/03 1618 Complete COMPLETE METABOLIC PANEL 06/03 1618 Complete CBC WITH AUTO DIFF 06/03 1618 Complete AMYLASE 06/[address] ABD & PELVIS W/O CONTRAST 06/03 UNK Active Departure Departure Time of Disposition 1838 Disposition Against Medical Advice Clinical Impression Primary Impression: Hematemesis Secondary Impressions: Enteritis, IBS (irritable bowel syndrome), Mesenteric adenitis, PUD (peptic ulcer disease) Condition STABLE Referrals DECLAN ROSS (Family) Additional Instructions After obtaining her orthostatic and hemoccult I called Dr Kumari to admit Mrs Reeves, while I was waiting I was told by the nursing staff that she became verbally abusive and used foul language adn signed againest medical advice. Discharge Counseling Counseled pt/family regarding diagnosis, test results, medications/RX ED Critical Care Critical Care No If Critical Care minutes are documented, the time involved in the performance of seperately reportable procedures was not counted toward critical care time documented. I directly delivered medical care to this critically ill and/or injured patient. Timely evaluation and treatment was necessary to address the significant organ system(s) dysfunction present in this patient.
[2017-06-03 17:52] LABS: URINE BILIRUBIN - DIPSTICK NEGATIVE (NEG); URINE BLOOD NEGATIVE (NEG)
[2017-06-03 17:53] LABS: STOOL OCCULT BLOOD NEGATIVE (NEG)
[2017-06-03 18:34] VITALS: BP 135/87
--- NOTE | 2017-06-04 07:23 | RADIOLOGY REPORT PS360 ---
CT ABD PELVIS W/O CONTRAST CLINICAL INDICATION: ABD PAIN, VOMITING, DIARRHEA ORDERING PHYSICIAN: Jess Berg MD PATIENT AGE: 56 years COMPARISON: 10/08/2016 TECHNIQUE: Axial images obtained with sagittal and coronal reformats. PROCEDURE: Oral Contrast: None IV Contrast: None . FINDINGS: Lung bases are clear. The liver, spleen, adrenal glands, pancreas, kidneys, ureters and urinary bladder have an unremarkable appearance. The gallbladder is slightly distended. No radio opaque stones are evident. Common bile duct is also prominent. The distal common duct stone is not excluded. MRCP may be of further value. No intestinal obstruction or free air. No evidence of appendicitis, intestinal obstruction, free air, or diverticulitis. There are multiple unopacified bowel loops present within the abdomen/pelvis which could obscure or mimic pathology. If symptoms persists, consider repeating exam with IV and oral contrast administration. Is mild haziness of the mesentery's with small lymph nodes in the small bowel mesentery's nonspecific and may be reactive in nature not significant changed. No acute bony anomalies. IMPRESSION: 1. Distended gallbladder with mild prominence of the common bile duct. Distal common duct stone or other lesion is not excluded. MRCP may be of further value. Common bile duct measures up to 12 mm in diameter. 2. There are multiple unopacified bowel loops present within the abdomen/pelvis which could obscure or mimic pathology. If symptoms persists, consider repeating exam with IV and oral contrast administration 3. Hazy density about the mesenteric axis with small mesenteric lymph nodes not significant changed and may be reactive in nature versus mesenteric adenitis
== END 2017-06-03 18:34 | disposition still patient (30) ==
LOC: ER 16:02
PROVIDERS: Emergency Medicine
DX: K27.0 Acute peptic ulcer, site unspecified, with hemorrhage (principal); K58.9 Irritable bowel syndrome, unspecified; I88.0 Nonspecific mesenteric lymphadenitis
CPT/HCPCS: G0328; J2405

== ENCOUNTER → 2017-07-01 | Outpatient (CLI) | payer MEDICAID ==
--- NOTE | 2017-07-02 10:15 | RADIOLOGY REPORT PS360 ---
MRI-ABD W/O, MRCP RECON CLINICAL INDICATION: COMMON BILE DUCT DILATION ORDERING PHYSICIAN: FREYA PLUMMER PATIENT AGE: 57 years TECHNIQUE: Multiplanar multiecho sequences are performed without contrast with MRCP reformats. COMPARISON: CT scan of 06/03/2017 FINDINGS: The liver, spleen, adrenal glands, and pancreas have unremarkable appearance. Common bile duct is slightly prominent measuring up to 10 mm in transverse dimension. No obvious common duct stones are evident. There is tapering of the common bile duct noted on the MRCP images. No definite filling defect or stricture is apparent. The pancreatic duct is normal in caliber. No gallstones demonstrated. IMPRESSION: 1. Mild prominence of the common bile duct measuring up to 10 mm in diameter. No obvious stricture or common duct stone. 2. Unremarkable appearing pancreatic duct
== END ==
LOC: RAD 08:25
DX: K83.8 Other specified diseases of biliary tract (principal)